=== PATIENT | female | born 1980 | race African-American/Black ===

== ENCOUNTER 2022-10-13 06:21 | Emergency (ER) | payer MEDICAID, OTHER ==
[~2022-10-13] VITALS: Ht 154.9 cm; Wt 66.3 kg
[~2022-10-13 06:21] MED LIST: PRED15SO26 GT
[2022-10-13 06:58] VITALS: BP 146/84; PULSE 94; RESP 16; TEMP 98.1; O2SAT 100
[2022-10-13] MEDS ORDERED: KETOROLAC TROMETH 60MG/2ML VIAL IM ONE (07:15)
[2022-10-13] MEDS ORDERED: PRED20TA2 PO (07:28)
[2022-10-13] MEDS ORDERED: ACET-1080 PO (07:28)
== END 2022-10-13 07:22 | disposition home or self-care (01) ==
LOC: ER 06:21
DX: M79.642 Pain in left hand (principal); E11.9 Type 2 diabetes mellitus without complications; Z79.899 Other long term (current) drug therapy
CPT/HCPCS: 96372; 99283; J1885

== ENCOUNTER 2023-02-13 03:40 | Inpatient (IN) | payer MEDICAID ==
[~2023-02-13] VITALS: Ht 154.9 cm; Wt 73.0 kg
[~2023-02-13 03:40] MED LIST changes: +ACET-1080 PO; +PRED20TA2 PO
[2023-02-13 05:28] LABS: Hemoglobin 8.9 g/dL (12.2-16.2); White Blood Cell 2.2 10^3/uL (4.4-10.8)
[2023-02-13 05:32] LABS: Hematocrit 27.4 % (36.0-46.0); Mean Corpuscular Hgb Conc. 32.5 g/dL (32.0-36.0); Mean Corpuscular Volume 107.8 fL (80.0-100.0); Red Blood Cells 2.54 10^6/uL (4.0-5.20); Red Cell Distribution Width 17.5 % (11.8-14.3)
[2023-02-13 05:34] LABS: Alanine Aminotransferase 44 U/L (7-40); Alkaline Phosphatase 72 U/L (46-116); Anion Gap 12 (5-15); Aspartate Aminotransferase 72 U/L (13-40); BUN/Creatinine Ratio 15.9 (10.0-20.0); Blood Urea Nitrogen 17 mg/dL (9-23); Carbon Dioxide 19 mmol/L (20-30); Chloride 99 mmol/L (98-107); Lipase 190 U/L (12-53); Magnesium 1.7 mg/dL (1.6-2.6); Potassium 3.3 mmol/L (3.5-5.1); Sodium 130 mmol/L (136-145)
[2023-02-13 05:35] LABS: Bilirubin, Total 0.9 mg/dL (0.2-1.0); Total Protein 7.7 g/dL (5.7-8.2)
[2023-02-13 05:42] LABS: INR 1.09 (0.9-1.15); Partial Thromboplastin Time 28.7 SEC (24.5-34.5); Prothrombin Time 11.4 sec (9.3-11.8)
[2023-02-13 05:52] LABS: Basophils % (manual) 0 (0.0-2.0); Blast Cells 0; Eosinophils % (manual) 0 (0-7); Metamyelocytes % 0; Myelocytes % 0; Promyelocytes % 0; Reactive Lymphocytes 0
[2023-02-13 06:03] LABS: Glucose 418 mg/dL (74-106)
[2023-02-13 06:52] LABS: Anisocytosis Slight; Band Neutrophils % (manual) 22; Lymphocytes % (manual) 11 (10.0-50.0); Macrocytosis Marked; Monocytes % (manual) 3 (0-12)
[2023-02-13 06:53] LABS: Platelet Estimate Decreased; Stomatocytes Few; Target Cell FEW
[2023-02-13] MEDS ORDERED: ENOXAPARIN SOD 60 MG/0.6 ML SYRINGE SC ONE (09:00)
[2023-02-13] MEDS ORDERED: InsuLIN REG 1unit/0.01ml Soln (100units/ml) IV ONE (09:00)
[2023-02-13 11:10] VITALS: PULSE 122; RESP 18; O2SAT 99
[2023-02-13] MEDS ORDERED: DEXTROSE (50%) 50ML SYRG IV PRN (11:30)
[2023-02-13] MEDS ORDERED: MORPHINE SULFATE INJ 2 MG/ml SYRG IV PRN (11:45)
[2023-02-13] MEDS ORDERED: NITROGLYCERIN 0.4 MG SL TAB SL PRN (11:45)
[2023-02-13] MEDS ORDERED: INSULIN LANTUS (GLARGINE) 1 /0.01ml (100units/ml) SC ONE (12:30)
[2023-02-13] MEDS ORDERED: cefTRIAXone 1GM/50ML D5W 50 ML IV ONE (12:30)
[2023-02-13] MEDS ORDERED: VANCOMYCIN PER PHARMACY 0 MG IV SCH (12:30)
[2023-02-13] MEDS ORDERED: VANCOMYCIN 1GM/200ML 250 ML IV ONE (13:15)
[2023-02-13] MEDS: ACCU-CHEK COMFORT CURVE STRIP VI SCH ×3 (13:30→22:00)
[2023-02-13] MEDS: InsuLIN REG 1unit/0.01ml Soln (100units/ml) SC SCH ×3 (13:48→22:40)
[2023-02-13 13:52] LABS: COVID19 ANTIGEN SOFIA FIA NEGATIVE (NEGATIVE); Rapid Influenza A Negative (Negative); Rapid Influenza B Negative (Negative)
[2023-02-13 14:24] LABS: Basophils # (auto) 0 10 ^3/uL (0-0.2); Basophils % (auto) 0.5 % (0.0-2.0); Eosinophils # (auto) 0 10 ^3/uL (0-0.8); Eosinophils % (auto) 0.2 % (0.0-7.0); Lymphocytes # (auto) 0.3 10 ^3/uL (0.4-5.4); Monocytes # (auto) 0.1 10 ^3/uL (0-1.3); White Blood Cell 2.4 10^3/uL (4.4-10.8)
[2023-02-13 14:26] LABS: Hematocrit 25.4 % (36.0-46.0); Hemoglobin 8.2 g/dL (12.2-16.2); Lymphocytes % (auto) 13.2 % (10.0-50.0); Mean Corpuscular Hemoglobin 34.9 pg (28.0-32.0); Mean Corpuscular Hgb Conc. 32.4 g/dL (32.0-36.0); Monocytes % (auto) 2.8 % (0.0-12.0); Neutrophils % (auto) 83.3 % (37.0-80.0); Nucleated Red Blood Cells % 0.3 %; Red Blood Cells 2.35 10^6/uL (4.0-5.20); Red Cell Distribution Width 17.6 % (11.8-14.3)
[2023-02-13 15:28] LABS: Platelet Estimate Markedly Decreased
[2023-02-13] MEDS ORDERED: FUROSEMIDE 40 MG/4 ML VIAL IV ONE (15:30)
[2023-02-13 16:38] LABS: Urine Bacteria NONE SEEN /hpf (None Seen); Urine Blood 2+ /uL (Negative); Urine Clarity Clear (Clear); Urine Color Yellow (Yellow); Urine Protein, UAD 2+ (Negative); Urine Specific Gravity 1.021 (1.001-1.035); Urine Urobilinogen Normal (Negative); Urine WBC 1 /hpf (0 - 5)
[2023-02-13] MEDS ORDERED: ACETAMINOPHEN 325 MG TAB PO PRN (17:15)
[2023-02-13] MEDS ORDERED: ONDANSETRON HCL 4 MG/2 ML VIAL IV PRN (17:15)
[2023-02-13] MEDS: POTASSIUM CHL 20MEQ/100ML 100 ML IV SCH ×2 (17:52→21:07)
[2023-02-13] MEDS: MAGNESIUM SULFATE 1GM/100ML 100 ML IV SCH ×2 (18:39→21:38)
[2023-02-14] MEDS: ACCU-CHEK COMFORT CURVE STRIP VI SCH ×4 (06:31→21:48)
[2023-02-14] MEDS: INSULIN LANTUS (GLARGINE) 1 /0.01ml (100units/ml) SC SCH (06:32)
[2023-02-14] MEDS: InsuLIN REG 1unit/0.01ml Soln (100units/ml) SC SCH ×4 (06:32→21:48)
[2023-02-14 07:34] LABS: Basophils # (auto) 0 10 ^3/uL (0-0.2); Eosinophils # (auto) 0 10 ^3/uL (0-0.8); Lymphocytes # (auto) 0.3 10 ^3/uL (0.4-5.4); Monocytes # (auto) 0.1 10 ^3/uL (0-1.3); White Blood Cell 2.4 10^3/uL (4.4-10.8)
[2023-02-14 07:38] LABS: Basophils % (auto) 0.1 % (0.0-2.0); Hematocrit 22.8 % (36.0-46.0); Hemoglobin 7.4 g/dL (12.2-16.2); Lymphocytes % (auto) 10.7 % (10.0-50.0); Mean Corpuscular Hemoglobin 35.4 pg (28.0-32.0); Mean Corpuscular Hgb Conc. 32.2 g/dL (32.0-36.0); Mean Corpuscular Volume 109.9 fL (80.0-100.0); Monocytes % (auto) 5.1 % (0.0-12.0); Neutrophils % (auto) 84.1 % (37.0-80.0); Nucleated Red Blood Cells % 0.3 %; Red Blood Cells 2.08 10^6/uL (4.0-5.20); Red Cell Distribution Width 18.5 % (11.8-14.3)
[2023-02-14 07:55] LABS: Alanine Aminotransferase 42 U/L (7-40); Albumin 3.1 g/dL (3.2-4.8); Alkaline Phosphatase 54 U/L (46-116); Anion Gap 10 (5-15); Aspartate Aminotransferase 109 U/L (13-40); BUN/Creatinine Ratio 8.9 (10.0-20.0); Blood Urea Nitrogen 8 mg/dL (9-23); Calcium 8.1 mg/dL (8.5-10.1); Carbon Dioxide 17 mmol/L (20-30); Chloride 106 mmol/L (98-107); Glucose 160 mg/dL (74-106); LDL Cholesterol 59 mg/dL (< 100); Potassium 3.3 mmol/L (3.5-5.1); Sodium 133 mmol/L (136-145); Triglycerides 179 mg/dL (< 150)
[2023-02-14 07:56] LABS: Bilirubin, Total 0.4 mg/dL (0.2-1.0); Cholesterol 142 mg/dL (< 200); HDL Cholesterol 51 mg/dL (40-59); Phosphorus 1.6 mg/dL (2.4-5.1); Total Protein 6.1 g/dL (5.7-8.2)
[2023-02-14 08:00] LABS: Lactic Acid w/Reflex 2.9 mmol/L (0.4-2.0)
[2023-02-14 08:15] LABS: Platelet Estimate Decreased
[2023-02-14 08:16] LABS: Macrocytosis Moderate
[2023-02-14 08:21] LABS: Creatinine, Urine 67.24 mg/dL (30.0-125.0)
[2023-02-14 08:35] LABS: % Iron Saturation 4.9 % (15-50)
[2023-02-14 08:39] LABS: Erythrocyte Sedimentation Rate 129 mm/hr (0-20)
[2023-02-14 08:46] LABS: Magnesium 1.7 mg/dL (1.6-2.6)
[2023-02-14 09:00] VITALS: BP 147/87; PULSE 128; RESP 16; TEMP 98.2; O2SAT 96
[2023-02-14] MEDS ORDERED: POTASSIUM EFFERVESENT TAB 25 MEQ PO ONE (09:15)
[2023-02-14] MEDS: cefTRIAXone 1GM/50ML D5W 50 ML IV SCH (10:44)
[2023-02-14] MEDS: PANTOPRAZOLE 40 MG TAB PO SCH (10:45)
[2023-02-14] MEDS: VANCOMYCIN 1GM/200ML 250 ML IV SCH (10:45)
[2023-02-14] MEDS: FUROSEMIDE 40 MG/4 ML VIAL IV SCH (10:46)
[2023-02-14 10:59] LABS: Folate (Folic Acid) 15.53 ng/mL (>5.38)
[2023-02-14 13:00] VITALS: BP 138/89; PULSE 129; RESP 16; TEMP 100.2; O2SAT 90
[2023-02-14] MEDS ORDERED: SODIUM PHOSPHATES 24 MEQ in SODIUM CHL 0.9% 100 ML IV ONE (13:45)
[2023-02-14] MEDS: MAGNESIUM SULFATE 1GM/100ML 100 ML IV SCH ×2 (15:18→18:32)
[2023-02-14 17:00] VITALS: BP 135/78; PULSE 120; RESP 18; TEMP 98.2; O2SAT 95
[2023-02-14] MEDS: HYDROcodone-ACET 5/325MG TAB PO PRN (18:31)
[2023-02-14 20:00] VITALS: BP 124/74; PULSE 121; PULSE 123; RESP 20; TEMP 98.5; O2SAT 97
[2023-02-14] MEDS ORDERED: ERGOCALCIFEROL 50,000 UNIT(1.25MG) CAP PO SCH (21:30)
[2023-02-14] MEDS: DOCUSATE SOD 100 MG CAP PO SCH (21:48)
[2023-02-14 22:00] VITALS: BP 124/74; PULSE 123; RESP 20; TEMP 98.5; O2SAT 97
[2023-02-15] VITALS (7 sets, daily range): BP systolic 140–150; BP diastolic 57–86; PULSE 123–140; RESP 16–20; TEMP 97.7–103.2; O2SAT 93–100
[2023-02-15] MEDS ORDERED: MUPI2OIN2 TOP (00:16)
[2023-02-15] MEDS ORDERED: OMEP-411 PO (00:16)
[2023-02-15] MEDS ORDERED: METF-1145 PO (00:16)
[2023-02-15] MEDS ORDERED: ACET300T49 PO (00:16)
[2023-02-15] MEDS ORDERED: AMLO1TAB22 PO (00:16)
[2023-02-15] MEDS ORDERED: CYCL-611 PO (00:16)
[2023-02-15] MEDS ORDERED: INSU1INJ3 SC (00:16)
[2023-02-15] MEDS ORDERED: CETI-120 PO (00:16)
[2023-02-15] MEDS: VANCOMYCIN 1GM/200ML 250 ML IV SCH ×2 (00:31→10:48)
[2023-02-15] MEDS ORDERED: MAGN400T40 PO (00:52)
[2023-02-15] MEDS: ACCU-CHEK COMFORT CURVE STRIP VI SCH ×4 (06:02→21:51)
[2023-02-15] MEDS: InsuLIN REG 1unit/0.01ml Soln (100units/ml) SC SCH ×4 (06:02→21:51)
[2023-02-15] MEDS: INSULIN LANTUS (GLARGINE) 1 /0.01ml (100units/ml) SC SCH (06:03)
[2023-02-15 07:10] LABS: Hemoglobin 7.3 g/dL (12.2-16.2); Red Blood Cells 2.08 10^6/uL (4.0-5.20)
[2023-02-15 07:12] LABS: Hematocrit 22.6 % (36.0-46.0); Mean Corpuscular Hemoglobin 35.2 pg (28.0-32.0); Mean Corpuscular Hgb Conc. 32.3 g/dL (32.0-36.0); Red Cell Distribution Width 17.9 % (11.8-14.3)
[2023-02-15 07:39] LABS: Alanine Aminotransferase 38 U/L (7-40); Albumin 3.1 g/dL (3.2-4.8); Alkaline Phosphatase 59 U/L (46-116); Anion Gap 8 (5-15); Aspartate Aminotransferase 79 U/L (13-40); Bilirubin, Total 0.5 mg/dL (0.2-1.0); Blood Urea Nitrogen 6 mg/dL (9-23); Calcium 7.8 mg/dL (8.7-10.4); Carbon Dioxide 21 mmol/L (20-30); Chloride 102 mmol/L (98-107); Glucose 179 mg/dL (74-106); Magnesium 1.8 mg/dL (1.6-2.6); Potassium 3.6 mmol/L (3.5-5.1); Sodium 131 mmol/L (136-145); Total Protein 6.2 g/dL (5.7-8.2)
[2023-02-15 08:18] LABS: White Blood Cell 1.7 10^3/uL (4.4-10.8)
[2023-02-15 08:19] LABS: Band Neutrophils % (manual) 0; Basophils % (manual) 0 (0.0-2.0); Blast Cells 0; Eosinophils % (manual) 0 (0-7); Metamyelocytes % 0; Myelocytes % 0; Promyelocytes % 0; Reactive Lymphocytes 0
[2023-02-15 08:25] LABS: Lymphocytes % (manual) 11 (10.0-50.0); Monocytes % (manual) 6 (0-12)
[2023-02-15 08:26] LABS: Platelet Estimate Decreased
[2023-02-15] MEDS: FUROSEMIDE 40 MG/4 ML VIAL IV SCH (10:49)
[2023-02-15] MEDS: DOCUSATE SOD 100 MG CAP PO SCH ×2 (10:49→21:08)
[2023-02-15] MEDS: PANTOPRAZOLE 40 MG TAB PO SCH (10:49)
[2023-02-15] MEDS: CYANOCOBALAMIN 500 MCG TAB PO SCH (11:04)
[2023-02-15] MEDS: cefTRIAXone 1GM/50ML D5W 50 ML IV SCH (12:52)
[2023-02-15] MEDS ORDERED: POTASSIUM EFFERVESENT TAB 25 MEQ PO ONE (13:30)
[2023-02-15] MEDS ORDERED: MAGNESIUM SULFATE 1GM/100ML 100 ML IV ONE (13:30)
[2023-02-15] MEDS ORDERED: ceFAZolin 2 GM/D5W100ml 100 ML IV ONE (14:30)
[2023-02-15] MEDS ORDERED: VANCOMYCIN PER PHARMACY 0 MG IV SCH (16:00)
[2023-02-15] MEDS ORDERED: FUROSEMIDE 40 MG/4 ML VIAL IV ONE (17:15)
[2023-02-15] MEDS ORDERED: ACETAMINOPHEN 325 MG TAB PO ONE (19:45)
[2023-02-15] MEDS ORDERED: ACETAMINOPHEN 325 MG TAB PO PRN (19:45)
[2023-02-15] MEDS: CEFEPIME 2GM/50ML NS 50 ML IV SCH (21:07)
[2023-02-15] MEDS ORDERED: ceFAZolin 2 GM/D5W100ml 100 ML IV SCH (22:00)
[2023-02-15 23:07] LABS: Urine Bacteria FEW /hpf (None Seen); Urine Blood 3+ /uL (Negative); Urine Clarity Clear (Clear); Urine Color Colorless (Yellow); Urine Hyaline Cast FEW /lpf (0 - 2); Urine Protein, UAD 1+ (Negative); Urine Urobilinogen Normal (Negative); Urine WBC 14 /hpf (0 - 5); Urine pH 7.5 (5.0-8.0)
[2023-02-16] VITALS (8 sets, daily range): BP systolic 114–130; BP diastolic 64–84; PULSE 62–122; RESP 14–19; TEMP 97.3–99.9; O2SAT 91–100
[2023-02-16] MEDS: CEFEPIME 2GM/50ML NS 50 ML IV SCH ×2 (05:50→14:00)
[2023-02-16] MEDS: InsuLIN REG 1unit/0.01ml Soln (100units/ml) SC SCH ×4 (06:13→21:42)
[2023-02-16] MEDS: ACCU-CHEK COMFORT CURVE STRIP VI SCH ×4 (06:14→21:22)
[2023-02-16] MEDS: INSULIN LANTUS (GLARGINE) 1 /0.01ml (100units/ml) SC SCH (06:14)
[2023-02-16 07:53] LABS: Basophils # (auto) 0 10 ^3/uL (0-0.2); Eosinophils # (auto) 0 10 ^3/uL (0-0.8); Eosinophils % (auto) 0.1 % (0.0-7.0); Lymphocytes # (auto) 0.3 10 ^3/uL (0.4-5.4); Mean Corpuscular Hemoglobin 34.2 pg (28.0-32.0); Red Cell Distribution Width 17.5 % (11.8-14.3)
[2023-02-16 07:55] LABS: Basophils % (auto) 0.3 % (0.0-2.0); Hematocrit 23.9 % (36.0-46.0); Hemoglobin 7.7 g/dL (12.2-16.2); Lymphocytes % (auto) 9.2 % (10.0-50.0); Mean Corpuscular Hgb Conc. 32.4 g/dL (32.0-36.0); Mean Corpuscular Volume 105.8 fL (80.0-100.0); Monocytes # (auto) 0.3 10 ^3/uL (0-1.3); Monocytes % (auto) 9.9 % (0.0-12.0); Neutrophils # (auto) 2.6 10 ^3/uL (1.6-8.6); Neutrophils % (auto) 80.5 % (37.0-80.0); Nucleated Red Blood Cells % 0.4 %; Red Blood Cells 2.26 10^6/uL (4.0-5.20); White Blood Cell 3.2 10^3/uL (4.4-10.8)
[2023-02-16 08:18] LABS: Chloride 98 mmol/L (98-107); Potassium 4.2 mmol/L (3.5-5.1); Sodium 130 mmol/L (136-145)
[2023-02-16 08:19] LABS: Anion Gap 8 (5-15); Calcium 8.3 mg/dL (8.5-10.1); Carbon Dioxide 24 mmol/L (20-30)
[2023-02-16 08:24] LABS: Blood Urea Nitrogen 8 mg/dL (9-23); Glucose 179 mg/dL (74-106)
[2023-02-16] MEDS: FUROSEMIDE 40 MG/4 ML VIAL IV SCH (10:17)
[2023-02-16] MEDS: CYANOCOBALAMIN 500 MCG TAB PO SCH (10:17)
[2023-02-16] MEDS: DOCUSATE SOD 100 MG CAP PO SCH ×2 (10:17→21:22)
[2023-02-16] MEDS: HYDROcodone-ACET 5/325MG TAB PO PRN ×2 (10:17→21:36)
[2023-02-16] MEDS: PANTOPRAZOLE 40 MG TAB PO SCH (10:17)
[2023-02-16 10:57] LABS: Macrocytosis Moderate
[2023-02-16 11:02] LABS: Platelet Estimate Decreased
[2023-02-16] MEDS ORDERED: MIDAZOLAM HCL 2MG/2ML 2ml VIAL (1mg/ml) IV ONE (14:15)
[2023-02-16] MEDS ORDERED: fentaNYL CITRATE 100 MCG/2 ML VL IV ONE (14:15)
[2023-02-16] MEDS ORDERED: LIDOCAINE VISCOUS 2% 15ML UD PO ONE (14:15)
[2023-02-16] MEDS ORDERED: predniSONE 20 MG TAB PO ONE (19:15)
[2023-02-16] MEDS: VANCOMYCIN 1GM/200ML 250 ML IV SCH (21:33)
[2023-02-17] VITALS (7 sets, daily range): BP systolic 91–114; BP diastolic 67–79; PULSE 102–113; RESP 15–18; TEMP 97.8–98.3; O2SAT 91–98
[2023-02-17] MEDS: CEFEPIME 2GM/50ML NS 50 ML IV SCH ×3 (00:20→18:21)
[2023-02-17] MEDS: ACCU-CHEK COMFORT CURVE STRIP VI SCH ×3 (06:13→18:22)
[2023-02-17] MEDS: InsuLIN REG 1unit/0.01ml Soln (100units/ml) SC SCH ×3 (06:19→18:26)
[2023-02-17] MEDS: INSULIN LANTUS (GLARGINE) 1 /0.01ml (100units/ml) SC SCH (06:20)
[2023-02-17 07:41] LABS: Alanine Aminotransferase 32 U/L (7-40); Albumin 3.3 g/dL (3.2-4.8); Alkaline Phosphatase 62 U/L (46-116); Anion Gap 11 (5-15); Aspartate Aminotransferase 60 U/L (13-40); BUN/Creatinine Ratio 13.6 (10.0-20.0); Bilirubin, Total 0.3 mg/dL (0.2-1.0); Blood Urea Nitrogen 12 mg/dL (9-23); Calcium 8.6 mg/dL (8.5-10.1); Carbon Dioxide 19 mmol/L (20-30); Chloride 98 mmol/L (98-107); Glucose 229 mg/dL (74-106); Potassium 4.4 mmol/L (3.5-5.1); Sodium 128 mmol/L (136-145); Total Protein 6.7 g/dL (5.7-8.2)
[2023-02-17 07:43] LABS: Basophils # (auto) 0 10 ^3/uL (0-0.2); Eosinophils # (auto) 0 10 ^3/uL (0-0.8); Lymphocytes # (auto) 0.2 10 ^3/uL (0.4-5.4); Lymphocytes % (auto) 4.1 % (10.0-50.0); Neutrophils # (auto) 4.3 10 ^3/uL (1.6-8.6); Red Cell Distribution Width 17.6 % (11.8-14.3)
[2023-02-17 07:45] LABS: Basophils % (auto) 0.2 % (0.0-2.0); Hematocrit 22.8 % (36.0-46.0); Hemoglobin 7.6 g/dL (12.2-16.2); Mean Corpuscular Hemoglobin 35.4 pg (28.0-32.0); Mean Corpuscular Hgb Conc. 33.3 g/dL (32.0-36.0); Mean Corpuscular Volume 106.5 fL (80.0-100.0); Monocytes # (auto) 0.3 10 ^3/uL (0-1.3); Monocytes % (auto) 5.8 % (0.0-12.0); Neutrophils % (auto) 89.9 % (37.0-80.0); Nucleated Red Blood Cells % 0.2 %; Red Blood Cells 2.14 10^6/uL (4.0-5.20); White Blood Cell 4.8 10^3/uL (4.4-10.8)
[2023-02-17 07:54] LABS: INR 1.01 (0.9-1.15); Partial Thromboplastin Time 36.5 SEC (24.5-34.5); Prothrombin Time 10.6 sec (9.3-11.8)
[2023-02-17] MEDS: PANTOPRAZOLE 40 MG TAB PO SCH (09:04)
[2023-02-17] MEDS: DOCUSATE SOD 100 MG CAP PO SCH (09:04)
[2023-02-17] MEDS: CYANOCOBALAMIN 500 MCG TAB PO SCH (09:06)
[2023-02-17 09:14] LABS: Macrocytosis Moderate; Platelet Estimate Decreased
[2023-02-17 09:15] LABS: Ovalocytes MODERATE; Tear Drop Cells MODERATE
[2023-02-17] MEDS: FUROSEMIDE 40 MG/4 ML VIAL IV SCH (10:00)
[2023-02-17] MEDS ORDERED: predniSONE 20 MG TAB PO SCH (10:00)
[2023-02-17] MEDS: VANCOMYCIN 1GM/200ML 250 ML IV SCH (12:59)
== END 2023-02-17 21:40 | disposition short-term general hospital (02) | DRG 720 ==
LOC: ER 03:40 → TELE 11:50 → TELE-WESTW 02-14 08:44
PROVIDERS: ADMIT Internal Medicine; ATTEND Internal Medicine
PROC: B24BZZ4 Ultrasonography of Heart with Aorta, Transesophageal (ICD-10-PCS; principal; 2023-02-16)
DX: A41.9 Sepsis, unspecified organism (principal); N17.0 Acute kidney failure with tubular necrosis; I21.A1 Myocardial infarction type 2; D61.818 Other pancytopenia; K85.90 Acute pancreatitis without necrosis or infection, unspecified; I50.33 Acute on chronic diastolic (congestive) heart failure; I31.39 Other pericardial effusion (noninflammatory); M32.9 Systemic lupus erythematosus, unspecified; E11.65 Type 2 diabetes mellitus with hyperglycemia; L03.115 Cellulitis of right lower limb; D53.9 Nutritional anemia, unspecified; L53.8 Other specified erythematous conditions; R16.0 Hepatomegaly, not elsewhere classified; E11.649 Type 2 diabetes mellitus with hypoglycemia without coma; E53.8 Deficiency of other specified B group vitamins; K59.00 Constipation, unspecified; E55.9 Vitamin D deficiency, unspecified; R74.01 Elevation of levels of liver transaminase levels; E87.6 Hypokalemia; Z83.3 Family history of diabetes mellitus; Q32.1 Other congenital malformations of trachea
CPT/HCPCS: 36415; 36600; 71045; 71250; 74176; 76775; 80048; 80053; 80061; 80202; 81001; 82010; 82140; 82306; 82533; 82570; 82607; 82746; 82805; 82962; 83036; 83540; 83550; 83605; 83615; 83690; 83735; 83880; 84100; 84300; 84443; 84484; 85007; 85025; 85027; 85379; 85610; 85652; 85730; 86141; 86880; 87040; 87081; 87086; 87426; 87804; 93005; 93306; 93312; 93925; 93970; 96372; 99152; 99291; G0378; J0692; J1815; J2250; J3480

== ENCOUNTER 2024-02-07 00:10 | Inpatient (IN) | payer MEDICAID ==
[~2024-02-07] VITALS: Ht 153.2 cm; Wt 77.1 kg
[~2024-02-07 00:10] MED LIST changes: +ACET300T49 PO; +AMLO1TAB22 PO; +CEPH250C PO; +CETI-120 PO; +CYCL-611 PO; +FERR325T20 PO; +HYDR-4491 PO; +INSU1INJ3 SC; +MAGN400T40 PO; +METF-1145 PO; +METO25TA5 PO; +MUPI2OIN2 TOP; +NAP500T PO; +OMEP-411 PO; +PRE5T PO; -PRED15SO26 GT
--- NOTE | 2024-02-07 00:54 | ED.PDOC ---
Musculoskeletal HPI Comments HPI: Poor Historian. 43-year-old female presents to emergency department for chronic symptoms of bilateral feet swelling. Patient had an ultrasound two weeks ago if bilateral lower extremities and she was seen by Podiatry yesterday who referred her to vascular surgeon who will see her in few days this week. Patient felt that her leg is not warm enough today and was concerned and decided to come here for further evaluation. Past Medcial History: Diabetes and lupus Past Surgical History: REVIEW OF SYSTEMS: CONSTITUTIONAL: Denies acute: fever, diaphoresis, chills, generalized weakness. HEAD: Denies acute: headache, photophobia Eyes: Denies acute: Double vision, vision loss, eye pain, eye discharge. EARS: Denies acute: tinnitus, hearing loss, ear discharge, ear pain, THROAT: Denies acute: sore throat, swelling, difficulty swallowing , pain with swallowing, change in voice. NECK: Denies acute: neck pain, neck swelling, stiff neck. HEART: Denies acute : chest pain, palpitations, LUNGS: Denies acute: SOB, wheezing, cough, hemoptysis ABDOMEN: Denies acute: abdominal pain, Nausea, Vomiting, diarrhea, melena , hematemesis, hematochezia SKIN: Denies acute: rash, redness, lesions, itchiness. EXTREMITIES: Denies acute: calf pain, numbness, tingling, weakness, denies pain in extremity. Denies acute: Low back pain. Neuro: Denies acute: focal neurological deficit, motor or sensory focal neurological deficit, tremors, seizure like activity, confusion, dizziness, change in mental status, loss of bowel or bladder function, cauda equina like symptoms. : Denies acute: dysuria, hematuria, flank pain, increase in urinary frequency. PSYCH: Denies acute: hallucination, suicidal ideation, homicidal ideation. FEMALE: Denies acute: abnormal vaginal bleeding, foul odor, unusual discharge. PHYSICAL EXAM: General: no acute distress, awake and alert. Head: normocephalic, atraumatic. Neck: supple, trachea is midline, no swelling. Throat: Normal phonation. Eyes:, no erythema, no purulent discharge, no proptosis, no icterus. Heart: regular rate, regular rhythm, no significant murmur appreciated. Lungs: no apparent respiratory distress, Able to speak in full sentences. No wheezing, no rhonchi, no crackles. No stridors Clear to auscultation bilaterally. Abdomen: non tender to palpation, non distended, soft, no guarding, no rebound, + bowel sounds. Neuro: Awake, Alert, oriented to name, self, situation, follows commands GCS=15. Speech is normal. Skin: no petechia, no purpura, no cyanosis, non-pale, not jaundice. Lower extremities: --2/4 bilateral - Pitting edema no deformity, no focal swelling, no calf TTP. Pedal pulses are palpable in bilateral feet. Makes eye contact. moves all four extremities. Face: no apparent facial droop. Ambulating in the ED independently. Time Seen by MD: 00:48 Primary Care Provider: Brice Reviewed Notes: Nurses Notes, Medications, Allergies Allergies: Coded Allergies: NO KNOWN ALLERGIES (Unverified , 12/01/12) Home Meds Active Scripts Acetaminophen (Tylenol 8 Hour Arthritis) 650 Mg Tab, 650 MG PO TID, #30 TAB Prov:MOLINA DUFFY 10/13/22 Prednisone (Prednisone) 20 Mg Tab, 40 MG PO DAILY, #20 MG Prov:MOLINA DUFFY 10/13/22 Reported Medications Magnesium Oxide (MAGNESIUM OXIDE) 400 Mg Tab, 1 TAB PO BID, #60 TAB 5 Refills 02/15/23 Cyclobenzaprine HCl (Cyclobenzaprine Hydrochlo) 10 Mg Tab, 1 TAB PO HS 02/15/23 Mupirocin (Pseudomonas Fluores (Mupirocin) 2 % Oin, 1 APPLIC TOP BID 02/15/23 Acetaminophen W/ Codeine (Acetaminophen/Codeine #2) 1 Tab Tab, 1 TAB PO Q6HPRN for pain 02/15/23 Metformin Hydrochloride (Metformin Hcl Er) 500 Mg Tab, 2 TAB PO BID 02/15/23 Cetirizine HCl (Cetirizine Hydrochloride) 10 Mg Tab, 1 TAB PO DAILY 02/15/23 Insulin NPH Isophane & Reg (Hu (Humulin 70/30 Kwikpen (70-30) 100 Unit/ml) 1 Inj Inj, 10 UNITS SC 02/15/23 Omeprazole (Cvs Omeprazole Odt) 20 Mg Tab, 40 MG PO DAILY Take 1 tablet by mouth daily 30 minutes before meal 02/15/23 Amlodipine Besylate (Amlodipine Besylate) 5 Mg Tab, 1 TAB PO DAILY 02/15/23 Information Source: Patient Past Medical History PAST MEDICAL HISTORY: DM Surgical History: Denies all surgeries RETAIL CUSTOMER SERVICE SPECIALIST History: No Pertinent RETAIL CUSTOMER SERVICE SPECIALIST History Family History Family History: Reviewed,noncontributory to illness Social History Smoker: Non-Smoker Alcohol: Denies ETOH Use Drugs: Denies Drug Use Lives In: Home X-Ray, Labs, Meds, VS Vital Signs Date Time Temp Pulse Resp B/P (MAP) Pulse Ox O2 Delivery O2 Flow Rate FiO2 02/07/24 02:37 129 02/07/24 00:52 97.9 127 18 188/114 (138) 97 Lab Test 02/07/24 03:52 02/07/24 02:30 02/07/24 01:01 Range/Units Troponin I High Sensitivity Pending 102 *H 95 *H </=34 ng/L Lactic Acid Level 2.5 *H 2.3 *H 0.4-2.0 mmol/L White Blood Count 8.9 4.4-10.8 10^3/uL Red Blood Count 3.69 L 4.0-5.20 10^6/uL Hemoglobin 12.0 L 12.2-16.2 g/dL Hematocrit 37.1 36.0-46.0 % Mean Corpuscular Volume 100.5 H 80.0-100.0 fL Mean Corpuscular Hemoglobin 32.4 H 28.0-32.0 pg Mean Corpuscular Hemoglobin Concent 32.3 32.0-36.0 g/dL Red Cell Distribution Width 15.2 H 11.8-14.3 % Platelet Count 80 L 140-450 10^3/uL Mean Platelet Volume 10.0 6.9-10.8 fL Neutrophils (%) (Auto) 81.8 H 37.0-80.0 % Lymphocytes (%) (Auto) 11.4 10.0-50.0 % Monocytes (%) (Auto) 5.7 0.0-12.0 % Eosinophils (%) (Auto) 0.5 0.0-7.0 % Basophils (%) (Auto) 0.6 0.0-2.0 % Neutrophils # (Auto) 7.3 1.6-8.6 10 ^3/uL Lymphocytes # (Auto) 1.0 0.4-5.4 10 ^3/uL Monocytes # (Auto) 0.5 0-1.3 10 ^3/uL Eosinophils # (Auto) 0 0-0.8 10 ^3/uL Basophils # (Auto) 0.1 0-0.2 10 ^3/uL Nucleated Red Blood Cells 0.7 % Platelet Estimate Decreased Macrocytosis Slight Sodium Level 140 136-145 mmol/L Potassium Level 3.4 L 3.5-5.1 mmol/L Chloride Level 103 98-107 mmol/L Carbon Dioxide Level 23 20-31 mmol/L Anion Gap 14 5-15 Blood Urea Nitrogen 8 L 9-23 mg/dL Creatinine 0.84 0.550-1.02 mg/dL Glomerular Filtration Rate Calc 88 >90 mL/min BUN/Creatinine Ratio 9.5 L 10.0-20.0 Serum Glucose 293 H 74-106 mg/dL Calcium Level 8.9 8.7-10.4 mg/dL Magnesium Level 1.1 L 1.6-2.6 mg/dL Total Bilirubin 1.3 H 0.2-1.0 mg/dL Aspartate Amino Transferase (AST) 43 H 13-40 U/L Alanine Aminotransferase (ALT) 23 7-40 U/L Alkaline Phosphatase 423 H 46-116 U/L B-Type Natriuretic Peptide 1939.74 0-100 pg/mL Total Protein 6.8 5.7-8.2 g/dL Albumin 3.9 3.2-4.8 g/dL [place] [address] Ph: [phone] DIAGNOSTIC IMAGING Diagnostic Imaging Report : [id number] Signed PATIENT: LIO MARTIN ACCT: [id number] UNIT: [id number] : 1980 LOC: ER ROOM / BED: / AGE / SEX: 43 / F ADM STATUS: REG ER SERVICE [id number] ORDERING PHYSICIAN: KRISS POLLOCK DO PROCEDURE(s): BLDVT - BiLat Lower DVT REASON: feet swelling ORDER NUMBER(s): [id number], ACCESSION NUMBER(s): [id number] Examination: BLDVT CLINICAL INDICATION: feet swelling COMPARISON: None. TECHNIQUE: Using real-time ultrasonic imaging and color Doppler, the deep venous system of both lower extremities was studied from the level of the common femoral veins to the posterior tibial veins. FINDINGS: Ultrasound examination of bilateral common femoral veins, bilateral deep femoral veins, the proximal, middle and distal segments of bilateral superficial femoral veins, bilateral popliteal veins, and bilateral posterior tibial veins reveal normal phasicity and compression and augmentation. No thrombus was visualized. IMPRESSION: There is no evidence of deep venous thrombosis in bilateral lower extremity venous systems. Electronically Signed 02/07/2024 02:38 Keya Rubalcava ATED BY: KHADAR FUNES MD DICTATED DATE/TIME: 02/07/24237 SIGNED BY: KHADAR FUNES MD SIGNED DATE/TIME: 02/07/24237 Time of 1ST Reevaluation: 03:33 (The case was discussed with the [place] admitting team (HPI, physical exam, labs and diagnostic tests that were available at the time of disposition, ED course, treatment plan) on the phone. They authorized us to admit the patient in our facility for further evaluation and treatment. Dr. Cabral authorization number is [id number]. ) Reevaluation 1ST: Unchanged Patient Education/Counseling: Diagnosis, Treatment Family Education/Counseling: No Family Present Departure 1 Departure Time of Disposition: 01:39 Impression: Primary Impression: Leg swelling Additional Impressions: Elevated brain natriuretic peptide (BNP) level Hypomagnesemia Hypertension Sinus tachycardia Elevated troponin Thrombocytopenia Disposition: 09 ADMITTED INPATIENT Admit to: [facility] Condition: Guarded Discharged With: Self I personally scribed for KRISS POLLOCK DO ([email or web address]) on 02/07/24 at 03:15. Electronically submitted by Maicol Harris ([email or web address]). KRISS POLLOCK DO Feb 07, 2024 00:54
[2024-02-07 01:21] LABS: Basophils # (auto) 0.1 10 ^3/uL (0-0.2); Basophils % (auto) 0.6 % (0.0-2.0); Eosinophils # (auto) 0 10 ^3/uL (0-0.8); Eosinophils % (auto) 0.5 % (0.0-7.0); Hematocrit 37.1 % (36.0-46.0); Lymphocytes % (auto) 11.4 % (10.0-50.0); Mean Corpuscular Hemoglobin 32.4 pg (28.0-32.0); Mean Corpuscular Hgb Conc. 32.3 g/dL (32.0-36.0); Mean Corpuscular Volume 100.5 fL (80.0-100.0); Monocytes # (auto) 0.5 10 ^3/uL (0-1.3); Monocytes % (auto) 5.7 % (0.0-12.0); Neutrophils # (auto) 7.3 10 ^3/uL (1.6-8.6); Neutrophils % (auto) 81.8 % (37.0-80.0); Nucleated Red Blood Cells % 0.7 %; Platelet Count (auto) 80 10^3/uL (140-450); Red Blood Cells 3.69 10^6/uL (4.0-5.20); Red Cell Distribution Width 15.2 % (11.8-14.3); White Blood Cell 8.9 10^3/uL (4.4-10.8)
[2024-02-07 01:32] LABS: Alanine Aminotransferase 23 U/L (7-40); Albumin 3.9 g/dL (3.2-4.8); Anion Gap 14 (5-15); BUN/Creatinine Ratio 9.5 (10.0-20.0); Calcium 8.9 mg/dL (8.7-10.4); Carbon Dioxide 23 mmol/L (20-31); Chloride 103 mmol/L (98-107); Sodium 140 mmol/L (136-145); Total Protein 6.8 g/dL (5.7-8.2)
[2024-02-07 01:35] LABS: Alkaline Phosphatase 423 U/L (46-116); Aspartate Aminotransferase 43 U/L (13-40); Bilirubin, Total 1.3 mg/dL (0.2-1.0); Blood Urea Nitrogen 8 mg/dL (9-23); Glucose 293 mg/dL (74-106); Magnesium 1.1 mg/dL (1.6-2.6); Potassium 3.4 mmol/L (3.5-5.1)
[2024-02-07 01:43] LABS: Lactic Acid w/Reflex 2.3 mmol/L (0.4-2.0)
[2024-02-07] MEDS ORDERED: FUROSEMIDE 100 MG/10ML VIAL IV ONE (01:45)
[2024-02-07 01:56] LABS: Macrocytosis Slight; Platelet Estimate Decreased
[2024-02-07] MEDS: ASPirin 325 MG TAB PO ONE ×2 (02:00→08:00)
--- NOTE | 2024-02-07 02:41 | DVH ---
Examination: BLDVT CLINICAL INDICATION: feet swelling COMPARISON: None. TECHNIQUE: Using real-time ultrasonic imaging and color Doppler, the deep venous system of both lowe r extremities was studied from the level of the common femoral veins to the posterior tibial veins. FINDINGS: Ultrasound examination of bilateral common femoral veins, bilateral deep femoral veins, the proximal, middle and distal segments of bilateral superficial femoral veins, bilateral popliteal veins, and bi lateral posterior tibial veins reveal normal phasicity and compression and augmentation. No thrombus was visualized. IMPRESSION: There is no evidence of deep venous thrombosis in bilateral lower extremity venous syste ms. Electronically Signed 02/07/2024 02:38 Keya Rubalcava
--- NOTE | 2024-02-07 04:00 | DVH ---
CHEST RADIOGRAPH Indication: leg swelling Technique: Single frontal view of the chest was obtained Comparison: XY CHEST PORTABLE on DOS: 02/17/23, XY CHEST PORTABLE on DOS: 02/15/23, XY CHEST PORTABLE on DOS: 02/13/23 IMPRESSION: The cardiac silhouette is enlarged. Possible patchy focal airspace opacity in the right lower lung wi th possible trace effusions. No pneumothorax.
--- NOTE | 2024-02-07 06:37 | DVHHP2 ---
History of Present Illness Reason for Visit: ble edema and foot pain feeling of coldness to right foot History of Present Illness 43-year-old female past medical history diabetes lupus CHF transaminitis surgical history gallbladder surgery chief complaint patient states that she has been having some issues with the foot he has been going on since Monday she went to [place] saw Podiatry and they referred her to vascular vascular did a virtual assessment in had an appointment set up for her this coming Monday to see her in person but patient states yesterday the pain was so severe in his swelling got worse to her lower extremities so she came to the ER for evaluation she states her toes feel cold in the not able to sleep because of the pain. Patient does state she had some lupus. She has been taking her medications as prescribed. She does see unarmed security officer at [place] also. She denies any chest pain no shortness with the breath. When evaluating patient's labs and imaging looks like ceftriaxone was given aspirin Lasix Mag hemoglobin was 12.0 platelet count was [address] lactate was 2.5 ultrasound was completed negative for DVT chest x-ray shows enlarged heart questionable pneumonia in the right lower lobe potassium was low at 3.4 glucose was elevated at 293 Mag was low at 1.1 total bili is 1.3 AST was 43 alkaline phosphatase 423 BNP was elevated at 1939, troponins were slightly elevated x3. When evaluating patient's chart patient was found to have an echocardiogram completed April 06, 2022 EF was 55% at that time With these findings we will admit patient we will ask for vascular consult Cardiology consult and Podiatry consult. Past Medical History diabetes, lups, chf, transaminitis Past Surgical History gallbladder Family History Reviewed, non-contributory to the management of this case. Past Social History The patient lives at home, denies smoking, alcohol or illicit drugs abuse. Review of Systems Constitutional: No: Fever, Chills, Sweats, Weakness, Malaise, Other Eyes: No: Pain, Vision change, Conjunctivae inflammation, Eyelid inflammation, Other, Redness ENT: No: Ear pain, Ear discharge, Nose pain, Nose discharge, Nose congestion, Mouth pain, Mouth swelling, Throat pain, Throat swelling, Other Respiratory: No: Cough, Dry, Shortness of breath, SOB with excertion, Wheezing, Hemoptysis, Pleuritic Pain, Sputum, Wheezing, Other Cardiovascular: No: Chest Pain, Palpitations, Orthopnea, Paroxysmal Noc. Dyspnea, Edema, Lt Headedness, Other Gastrointestinal: No: Nausea, Vomiting, Abdominal Pain, Diarrhea, Constipation, Melena, Hematochezia, Other Genitourinary: No Dysuria, No Frequency, No Incontinence, No Hematuria, No Retention, No Other Musculoskeletal: leg pain, foot pain; No: other, neck pain, shoulder pain, arm pain, back pain, hand pain Skin: No: Rash, Lesions, Jaundice, Bruising, Other Neurological: No: Weakness, Numbness, Incoordination, Change in speech, Confusion, Seizures, Other Allergies: Coded Allergies: NO KNOWN ALLERGIES (Unverified , 12/01/12) Exam Vital Signs Vital Signs Date Time Temp Pulse Resp B/P (MAP) Pulse Ox O2 Delivery O2 Flow Rate FiO2 02/07/24 02:37 129 02/07/24 00:52 97.9 18 188/114 (138) 97 General Appearance: Alert, Oriented X3, Cooperative, No acute distress, Other (appears to be in pain ) HEENT: Atraumatic, PERRLA, EOMI, Mucous membr. moist/pink Respiratory: Clear to auscultation, Normal air movement Cardiovascular: Regular rate, Normal S1, Normal S2, No murmurs, Other (tachycardia ) Abdominal: Normal bowel sounds, Soft, No tenderness, No hepatospenomegaly, No masses Extremities: Other (pt with redness and swelling to toes on left foot +heat and erythema, right toes dusky to right foot cool to touch did feel pulse, no open wound compartment soft painful) Skin: No rashes, No breakdown, No significant lesion Neuro: Other (neuro non focal ) Psych/Mental Status: Mental status NL, Mood NL Labs/Xrays I reviewed labs, imaging CT scan abdomen pelvis, EKG and all diagnostic studies on this patient from ED records and the medical chart Chest x-ray shows questionable pneumonia right lobe of the lung and cardiomegaly Ultrasound negative for DVT Labs Test 02/07/24 03:52 02/07/24 02:30 02/07/24 01:01 Range/Units Troponin I High Sensitivity 100 *H </=34 ng/L Lactic Acid Level 2.5 *H 0.4-2.0 mmol/L White Blood Count 8.9 4.4-10.8 10^3/uL Red Blood Count 3.69 L 4.0-5.20 10^6/uL Hemoglobin 12.0 L 12.2-16.2 g/dL Hematocrit 37.1 36.0-46.0 % Mean Corpuscular Volume 100.5 H 80.0-100.0 fL Mean Corpuscular Hemoglobin 32.4 H 28.0-32.0 pg Mean Corpuscular Hemoglobin Concent 32.3 32.0-36.0 g/dL Red Cell Distribution Width 15.2 H 11.8-14.3 % Platelet Count 80 L 140-450 10^3/uL Mean Platelet Volume 10.0 6.9-10.8 fL Neutrophils (%) (Auto) 81.8 H 37.0-80.0 % Lymphocytes (%) (Auto) 11.4 10.0-50.0 % Monocytes (%) (Auto) 5.7 0.0-12.0 % Eosinophils (%) (Auto) 0.5 0.0-7.0 % Basophils (%) (Auto) 0.6 0.0-2.0 % Neutrophils # (Auto) 7.3 1.6-8.6 10 ^3/uL Lymphocytes # (Auto) 1.0 0.4-5.4 10 ^3/uL Monocytes # (Auto) 0.5 0-1.3 10 ^3/uL Eosinophils # (Auto) 0 0-0.8 10 ^3/uL Basophils # (Auto) 0.1 0-0.2 10 ^3/uL Nucleated Red Blood Cells 0.7 % Platelet Estimate Decreased Macrocytosis Slight Sodium Level 140 136-145 mmol/L Potassium Level 3.4 L 3.5-5.1 mmol/L Chloride Level 103 98-107 mmol/L Carbon Dioxide Level 23 20-31 mmol/L Anion Gap 14 5-15 Blood Urea Nitrogen 8 L 9-23 mg/dL Creatinine 0.84 0.550-1.02 mg/dL Glomerular Filtration Rate Calc 88 >90 mL/min BUN/Creatinine Ratio 9.5 L 10.0-20.0 Serum Glucose 293 H 74-106 mg/dL Calcium Level 8.9 8.7-10.4 mg/dL Magnesium Level 1.1 L 1.6-2.6 mg/dL Total Bilirubin 1.3 H 0.2-1.0 mg/dL Aspartate Amino Transferase (AST) 43 H 13-40 U/L Alanine Aminotransferase (ALT) 23 7-40 U/L Alkaline Phosphatase 423 H 46-116 U/L B-Type Natriuretic Peptide 1939.74 0-100 pg/mL Total Protein 6.8 5.7-8.2 g/dL Albumin 3.9 3.2-4.8 g/dL Assessment/Plan Assessment/Plan acute intractable lower ext pain and swelling with some discoloration to right toes coolness r/o vascular issue vs lupus vasculitis negative for dvt ordered aterial study fu results ordered home does of steriods ordered asa for now not able to order lovenox or dvt ppx since pt is thrombocytopenic ordered norco prn pain check pulse qshift and sooner if changes ordered vascular consult fu results elevate leg to help with pain and swelling ordered lasix for now since bnp elevated acute sepsis likely foot infection vs lung lactic elevated normal wbc for now no fever tachycardia ordered vanco and ceftriaxone for now acute left foot cellulitis ordered vanco and ceftriaxone for now since with sepsis Acute on chronic diastolic CHF current bnp elevated ordered lasix for now strict i/o's last echo completed 01/2023 Ef 55% will repeat study ordered cards consult fu results fu bnp acute elevation in trop likely nstemi type 2 in setting of chf and sepsis ekg no stemi ordered asa for now ordered echo fu results ordered cards consult fu results treat for heart failure and infection ordered metoprolol (pt states take dose at home) acute bilateral community acquired pna in right lung found on cxr ordered vanco and ceftriaxone for now acute Cardiomegaly found on cxr ordered echo fu results cards consult fu recs acute SLE flare ordered home dose prednisone ordered morphine and norco prn pain acute Lactic acidosis likley from sepsis from foot vs lungs ordered vanco and ceftriaxone for now T2DM, uncontrolled, no DKA. ordered accucheck ac/hs with sliding scale can order hemoglobin a1c in am acute thrombocytopenia can be from sepsis infection us negative for dvt ordered asa for now monitor for downtrending and bleeding acute Transaminitis, possible congestive hepatopathy from chf monitor acute Liver steatosis outpt follow up with gi acute Hepatomegaly outpt follow up with gi acute hypomagnesium repleted mag fu mag results acute Mild hypokalemia repleted k fu k level fen/ppx diet hl scd protonix plan admit to tele cards consult fu recs Plan discussed with: Patient Date of Service: Feb 07, 2024 Billing Provider: ALANA BLEDSOE DNP Common Visit Codes: [id number] INP/OBS CARE (HIGH) ALANA BLEDSOE DNP Feb 07, 2024 06:37
--- NOTE | 2024-02-07 06:47 | ECG ---
[facility] Test Date: 2024-02-07 Test Time: 02:37:30 Pat Name: LIO MARTIN Department: ED Room: 0278T Gender: F Business Management Manager: ZOHAIB : 1980 Requested By: KRISS POLLOCK Order Number: [id number] Reading MD: Ervin Campuzano Measurements Intervals [place] Rate: 129 P: 48 [place]: 126 QRS: -28 QRSD: 70 T: 1 QT: 355 QTc: 521 Interpretive Statements Sinus tachycardia Borderline left axis deviation Probable anterior infarct, old Borderline T abnormalities, inferior leads Prolonged QT interval Electronically Signed On 02-09-2024 12:43:22 PST by Ervin Campuzano Please click the below link to view image of tracing.
[2024-02-07] MEDS: cefTRIAXone 1GM/50ML D5W 50 ML IV ONE (07:58)
[2024-02-07] MEDS: MAGNESIUM SULFATE 1GM/100ML 100 ML IV ONE (07:58)
[2024-02-07] MEDS ORDERED: DOCUSATE SOD 100 MG CAP PO PRN (08:00)
[2024-02-07] MEDS ORDERED: MORPHINE SULFATE INJ 2 MG/ml SYRG IV PRN (08:00)
[2024-02-07] MEDS ORDERED: NITROGLYCERIN 0.4 MG SL TAB SL PRN (08:00)
[2024-02-07] MEDS ORDERED: ONDANSETRON HCL 4 MG/2 ML VIAL IV PRN (08:00)
[2024-02-07] MEDS: cefTRIAXone 1GM/50ML D5W 50 ML IV SCH (08:37)
[2024-02-07] MEDS ORDERED: VANCOMYCIN PER PHARMACY 0 MG IV SCH (09:00)
[2024-02-07 09:07] LABS: Erythrocyte Sedimentation Rate 46 mm/hr (0-20)
--- NOTE | 2024-02-07 09:27 | DVH ---
Bilateral Lower Extremity Arterial Duplex Clinical History: eval for vascular occlusion Comparison: US BILAT LOW EXT ART DUPLEX on DOS: 02/15/23, US BILAT LOWER DVT on DOS: 02/13/23 Technique: Duplex Doppler evaluation including color Doppler and spectral/pulsed waveform analysis of the lower extremity arteries was performed. Findings: RIGHT: Peak systolic velocities are as follows: CHIEF OPERATOR LOCK TENDER 79 cm/s Deep femoral 67 cm/s SFA proximal 69 cm/s SFA mid-portion 51 cm/s SFA distal 52 cm/s Popliteal 37 cm/s Posterior tibial 61 cm/s Anterior tibial 89 cm/s Peroneal nv cm/s Dorsalis pedis 53 cm/s The waveforms are triphasic with diastolic flow. LEFT: Peak systolic velocities are as follows: CHIEF OPERATOR LOCK TENDER 97 cm/s Deep femoral 46 cm/s SFA proximal 95 cm/s SFA mid-portion 101 cm/s SFA distal 135 cm/s Popliteal 88 cm/s Posterior tibial 88 cm/s Anterior tibial 116 cm/s Peroneal nv cm/s Dorsalis pedis 90 cm/s The waveforms are monophasic with diastolic flow. IMPRESSION: No hemodynamically significant stenosis based on peak systolic velocity criteria. Abnormal monophasic waveforms in the left calf vessels is suggestive of underlying peripheral arteria l disease. REFERENCE VALUES, [facility] ([facility]) vascular Imaging Lab Criteria: Peak systolic velocity ranges (in cm/sec) are as follows: <150 cm/s - <20 % stenosis 150-200 cm/s - 20-49% stenosis 200-300 cm/s - 50-75% stenosis >300 cm/s -> 75% stenosis
[2024-02-07] MEDS ORDERED: predniSONE 20 MG TAB PO SCH (10:00)
[2024-02-07 10:10] VITALS: BP 163/101; PULSE 117; RESP 15; TEMP 97.8; O2SAT 88; O2SAT 92
[2024-02-07 10:41] LABS: Lactic Acid w/Reflex 2.5 mmol/L (0.4-2.0)
[2024-02-07] MEDS: ACCU-CHEK COMFORT CURVE STRIP VI SCH (10:43)
[2024-02-07] MEDS: PANTOPRAZOLE 40 MG TAB PO SCH (10:46)
[2024-02-07] MEDS: POTASSIUM EFFERVESENT TAB 25 MEQ PO ONE (10:46)
[2024-02-07] MEDS: InsuLIN REG 1unit/0.01ml Soln (100units/ml) SC SCH (10:47)
[2024-02-07] MEDS: METOPROLOL TARTRATE 25 MG TAB PO SCH (10:47)
--- NOTE | 2024-02-07 11:04 | DVHINCON2 ---
Date Seen: Feb 07, 2024 Referring Physician RACHID Dodson Reason for Consultation Acute CHF exacerbation History of Present Illness This is a 43-year-old female patient who presents to the emergency room with multiple complaints including pain to bilateral feet, cyanosis to right great toe, and cyanosis to fingers of bilateral hands. She comes to the emergency room for further evaluation. Cardiology has now been consulted for CHF exacerbation. Initial twelve lead electrocardiogram reveals sinus tachycardia with prolonged QTc interval. Initial troponin level of 95ng/L with flat trend thereafter. Initial BNP level of 1939.74pg/mL. Significant past medical history includes congestive heart failure, type 2 diabetes mellitus, systemic lupus erythematosus, and obesity. The patient denies seeing a educational advisor in the outpatient setting but is managed by her primary care doctor and statement clerk within the [facility]. Past Medical History Past medical history reviewed. No other significant than mentioned above. Past Surgical History Cholecystectomy Family History: FH: diabetes mellitus G8 MOTHER G8 FATHER Gout Family History Family history reviewed. Social History Denies the use of tobacco, alcohol or illicit drugs. Allergies: Coded Allergies: NO KNOWN ALLERGIES (Unverified , 12/01/12) Home Meds Active Scripts Acetaminophen (Tylenol 8 Hour Arthritis) 650 Mg Tab, 650 MG PO TID, #30 TAB Prov:MOLINA DUFFY 10/13/22 Prednisone (Prednisone) 20 Mg Tab, 40 MG PO DAILY, #20 MG Prov:MOLINA DUFFY 10/13/22 Reported Medications Hydroxychloroquine Sulfate (PLAQUENIL) 200 Mg Tab, 200 MG PO, TAB 02/07/24 Ferrous Sulfate (Ferosul) 325 Mg Tab, 325 MG PO, TAB 02/07/24 Metoprolol Tartrate (Metoprolol Tartrate) 25 Mg Tab, 25 MG PO, TAB 02/07/24 Prednisone (Prednisone) 5 Mg Tab, 5 MG PO, TAB 02/07/24 Naproxen (NAPROSYN TABLET) 500 Mg Tb, 500 MG PO, TAB 02/07/24 Cephalexin (KEFLEX CAPSULE) 250 Mg Cp, 500 MG PO, CAP 02/07/24 Magnesium Oxide (MAGNESIUM OXIDE) 400 Mg Tab, 1 TAB PO BID, #60 TAB 5 Refills 02/15/23 Cyclobenzaprine HCl (Cyclobenzaprine Hydrochlo) 10 Mg Tab, 1 TAB PO HS 02/15/23 Mupirocin (Pseudomonas Fluores (Mupirocin) 2 % Oin, 1 APPLIC TOP BID 02/15/23 Acetaminophen W/ Codeine (Acetaminophen/Codeine #2) 1 Tab Tab, 1 TAB PO Q6HPRN for pain 02/15/23 Metformin Hydrochloride (Metformin Hcl Er) 500 Mg Tab, 2 TAB PO BID 02/15/23 Cetirizine HCl (Cetirizine Hydrochloride) 10 Mg Tab, 1 TAB PO DAILY 02/15/23 Insulin NPH Isophane & Reg (Hu (Humulin 70/30 Kwikpen (70-30) 100 Unit/ml) 1 Inj Inj, 10 UNITS SC 02/15/23 Omeprazole ([facility]vs Omeprazole Odt) 20 Mg Tab, 40 MG PO DAILY Take 1 tablet by mouth daily 30 minutes before meal 02/15/23 Amlodipine Besylate (Amlodipine Besylate) 5 Mg Tab, 1 TAB PO DAILY 02/15/23 Home Meds Home medications reviewed. Current Medications Current Medications Medications (Trade) Dose Ordered Sig/Alisha Route PRN Reason Start Time Stop Time Status Last Admin Ceftriaxone Sodium 50 ml @ 100 mls/hr DAILY@09 IV 02/07/24 09:00 Diagnostic Test (Pha) (Accu-Chek Comfort Curve T) 1 strip IQ4HR 02/07/24 08:00 Insulin Human Regular (InsuLIN R) IQ4HR SC 02/07/24 08:00 02/07/24 10:47 Dextrose 50 ml UD PRN IV Blood Sugar LESS THAN 60 02/07/24 08:00 Pantoprazole Sodium (Protonix Tablet) 40 mg DAILY PO 02/07/24 10:00 02/07/24 10:46 Prednisone 40 mg DAILY PO 02/07/24 10:00 Hold Acetaminophen/ Hydrocodone Bitart (Herod 5/325MG Tab) 1 tab Q4HP PRN PO MODERATE PAIN (4-6 PAIN SCALE) 02/07/24 08:00 Ondansetron HCl (Zofran) 4 mg Q4HP PRN IV NAUSEA / VOMITING 02/07/24 08:00 Docusate Sodium (Colace Capsule) 100 mg BIDPRN PRN PO FOR CONSTIPATION 02/07/24 08:00 Morphine Sulfate 2 mg Q4HPRN PRN IV SEVERE PAIN (7-10 PAIN SCALE) 02/07/24 08:00 Nitroglycerin (Ntrostat Sublingual) 0.4 mg Q5MINP PRN SL FOR CHEST PAIN 02/07/24 08:00 Aspirin 325 mg DAILY PO 02/08/24 10:00 Furosemide (Lasix Injection) 40 mg BIDD IV 02/07/24 18:00 Vancomycin HCl 0 ml @ 0 mls/hr UD IV 02/07/24 09:00 Metoprolol Tartrate (Lopressor Tablet) 25 mg BID PO 02/07/24 10:00 02/07/24 10:47 Review of Systems Constitutional: No symptom reported Ears, Nose, & Throat: No symptom reported Eyes: No symptom reported Neurological: No symptoms reported Pulmonary/Respiratory: No symptoms reported Cardiovascular: Bilateral hands/finger cyanosis, right great toe cyanosis Gastrointestinal: No symptom reported Genitourinary: No symptom reported Musculoskeletal: No symptom reported Skin: Left great toe wound Psychiatric: No symptom reported Endocrine: No symptom reported Hematologic/Lymphatic: No symptom reported Vital Signs Vital Signs Date Time Temp Pulse Resp B/P (MAP) Pulse Ox O2 Delivery O2 Flow Rate FiO2 02/07/24 10:47 117 163/101 02/07/24 10:10 Room Air* 0 21 02/07/24 07:23 98.7 20 98 98.7 Physical Exam General Appearance: Cooperative. Obese Pulmonary/Respiratory: Diminished bilateral lower lobe sounds. Cardiovascular/Chest: Regular rate and rhythm. Peripheral Pulses: 2+ Radial (R). 2+ Radial (L). 2+ Pedal (L) Abdominal Exam: Normal bowel sounds. Ankle Exam: Negative ankle edema Lower extremities: Left foot edema, erythema. Right foot cyanosis Neuro/Mental Status: A/OX4, coherent. Thoughts/Psych: Normal thought pattern. Appropriate mood and affect. Good judgment and insight. Appearance: No acute distress. Skin Exam: Left great toe open wound. Right great toe cyanosis, cool to touch Labs/Diagnostic Data Labs Test 02/07/24 10:37 02/07/24 09:44 02/07/24 03:52 02/07/24 01:01 Range/Units POC Glucose 201 H 70-106 mg/dl Lactic Acid Level 2.5 *H 0.4-2.0 mmol/L Troponin I High Sensitivity 100 *H </=34 ng/L C-Reactive Protein High Sensitivity 4.82 H <1.0 mg/dL White Blood Count 8.9 4.4-10.8 10^3/uL Red Blood Count 3.69 L 4.0-5.20 10^6/uL Hemoglobin 12.0 L 12.2-16.2 g/dL Hematocrit 37.1 36.0-46.0 % Mean Corpuscular Volume 100.5 H 80.0-100.0 fL Mean Corpuscular Hemoglobin 32.4 H 28.0-32.0 pg Mean Corpuscular Hemoglobin Concent 32.3 32.0-36.0 g/dL Red Cell Distribution Width 15.2 H 11.8-14.3 % Platelet Count 80 L 140-450 10^3/uL Mean Platelet Volume 10.0 6.9-10.8 fL Neutrophils (%) (Auto) 81.8 H 37.0-80.0 % Lymphocytes (%) (Auto) 11.4 10.0-50.0 % Monocytes (%) (Auto) 5.7 0.0-12.0 % Eosinophils (%) (Auto) 0.5 0.0-7.0 % Basophils (%) (Auto) 0.6 0.0-2.0 % Neutrophils # (Auto) 7.3 1.6-8.6 10 ^3/uL Lymphocytes # (Auto) 1.0 0.4-5.4 10 ^3/uL Monocytes # (Auto) 0.5 0-1.3 10 ^3/uL Eosinophils # (Auto) 0 0-0.8 10 ^3/uL Basophils # (Auto) 0.1 0-0.2 10 ^3/uL Nucleated Red Blood Cells 0.7 % Platelet Estimate Decreased Macrocytosis Slight Erythrocyte Sedimentation Rate 46 H 0-20 mm/hr Sodium Level 140 136-145 mmol/L Potassium Level 3.4 L 3.5-5.1 mmol/L Chloride Level 103 98-107 mmol/L Carbon Dioxide Level 23 20-31 mmol/L Anion Gap 14 5-15 Blood Urea Nitrogen 8 L 9-23 mg/dL Creatinine 0.84 0.550-1.02 mg/dL Glomerular Filtration Rate Calc 88 >90 mL/min BUN/Creatinine Ratio 9.5 L 10.0-20.0 Serum Glucose 293 H 74-106 mg/dL Calcium Level 8.9 8.7-10.4 mg/dL Magnesium Level 1.1 L 1.6-2.6 mg/dL Total Bilirubin 1.3 H 0.2-1.0 mg/dL Aspartate Amino Transferase (AST) 43 H 13-40 U/L Alanine Aminotransferase (ALT) 23 7-40 U/L Alkaline Phosphatase 423 H 46-116 U/L B-Type Natriuretic Peptide 1939.74 0-100 pg/mL Total Protein 6.8 5.7-8.2 g/dL Albumin 3.9 3.2-4.8 g/dL Assessment Systemic lupus erythematosus flare-up, likely vasculitis Hypertensive urgency Sepsis NSTEMI type II secondary to above Rule out structural heart disease Type II diabetes mellitus Thrombocytopenia Hypomagnesemia Obesity Plan/Recommendation We will continue with the following plan/recommendations (Dr. Brady): * Echocardiogram to evaluate cardiac function * Aggressive BP control * Strict intake and output, daily weights, maintain fluid restriction * Monitor and replete electrolytes as needed * Antibiotics per primary care team Patient seen and examined at bedside with . We will recommend for the patient to be seen by statement clerk for further management of SLE including reinitiating her medications. Thank you for allowing us to care for this patient. Please call with any questions or concerns. Critical care time spent: 44 minutes This medical document was created using an electronic medical record system with voice recognition software and computerized dictation system. Although this document has been carefully reviewed, there might still be some phonetic and typographical errors. Occasional wrong-word or ``sound-alike substitutions may have occurred due to the inherent limitations of voice recognition software. These areas are purely typographical due to imperfections of the software programs and do not reflect any compromise in the patient's medical care. Please read the chart carefully and recognize, using context, where these substitutions have occurred. Plan discussed with: Patient Date of Service: Feb 07, 2024 Billing Provider: SHANNAN BRADY MD Cardiology Common Codes: [id number] INP/OBS CARE (High) Cardiology Consultation Codes: [id number] CONSULT <45MIN ELIANA CALVERT Feb 07, 2024 11:04
[2024-02-07] MEDS: VANCOMYCIN 1.5GM/300ML 300 ML IV ONE (11:33)
[2024-02-07 13:00] VITALS: BP 168/109; PULSE 117; RESP 20; TEMP 98.2; O2SAT 100
--- NOTE | 2024-02-07 13:11 | DVHINCON2 ---
Date Seen: Feb 07, 2024 Reason for Consultation Left foot wound History of Present Illness 43-year-old female past medical history diabetes lupus CHF transaminitis surgical history gallbladder surgery chief complaint patient states that she has been having some issues with the foot he has been going on since Monday she went to [facility] saw Podiatry and they referred her to vascular vascular did a virtual assessment in had an appointment set up for her this coming Monday to see her in person but patient states yesterday the pain was so severe in his swelling got worse to her lower extremities so she came to the ER for evaluation she states her toes feel cold in the not able to sleep because of the pain. Patient does state she had some lupus. She has been taking her medications as prescribed. She does see getter operator at [facility] also. She denies any chest pain no shortness with the breath. When evaluating patient's labs and imaging looks like ceftriaxone was given aspirin Lasix Mag hemoglobin was 12.0 platelet count was [address]77 lactate was 2.5 ultrasound was completed negative for DVT chest x-ray shows enlarged heart questionable pneumonia in the right lower lobe potassium was low at 3.4 glucose was elevated at 293 Mag was low at 1.1 total bili is 1.3 AST was 43 alkaline phosphatase 423 BNP was elevated at 1939, troponins were slightly elevated x3. When evaluating patient's chart patient was found to have an echocardiogram completed April 06, 2022 EF was 55% at that time With these findings we will admit patient we will ask for vascular consult Cardiology consult and Podiatry consult. Past Medical History See H&P Past Surgical History See H&P Family History: FH: diabetes mellitus G8 FATHER Gout Allergies: Coded Allergies: NO KNOWN ALLERGIES (Unverified , 12/01/12) Home Meds Active Scripts Acetaminophen (Tylenol 8 Hour Arthritis) 650 Mg Tab, 650 MG PO TID, #30 TAB Prov:MOLINA DUFFY 10/13/22 Prednisone (Prednisone) 20 Mg Tab, 40 MG PO DAILY, #20 MG Prov:MOLINA DUFFY 10/13/22 Reported Medications Hydroxychloroquine Sulfate (PLAQUENIL) 200 Mg Tab, 200 MG PO, TAB 02/07/24 Ferrous Sulfate (Ferosul) 325 Mg Tab, 325 MG PO, TAB 02/07/24 Metoprolol Tartrate (Metoprolol Tartrate) 25 Mg Tab, 25 MG PO, TAB 02/07/24 Prednisone (Prednisone) 5 Mg Tab, 5 MG PO, TAB 02/07/24 Naproxen (NAPROSYN TABLET) 500 Mg Tb, 500 MG PO, TAB 02/07/24 Cephalexin (KEFLEX CAPSULE) 250 Mg Cp, 500 MG PO, CAP 02/07/24 Magnesium Oxide (MAGNESIUM OXIDE) 400 Mg Tab, 1 TAB PO BID, #60 TAB 5 Refills 02/15/23 Cyclobenzaprine HCl (Cyclobenzaprine Hydrochlo) 10 Mg Tab, 1 TAB PO HS 02/15/23 Mupirocin (Pseudomonas Fluores (Mupirocin) 2 % Oin, 1 APPLIC TOP BID 02/15/23 Acetaminophen W/ Codeine (Acetaminophen/Codeine #2) 1 Tab Tab, 1 TAB PO Q6HPRN for pain 02/15/23 Metformin Hydrochloride (Metformin Hcl Er) 500 Mg Tab, 2 TAB PO BID 02/15/23 Cetirizine HCl (Cetirizine Hydrochloride) 10 Mg Tab, 1 TAB PO DAILY 02/15/23 Insulin NPH Isophane & Reg (Hu (Humulin 70/30 Kwikpen (70-30) 100 Unit/ml) 1 Inj Inj, 10 UNITS SC 02/15/23 Omeprazole (Cvs Omeprazole Odt) 20 Mg Tab, 40 MG PO DAILY Take 1 tablet by mouth daily 30 minutes before meal 02/15/23 Amlodipine Besylate (Amlodipine Besylate) 5 Mg Tab, 1 TAB PO DAILY 02/15/23 Current Medications Current Medications Medications (Trade) Dose Ordered Sig/Alisha Route PRN Reason Start Time Stop Time Status Last Admin Ceftriaxone Sodium 50 ml @ 100 mls/hr DAILY@09 IV 02/07/24 09:00 Diagnostic Test (Pha) (Accu-Chek Comfort Curve T) 1 strip IQ4HR 02/07/24 08:00 Insulin Human Regular (InsuLIN R) IQ4HR SC 02/07/24 08:00 02/07/24 10:47 Dextrose 50 ml UD PRN IV Blood Sugar LESS THAN 60 02/07/24 08:00 Pantoprazole Sodium (Protonix Tablet) 40 mg DAILY PO 02/07/24 10:00 02/07/24 10:46 Prednisone 40 mg DAILY PO 02/07/24 10:00 Hold Acetaminophen/ Hydrocodone Bitart (Mars 5/325MG Tab) 1 tab Q4HP PRN PO MODERATE PAIN (4-6 PAIN SCALE) 02/07/24 08:00 Ondansetron HCl (Zofran) 4 mg Q4HP PRN IV NAUSEA / VOMITING 02/07/24 08:00 Docusate Sodium (Colace Capsule) 100 mg BIDPRN PRN PO FOR CONSTIPATION 02/07/24 08:00 Morphine Sulfate 2 mg Q4HPRN PRN IV SEVERE PAIN (7-10 PAIN SCALE) 02/07/24 08:00 Nitroglycerin (Ntrostat Sublingual) 0.4 mg Q5MINP PRN SL FOR CHEST PAIN 02/07/24 08:00 Aspirin 325 mg DAILY PO 02/08/24 10:00 Furosemide (Lasix Injection) 40 mg BIDD IV 02/07/24 18:00 Vancomycin HCl 0 ml @ 0 mls/hr UD IV 02/07/24 09:00 Metoprolol Tartrate (Lopressor Tablet) 25 mg BID PO 02/07/24 10:00 02/07/24 10:47 Vital Signs Vital Signs Date Time Temp Pulse Resp B/P (MAP) Pulse Ox O2 Delivery O2 Flow Rate FiO2 02/07/24 11:47 117 168/109 02/07/24 10:10 97.8 15 92 97.8 02/07/24 10:10 Room Air* 0 21 Physical Exam DERMATOLOGIC EXAM: - Skin is dry and cool to the touch dry bilaterally. - Nails 1-5 of the bilateral foot are thickened, discolored, dystrophic, and tender to palpate with subungual debris - Hair loss noted to bilateral feet Wound #1: Location: Left medial hallux Measurements: Length on cm x width 1 cm x depth 0.5 cm. Wound margins: Hyperkeratotic. Wound base: Full thickness. General Appearance: Necrotic Probes to Bone: No Purulent drainage: No Serous drainage: No Erythema: Digit VASCULAR EXAM: - DP and PT pulses are palpable bilaterally. 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 - Feet are cool to touch compared to lower legs bilaterally. NEUROLOGIC EXAM: - Normal light touch sensation to the superficial peroneal, deep peroneal, s ural, saphenous, and tibial nerve branches. - Protective sensation is diminished as tested with a 5.07 10g Post-Layne bilaterally. MUSCULOSKELETAL EXAM: - No gross deformities - Muscle strength is 5/5 and active motion is pain-free and symmetrical b ilaterally - No pain or crepitation with passive range of motion bilaterally to all major pedal joints Labs/Diagnostic Data Labs Test 02/07/24 10:37 02/07/24 09:44 02/07/24 03:52 02/07/24 01:01 Range/Units POC Glucose 201 H 70-106 mg/dl Lactic Acid Level 2.5 *H 0.4-2.0 mmol/L Troponin I High Sensitivity 100 *H </=34 ng/L C-Reactive Protein High Sensitivity 4.82 H <1.0 mg/dL White Blood Count 8.9 4.4-10.8 10^3/uL Red Blood Count 3.69 L 4.0-5.20 10^6/uL Hemoglobin 12.0 L 12.2-16.2 g/dL Hematocrit 37.1 36.0-46.0 % Mean Corpuscular Volume 100.5 H 80.0-100.0 fL Mean Corpuscular Hemoglobin 32.4 H 28.0-32.0 pg Mean Corpuscular Hemoglobin Concent 32.3 32.0-36.0 g/dL Red Cell Distribution Width 15.2 H 11.8-14.3 % Platelet Count 80 L 140-450 10^3/uL Mean Platelet Volume 10.0 6.9-10.8 fL Neutrophils (%) (Auto) 81.8 H 37.0-80.0 % Lymphocytes (%) (Auto) 11.4 10.0-50.0 % Monocytes (%) (Auto) 5.7 0.0-12.0 % Eosinophils (%) (Auto) 0.5 0.0-7.0 % Basophils (%) (Auto) 0.6 0.0-2.0 % Neutrophils # (Auto) 7.3 1.6-8.6 10 ^3/uL Lymphocytes # (Auto) 1.0 0.4-5.4 10 ^3/uL Monocytes # (Auto) 0.5 0-1.3 10 ^3/uL Eosinophils # (Auto) 0 0-0.8 10 ^3/uL Basophils # (Auto) 0.1 0-0.2 10 ^3/uL Nucleated Red Blood Cells 0.7 % Platelet Estimate Decreased Macrocytosis Slight Erythrocyte Sedimentation Rate 46 H 0-20 mm/hr Sodium Level 140 136-145 mmol/L Potassium Level 3.4 L 3.5-5.1 mmol/L Chloride Level 103 98-107 mmol/L Carbon Dioxide Level 23 20-31 mmol/L Anion Gap 14 5-15 Blood Urea Nitrogen 8 L 9-23 mg/dL Creatinine 0.84 0.550-1.02 mg/dL Glomerular Filtration Rate Calc 88 >90 mL/min BUN/Creatinine Ratio 9.5 L 10.0-20.0 Serum Glucose 293 H 74-106 mg/dL Calcium Level 8.9 8.7-10.4 mg/dL Magnesium Level 1.1 L 1.6-2.6 mg/dL Total Bilirubin 1.3 H 0.2-1.0 mg/dL Aspartate Amino Transferase (AST) 43 H 13-40 U/L Alanine Aminotransferase (ALT) 23 7-40 U/L Alkaline Phosphatase 423 H 46-116 U/L B-Type Natriuretic Peptide 1939.74 0-100 pg/mL Total Protein 6.8 5.7-8.2 g/dL Albumin 3.9 3.2-4.8 g/dL Problems(with codes): (1) Left hand pain (2) History of lupus (3) DKA (diabetic ketoacidosis) (4) Hyperglycemia (5) Pancreatitis (6) Demand ischemia (7) Migraine (8) Thrombocytopenia (9) Sinus tachycardia (10) Hypomagnesemia (11) Hypertension (12) Leg swelling (13) Elevated troponin (14) Elevated brain natriuretic peptide (BNP) level Plan/Recommendation ASSESSMENT: Patient is a 43 year old who was seen on the floor for a left hallux eschar PLAN: - The patients chart was reviewed, clinical findings were discussed with the patient, the etiologies of the conditions were discussed in detail, and a treatment plan was agreed to at this time, with both oral and written instructions provided. - discussed with the patient that the wound itself appears superficial - discussed that there is some erythema around it which will resolve with antibiotics - no surgical indication at this point - dress with Betadine gauze - keep the wound dry and dressings clean and intact All questions were answered and concerns addressed to the patient's satisfaction. The patient was given the phone number to the clinic and was told how to make contact with the clinic should any concerns or questions arise. Patient understands that if any questions or concerns arise prior to the next appointment, we should be contacted immediately. FOLLOW-UP: Patient will follow up with me in 1 week for continued wound care Plan discussed with: Patient Date of Service: Feb 07, 2024 Billing Provider: ZENY QUINTANILLA DPM Common Visit Codes: [id number] INP/OBS CARE (MOD) ZENY QUINTANILLA DPM Feb 07, 2024 13:11
[2024-02-07] MEDS: cloNIDine HCL 0.1 MG TAB PO ONE (13:22)
[2024-02-07 17:00] VITALS: BP 96/73; PULSE 102; RESP 17; TEMP 98; O2SAT 96
--- NOTE | 2024-02-07 17:03 | DVHSR ---
APPROVED REPORT EXAM: Two-dimensional and M-mode echocardiogram with Doppler and color Doppler. Blood Pressure: 143/86 mmHg INDICATION Evaluate cardiac function RISK FACTORS Height: 5'1", Weight: 172 DIMENSIONS LVDd4.2 (3.8-5.7cm)LA (2D)4.4 (1.9-4.0cm)Aortic Root2.9 (2.0-3.7cm) LVDs4.0 (2.5-4.0cm)LA (MM) (1.9-4.0cm)Aortic Cusp Exc1.7 (1.5-2.0cm) EF (%) 12.0 (55-70%)Rt. Atrium4.0 (1.9-4.0cm)Asc. Aorta2.4 cm IVSd0.7 (0.7-1.1cm)RV (D)3.9 (1.8-2.4cm) PWd1.3 (0.7-1.1cm) Mitral Valve MitralMitral Stenosis E wave1.22m/sMV Mean GR.mmHg A wave0.48m/sMV Peak GR.mmHg E/A ratio2.52D MVAcm2 DECEL [id number] 1/2 Timems Aortic Valve Aortic ValveAortic Stenosis V10.76m/Julia Mean GR.4mmHg V21.24m/Julia Peak GR.6mmHg LVOT Diameter1.7 (1.8-2.4cm)Doppler AVA1.39cm2 AI P 1/2 Emtd373.10ms Pulmonic Valve V20.72m/s Tricuspid Valve TR Velocity2.42m/s [id number] Conclusion Severely dilated left ventricle. Severely reduced left ventricular systolic function with estimated ejection fraction of 15%. There is a grade diastolic dysfunction. Severely dilated right ventricle. Severely reduced right ventricular systolic function. Estimated r ight ventricular systolic mm of mercury. Borderline dilated right and left atria. Normal aortic valve structure and function. There is mild mitral valve regurgitation. There is mild tricuspid valve regurgitation. The pulmonary valve is grossly normal. No pericardial effusion.
[2024-02-07] MEDS ORDERED: hydrALAZINE HCL 20 MG/ML VL IV PRN (18:00)
[2024-02-07] MEDS: FUROSEMIDE 40 MG/4 ML VIAL IV SCH (18:49)
[2024-02-07 20:00] VITALS: PULSE 102; PULSE 109; RESP 20; O2SAT 97
[2024-02-07 21:00] VITALS: BP 105/77; PULSE 109; RESP 20; TEMP 98.4; O2SAT 97
[2024-02-07] MEDS: VANCOMYCIN 1GM/250ML KIT 250 ML IV SCH (23:12)
[2024-02-08] VITALS (10 sets, daily range): BP systolic 113–158; BP diastolic 73–98; PULSE 70–123; RESP 16–20; TEMP 97.7–101.4; O2SAT 85–99
[2024-02-08] MEDS: DEXTROSE (50%) 50ML SYRG IV PRN (00:13)
[2024-02-08] MEDS: HYDROcodone-ACET 5/325MG TAB PO PRN (02:34)
[2024-02-08] MEDS: DEXTROSE 10% 1,000 ML IV ONE ×2 (04:01→05:06)
[2024-02-08 07:04] LABS: Urine Bacteria None Seen /hpf (None Seen)
[2024-02-08 07:44] LABS: Urine Blood TRACE /uL (Negative); Urine Clarity Clear (Clear); Urine Color Yellow (Yellow); Urine Hyaline Cast FEW /lpf (0 - 2); Urine Protein, UAD 1+ (Negative); Urine Specific Gravity 1.022 (1.001-1.035); Urine Urobilinogen 3 mg/dL (Negative); Urine WBC 11 /hpf (0 - 5)
[2024-02-08] MEDS: VALSARTAN 80 MG TAB PO SCH (08:06)
[2024-02-08 09:07] LABS: Eosinophils # (auto) 0.1 10 ^3/uL (0-0.8); Monocytes # (auto) 0.5 10 ^3/uL (0-1.3); White Blood Cell 7.7 10^3/uL (4.4-10.8)
[2024-02-08 09:09] LABS: Basophils # (auto) 0 10 ^3/uL (0-0.2); Basophils % (auto) 0.6 % (0.0-2.0); Eosinophils % (auto) 1.3 % (0.0-7.0); Hematocrit 36.9 % (36.0-46.0); Hemoglobin 11.8 g/dL (12.2-16.2); Lymphocytes # (auto) 0.7 10 ^3/uL (0.4-5.4); Lymphocytes % (auto) 9.2 % (10.0-50.0); Mean Corpuscular Hemoglobin 32.9 pg (28.0-32.0); Mean Corpuscular Hgb Conc. 31.9 g/dL (32.0-36.0); Mean Corpuscular Volume 103.2 fL (80.0-100.0); Monocytes % (auto) 6.3 % (0.0-12.0); Neutrophils # (auto) 6.4 10 ^3/uL (1.6-8.6); Neutrophils % (auto) 82.6 % (37.0-80.0); Nucleated Red Blood Cells % 0.5 %; Platelet Count (auto) 71 10^3/uL (140-450); Red Blood Cells 3.58 10^6/uL (4.0-5.20); Red Cell Distribution Width 15.3 % (11.8-14.3)
[2024-02-08] MEDS ORDERED: ASPirin 325 MG TAB PO SCH (10:00)
--- NOTE | 2024-02-08 10:16 | DVHPN2 ---
Consult Progress Note Subjective Other Systems: Patient denies any cardiac symptoms at time of assessment. Objective vital signs Vital Sign Date Time Temp Pulse Resp B/P (MAP) Pulse Ox O2 Delivery O2 Flow Rate FiO2 02/08/24 08:06 158/98 02/08/24 08:06 114 02/08/24 07:30 16 Room Air* 0 21 02/08/24 05:00 98.3 98 98.3 Total Intake and Output 02/07/24 02/07/24 02/08/24 15:00 23:00 07:00 Intake Total 575 ml 615 ml Output Total 0 ml Balance 575 ml 615 ml medications Current Medications Medications Dose Ordered Sig/Alisha Route Start Time Stop Time Status Last Admin Dose Admin Ceftriaxone Sodium 50 ml @ 100 mls/hr DAILY@09 IV 02/07/24 09:00 02/08/24 08:05 100 MLS/HR Diagnostic Test (Pha) 1 strip IQ4HR 02/07/24 08:00 02/08/24 08:05 1 STRIP Insulin Human Regular IQ4HR SC 02/07/24 08:00 02/07/24 20:21 6 UNITS Dextrose 50 ml UD PRN IV 02/07/24 08:00 02/08/24 00:13 50 ML Pantoprazole Sodium 40 mg DAILY PO 02/07/24 10:00 02/08/24 08:06 40 MG Prednisone 40 mg DAILY PO 02/07/24 10:00 Hold Acetaminophen/ Hydrocodone Bitart 1 tab Q4HP PRN PO 02/07/24 08:00 02/08/24 02:34 1 TAB Ondansetron HCl 4 mg Q4HP PRN IV 02/07/24 08:00 Docusate Sodium 100 mg BIDPRN PRN PO 02/07/24 08:00 Morphine Sulfate 2 mg Q4HPRN PRN IV 02/07/24 08:00 Nitroglycerin 0.4 mg Q5MINP PRN SL 02/07/24 08:00 Furosemide 40 mg BIDD IV 02/07/24 18:00 02/07/24 18:49 40 MG Vancomycin HCl 0 ml @ 0 mls/hr UD IV 02/07/24 09:00 Metoprolol Tartrate 25 mg BID PO 02/07/24 10:00 02/08/24 08:06 25 MG Valsartan 80 mg DAILY PO 02/08/24 10:00 02/08/24 08:06 80 MG Hydralazine HCl 10 mg Q6HP PRN IV 02/07/24 18:00 Vancomycin HCl 250 ml @ 250 mls/hr Q12H IV 02/07/24 23:00 02/07/24 23:12 250 MLS/HR Examination: GENERAL:Normal, LUNGS:Normal, CVS:Normal, NEURO:Normal laboratory and microbiology Laboratory Tests 02/08/24 08:52 Test 02/08/24 08:52 Range/Units Serum Glucose Pending Problem List/Assessment/Plan Problem List/Assessment/Plan NSTEMI, rule out coronary artery disease Acute on chronic decompensated HFrEF, NYHA class III, newly diagnosed Systemic lupus erythematosus flare-up, likely vasculitis Hypertensive urgency ?Sepsis Type II diabetes mellitus Thrombocytopenia Hypomagnesemia Obesity Plan/Recommendation (Dr. Brady): * Echocardiogram reveals EF 115% * Initiate guideline directed medical therapy for CHF as tolerated * Aggressive BP control * Strict intake and output, daily weights, maintain fluid restriction * Monitor and replete electrolytes as needed * Antibiotics per primary care team Patient seen and examined at bedside with . Given new onset HFrEF, the patient will need ischemic workup in the future. At this time, patient has thrombocytopenia and possible lupus flare. For the time being, we will continue with medical management. Patient pending transfer to [facility] for further management. Thank you for allowing us to care for this patient. Please call with any questions or concerns. This medical document was created using an electronic medical record system with voice recognition software and computerized dictation system. Although this document has been carefully reviewed, there might still be some phonetic and typographical errors. Occasional wrong-word or ``sound-alike substitutions may have occurred due to the inherent limitations of voice recognition software. These areas are purely typographical due to imperfections of the software programs and do not reflect any compromise in the patient's medical care. Please read the chart carefully and recognize, using context, where these substitutions have occurred. Plan discussed with: Patient Date of Service: Feb 08, 2024 Billing Provider: SHANNAN BRADY MD Common Visit Codes: [id number] INP/OBS CARE(HIGH) ELIANA CALVERT RECEIVER Feb 08, 2024 10:16
[2024-02-08 11:38] LABS: Chloride 104 mmol/L (98-107)
[2024-02-08 11:41] LABS: Anion Gap 9 (5-15)
[2024-02-08 11:48] LABS: Albumin 3.3 g/dL (3.2-4.8); Aspartate Aminotransferase 33 U/L (13-40); Total Protein 6.2 g/dL (5.7-8.2)
[2024-02-08 11:54] LABS: Alanine Aminotransferase 18 U/L (7-40); Alkaline Phosphatase 365 U/L (46-116); BUN/Creatinine Ratio 9.9 (10.0-20.0); Bilirubin, Total 1.1 mg/dL (0.2-1.0); Blood Urea Nitrogen 9 mg/dL (9-23); Calcium 8.2 mg/dL (8.7-10.4); Carbon Dioxide 19 mmol/L (20-31); Glucose 236 mg/dL (74-106); Magnesium 1.4 mg/dL (1.6-2.6); Potassium 4.5 mmol/L (3.5-5.1); Sodium 132 mmol/L (136-145)
--- NOTE | 2024-02-08 13:53 | DVHDS2 ---
Discharge Summary Date of Admission Feb 07, 2024 at 07:52 Date of Discharge: Feb 08, 2024 Labs/Diagnostic Data: Laboratory Results Test 02/08/24 10:36 02/08/24 08:52 02/08/24 07:50 02/07/24 09:44 Sodium Level 132 mmol/L (136-145) Potassium Level 4.5 mmol/L (3.5-5.1) Chloride Level 104 mmol/L (98-107) Carbon Dioxide Level 19 mmol/L (20-31) Anion Gap 9 (5-15) Blood Urea Nitrogen 9 mg/dL (9-23) Creatinine 0.91 mg/dL (0.550-1.02) Glomerular Filtration Rate Calc 80 mL/min (>90) BUN/Creatinine Ratio 9.9 (10.0-20.0) Serum Glucose 236 mg/dL (74-106) Calcium Level 8.2 mg/dL (8.7-10.4) Magnesium Level 1.4 mg/dL (1.6-2.6) Total Bilirubin 1.1 mg/dL (0.2-1.0) Aspartate Amino Transferase (AST) 33 U/L (13-40) Alanine Aminotransferase (ALT) 18 U/L (7-40) Alkaline Phosphatase 365 U/L (46-116) Total Protein 6.2 g/dL (5.7-8.2) Albumin 3.3 g/dL (3.2-4.8) White Blood Count 7.7 10^3/uL (4.4-10.8) Red Blood Count 3.58 10^6/uL (4.0-5.20) Hemoglobin 11.8 g/dL (12.2-16.2) Hematocrit 36.9 % (36.0-46.0) Mean Corpuscular Volume 103.2 fL (80.0-100.0) Mean Corpuscular Hemoglobin 32.9 pg (28.0-32.0) Mean Corpuscular Hemoglobin Concent 31.9 g/dL (32.0-36.0) Red Cell Distribution Width 15.3 % (11.8-14.3) Platelet Count 71 10^3/uL (140-450) Mean Platelet Volume 10.3 fL (6.9-10.8) Neutrophils (%) (Auto) 82.6 % (37.0-80.0) Lymphocytes (%) (Auto) 9.2 % (10.0-50.0) Monocytes (%) (Auto) 6.3 % (0.0-12.0) Eosinophils (%) (Auto) 1.3 % (0.0-7.0) Basophils (%) (Auto) 0.6 % (0.0-2.0) Neutrophils # (Auto) 6.4 10 ^3/uL (1.6-8.6) Lymphocytes # (Auto) 0.7 10 ^3/uL (0.4-5.4) Monocytes # (Auto) 0.5 10 ^3/uL (0-1.3) Eosinophils # (Auto) 0.1 10 ^3/uL (0-0.8) Basophils # (Auto) 0 10 ^3/uL (0-0.2) Nucleated Red Blood Cells 0.5 % POC Glucose 129 mg/dl (70-106) Lactic Acid Level 2.5 mmol/L (0.4-2.0) Test 02/07/24 06:00 02/07/24 03:52 02/07/24 01:01 Urine Color Yellow (Yellow) Urine Clarity Clear (Clear) Urine pH 6.0 (5.0-9.0) Urine Specific [place] 1.022 (1.001-1.035) Urine Protein 1+ (Negative) Urine Ketones Negative (Negative) Urine Blood Trace /uL (Negative) Urine Nitrite Negative (Negative) Urine Bilirubin Negative (Negative) Urine Urobilinogen 3 mg/dL (Negative) Urine Leukocyte Esterase 1+ /uL (Negative) Urine RBC 4 /hpf (0 - 4) Urine WBC 11 /hpf (0 - 5) Urine Squamous Epithelial Cells Few /hpf (<5) Urine Bacteria None seen /hpf (None Seen) Urine Hyaline Casts Few /lpf (0 - 2) Urine Glucose 1+ mg/dL (Normal) Troponin I High Sensitivity 100 ng/L (</=34) C-Reactive Protein High Sensitivity 4.82 mg/dL (<1.0) Platelet Estimate Decreased Macrocytosis Slight Erythrocyte Sedimentation Rate 46 mm/hr (0-20) B-Type Natriuretic Peptide 1939.74 pg/mL (0-100) Other Laboratory Tests 02/08/24 10:36 02/08/24 08:52 Brief Hx & Hospital Course: 43 F admitted for left foot wound, found to be tachycardic and hypertensive, echo done with new onset HFrEF, seen by podiatry. Patient will need ischemic workup, however with thrombocytopenia and possible lupus flare, woud need to be seen by rheumatology. Patient follows in [place], transfer for continuity of care. covered with vanc and ceft, IVF deferred, started on GDMT. Condition at Discharge: Stable Final Diagnosis/Problems List acute on chronic systolic heart failure exacerbation of heart failure with decreased EF SLE with flare? Discharge Disposition: Acute Care Facility 55 Discharge Statement: "Patient was advised to return to the ER or call 911 if any headaches, dizziness, shortness of breath, chest pain, abdominal pain, bleeding, fevers, or worsening of medical condition. Patient was counseled about treatment plan, medications, possible side effects, patientverbalized understanding. All questions were answered to the best of my ability. This discharge took greater then 30 minutes in planning, reviewing documentation, counseling the patient, and discussing with other team members." ASSESSMENT ASSESSMENT Assessment acute on chronic systolic heart failure exacerbation of heart failure with decreased EF SLE with flare? sepsis? L hallux eschar doubt cellulitis uncontrolled T2DM thrombocytopenia transaminitis hypokalemia Date of Service: Feb 08, 2024 Billing Provider: ZEESHAN LUJAN MD Common Visit Codes: 34360-CPK/OBS DISCH DAY >30min ZEESHAN LUJAN MD Feb 08, 2024 13:53
[2024-02-09] MEDS ORDERED: SPIRONOLACTONE 25 MG TAB PO SCH (10:00)
[2024-02-09] MEDS ORDERED: EMPAGLIFLOZIN 10 MG TAB PO SCH (10:00)
[2024-02-09] MEDS ORDERED: METOPROLOL SUCCINATE XL 50 MG TAB PO SCH (10:00)
== END 2024-02-08 22:00 | disposition short-term general hospital (02) | DRG 139 ==
LOC: ER 00:10 → OVERFLOW 07:52 → TELE 08:46 → TELE-WESTW 10:02
PROVIDERS: ADMIT Nurse Practitioner Family; ATTEND Student in an Organized Health Care Education/Training Program
DX: J15.9 Unspecified bacterial pneumonia (principal); I21.A1 Myocardial infarction type 2; I50.23 Acute on chronic systolic (congestive) heart failure; E87.21 Acute metabolic acidosis; D69.6 Thrombocytopenia, unspecified; L03.116 Cellulitis of left lower limb; I11.0 Hypertensive heart disease with heart failure; J15.69 Pneumonia due to other Gram-negative bacteria; J18.9 Pneumonia, unspecified organism; E11.9 Type 2 diabetes mellitus without complications; K76.0 Fatty (change of) liver, not elsewhere classified; R16.0 Hepatomegaly, not elsewhere classified; M32.9 Systemic lupus erythematosus, unspecified; R74.01 Elevation of levels of liver transaminase levels; E66.9 Obesity, unspecified; E87.6 Hypokalemia; I16.0 Hypertensive urgency; E83.42 Hypomagnesemia; Z83.3 Family history of diabetes mellitus; Z79.1 Long term (current) use of non-steroidal anti-inflammatories (NSAID); Z79.899 Other long term (current) drug therapy; Z79.4 Long term (current) use of insulin; Z68.32 Body mass index [BMI] 32.0-32.9, adult
CPT/HCPCS: 36415; 71045; 80053; 81001; 82962; 83605; 83735; 83880; 84484; 85025; 85652; 86141; 93005; 93306; 93925; 93970; 96365; 96368; G0378; J1815

== ENCOUNTER 2024-05-18 20:38 | Emergency (ER) | payer MEDICAID ==
[~2024-05-18] VITALS: Ht 154.9 cm; Wt 76.3 kg
[~2024-05-18 20:38] MED LIST changes: -PRED20TA2 PO
--- NOTE | 2024-05-18 21:50 | ED.PDOC ---
History of present illness HPI Comments 44-year-old female came to ER due to hyperglycemia. Patient does have history of diabetes, lupus and CHF. Was recently discharged from [place] due to uncontrolled blood sugar levels. Patient states her blood sugar levels at home still remains high despite new medications. ([phone]) Patient denies having any signs and symptoms. Blood sugar upon arrival was 342 Chief Complaint: Hyperglycemia Time Seen by MD: 21:49 Primary Care Provider: [place] History of present illness: Nurses Notes Allergies: Coded Allergies: NO KNOWN ALLERGIES (Unverified , 12/01/12) Home Meds Active Scripts Acetaminophen (Tylenol 8 Hour Arthritis) 650 Mg Tab, 650 MG PO TID, #30 TAB Prov:MOLINA DUFFY PA 10/13/22 Reported Medications Hydroxychloroquine Sulfate (PLAQUENIL) 200 Mg Tab, 1 TAB PO DAILY for 100 Days 02/07/24 Ferrous Sulfate (Ferosul) 325 Mg Tab, 325 MG PO for 50 Days, #100 02/07/24 Metoprolol Tartrate (Metoprolol Tartrate) 25 Mg Tab, 1 TAB PO BID for 100 Days 02/07/24 Prednisone (Prednisone) 5 Mg Tab, TAB PO UD for 33 Days, #100 02/07/24 Naproxen (NAPROSYN TABLET) 500 Mg Tb, 1 TAB PO BID for 15 Days, #30 02/07/24 Cephalexin (KEFLEX CAPSULE) 250 Mg Cp, 1 CAP PO TID for 10 Days, #30 02/07/24 Magnesium Oxide (MAGNESIUM OXIDE) 400 Mg Tab, 2 TAB PO BID for 25 Days, #100 02/15/23 Cyclobenzaprine HCl (Cyclobenzaprine Hydrochlo) 10 Mg Tab, 1 TAB PO BID for 50 Days, #100 02/15/23 Mupirocin (Pseudomonas Fluores (Mupirocin) 2 % Oin, 1 APPLIC TOP BID 02/15/23 Acetaminophen W/ Codeine (Acetaminophen/Codeine #2) 1 Tab Tab, 1 TAB PO Q6HPRN for pain 02/15/23 Metformin Hydrochloride (Metformin Hcl Er) 500 Mg Tab, 2 TAB PO BID 02/15/23 Cetirizine HCl (Cetirizine Hydrochloride) 10 Mg Tab, 1 TAB PO DAILY 02/15/23 Insulin NPH Isophane & Reg (Hu (Humulin 70/30 Kwikpen (70-30) 100 Unit/ml) 1 Inj Inj, 10 UNITS SC 02/15/23 Omeprazole ([facility] Omeprazole Odt) 20 Mg Tab, 40 MG PO DAILY Take 1 tablet by mouth daily 30 minutes before meal 02/15/23 Amlodipine Besylate (Amlodipine Besylate) 5 Mg Tab, 1 TAB PO DAILY 02/15/23 Information Source: Patient Mode of Arrival: Ambulatory Timing: Days Duration: Intermittent Prehospital treatment: None [place]: Shaky, Sweaty, Confusion Symptoms: Anxious, Shaky, Sweaty, Confusion History of: Diabetes Associated signs and symptoms: None Past Medical History PAST MEDICAL HISTORY: CHF, DM Past Medical History (Other): Systemic lupus erythematosus Surgical History: Denies all surgeries PARTS ASSEMBLER History: No Pertinent PARTS ASSEMBLER History Family History Family History: Reviewed,noncontributory to illness Social History Smoker: Non-Smoker Alcohol: Denies ETOH Use Drugs: Denies Drug Use Lives In: Home Constitutional: denies: chills, diaphoresis, fatigue, fever, malaise, sweats, weakness, others EENTM: denies: blurred vision, double vision, ear bleeding, ear discharge, ear drainage, ear pain, ear ringing, eye pain, eye redness, hearing loss, mouth pain, mouth swelling, nasal discharge, nose bleeding, nose congestion, nose pain, photophobia, tearing, throat pain, throat swelling, voice changes, others Respiratory: denies: cough, hemoptysis, orthopnea, SOB at rest, shortness of breath, SOB with excertion, stridor, wheezing, others Cardiovascular: denies: chest pain, dizzy spells, diaphoresis, Dyspnea on exertion, edema, irregular heart beat, left arm pain, lightheadedness, palpitations, PND, syncope, others Gastrointestinal: denies: abdomen distended, abdominal pain, blood streaked bowels, constipated, diarrhea, dysphagia, difficulty swallowing, hematemesis, melena, nausea, poor appetite, poor fluid intake, rectal bleeding, rectal pain, vomiting, others Genitourinary: denies: abnormal vagina bleeding, burning, dyspareunia, dysuria, flank pain, frequency, hematuria, incontinence, pain, , vagina discharge, urgency, others Neurological: denies: dizziness, fainting, headache, left sided numbness, left sided weakness, numbness, paresthesia, pre-existing deficit, right sided numbness, right sided weakness, seizure, speech problems, tingling, tremors, weakness, others Musculoskeletal: denies: back pain, gout, joint pain, joint swelling, muscle pain, muscle stiffness, neck pain, others Integumetry: denies: bruises, change in color, change in hair/nails, dryness, laceration, lesions, lumps, rash, wounds, others Allergic/Immunocompromised: denies: Difficulty Healing, Frequent Infections, Hives, Itching, others Hematologic/Lymphatic: denies: anemia, blood clots, easy bleeding, easy bruising, swollen glands, others Endocrine: denies: excessive hunger, excessive sweating, excessive thirst, excessive urination, flushing, intolerance to cold, intolerance to heat, unexplained weight gain, unexplained weight loss, others Psychiatric: denies: anxiety, bipolar disorder, depression, hopeless, panic disorder, schizophrenia, sleepless, suicidal, others Physical Exam General Appearance: No Apparent Distress, Normal HEENT: Normal ENT Inspection, Pharynx Normal, TMs Normal Neck: Full Range of Motion, Non-Tender, Normal, Normal Inspection Respiratory: Chest Non-Tender, Lungs Clear, No Accessory Muscle Use, No Respiratory Distress, Normal Breath Sounds Cardiovascular: No Edema, No JVD, No Murmur, No Gallop, Normal Peripheral Pulses, Regular Rate/Rhythm Breast Exam: Deferred Gastrointestinal: No Organomegaly, Non Tender, No Pulsatile Mass, Normal Bowel Sounds, Soft Genitalia: Deferred Pelvic: Deferred Rectal: Deferred Extremities: No calf tenderness, Normal capillary refill, Normal inspection, Normal range of motion, Non-tender, No pedal edema Musculoskeletal : Apperance: Normal Neurologic: Alert, alteration tailor II-XII nml as Tested, No Motor Deficits, Normal Affect, Normal Mood, No Sensory Deficits Cerebellar Function: Normal Reflexes: Normal Skin: Dry, Normal Color, Warm Lymphatic: No Adenopathy Was a procedure done? Was a procedure done?: No Differential Diagnosis (DM) Differential Diagnosis: Diabetic Coma, DKA, Encephalopathy, Hyperglycemia, Pyelonephritis, UTI X-Ray, Labs, Meds, VS Vital Signs Date Time Temp Pulse Resp B/P (MAP) Pulse Ox O2 Delivery O2 Flow Rate FiO2 05/18/24 21:35 100.1 115 16 120/75 (90) 100 100.1 Lab Test 05/18/24 21:41 05/18/24 21:30 Range/Units White Blood Count 8.4 4.4-10.8 10^3/uL Red Blood Count 2.88 L 4.0-5.20 10^6/uL Hemoglobin 9.9 L 12.2-16.2 g/dL Hematocrit 30.2 L 36.0-46.0 % Mean Corpuscular Volume 104.7 H 80.0-100.0 fL Mean Corpuscular Hemoglobin 34.4 H 28.0-32.0 pg Mean Corpuscular Hemoglobin Concent 32.8 32.0-36.0 g/dL Red Cell Distribution Width 22.4 H 11.8-14.3 % Platelet Count 139 L 140-450 10^3/uL Mean Platelet Volume 10.6 6.9-10.8 fL Neutrophils (%) (Auto) 78.4 37.0-80.0 % Lymphocytes (%) (Auto) 17.0 10.0-50.0 % Monocytes (%) (Auto) 4.2 0.0-12.0 % Eosinophils (%) (Auto) 0.0 0.0-7.0 % Basophils (%) (Auto) 0.4 0.0-2.0 % Neutrophils # (Auto) 6.6 1.6-8.6 10 ^3/uL Lymphocytes # (Auto) 1.4 0.4-5.4 10 ^3/uL Monocytes # (Auto) 0.3 0-1.3 10 ^3/uL Eosinophils # (Auto) 0 0-0.8 10 ^3/uL Basophils # (Auto) 0 0-0.2 10 ^3/uL Nucleated Red Blood Cells 0.4 % Sodium Level 127 L 136-145 mmol/L Potassium Level 4.4 3.5-5.1 mmol/L Chloride Level 94 L 98-107 mmol/L Carbon Dioxide Level 25 20-31 mmol/L Anion Gap 8 5-15 Blood Urea Nitrogen 25 H 9-23 mg/dL Creatinine 1.09 H 0.550-1.02 mg/dL Glomerular Filtration Rate Calc 64 >90 mL/min BUN/Creatinine Ratio 22.9 H 10.0-20.0 Serum Glucose 311 H 74-106 mg/dL Calcium Level 9.4 8.7-10.4 mg/dL Total Bilirubin 4.5 H 0.2-1.0 mg/dL Aspartate Amino Transferase (AST) 53 H 13-40 U/L Alanine Aminotransferase (ALT) 115 H 7-40 U/L Alkaline Phosphatase 461 H 46-116 U/L Total Protein 7.7 5.7-8.2 g/dL Albumin 4.1 3.2-4.8 g/dL POC Glucose 342 H 70-106 mg/dl Time of 1ST Reevaluation: 21:44 Reevaluation 1ST: Unchanged Patient Education/Counseling: Diagnosis, Treatment Family Education/Counseling: No Family Present Departure 1 Departure Time of Disposition: 01:37 (Patient was offered admission however using shared decision-making patient decided she would like to go home. She reports all her symptoms have resolved he is feeling better she has no acute complaints and would like to go home.) Impression: Primary Impression: Uncontrolled diabetes mellitus Qualified Codes: E11.65 - Type 2 diabetes mellitus with hyperglycemia Disposition: 01 HOME / SELF CARE / HOMELESS Condition: Stable Additional Instructions: It is important to follow up with the regular doctors and continue to take your regular medications. Discharged With: Relative (Mother) Critical Care Note Critical Care Time?: Yes (35 min-critical care time only) Critical care comment: hyperglycemia Stability Stability form required: No Heart Score Heart Score: Heart Score Response (Comments) Value History N/A 0 EKG N/A 0 Age N/A 0 Risk Factors N/A 0 Troponin N/A 0 Total 0 I personally scribed for JERONIMO SABA MD ([email or web address]) on 05/18/24 at 21:50. Electronically submitted by Chevy Zavala ([email or web address]). JERONIMO SABA MD May 18, 2024 21:50
[2024-05-18 22:04] LABS: Basophils # (auto) 0 10 ^3/uL (0-0.2); Eosinophils # (auto) 0 10 ^3/uL (0-0.8); Hematocrit 30.2 % (36.0-46.0); Hemoglobin 9.9 g/dL (12.2-16.2); Mean Corpuscular Hgb Conc. 32.8 g/dL (32.0-36.0); Monocytes # (auto) 0.3 10 ^3/uL (0-1.3)
[2024-05-18 22:06] LABS: Basophils % (auto) 0.4 % (0.0-2.0); Lymphocytes # (auto) 1.4 10 ^3/uL (0.4-5.4); Mean Corpuscular Hemoglobin 34.4 pg (28.0-32.0); Mean Corpuscular Volume 104.7 fL (80.0-100.0); Monocytes % (auto) 4.2 % (0.0-12.0); Neutrophils # (auto) 6.6 10 ^3/uL (1.6-8.6); Neutrophils % (auto) 78.4 % (37.0-80.0); Nucleated Red Blood Cells % 0.4 %; Platelet Count (auto) 139 10^3/uL (140-450); Red Blood Cells 2.88 10^6/uL (4.0-5.20); Red Cell Distribution Width 22.4 % (11.8-14.3); White Blood Cell 8.4 10^3/uL (4.4-10.8)
[2024-05-18 22:13] LABS: Alanine Aminotransferase 115 U/L (7-40); Albumin 4.1 g/dL (3.2-4.8); Alkaline Phosphatase 461 U/L (46-116); Anion Gap 8 (5-15); Aspartate Aminotransferase 53 U/L (13-40); BUN/Creatinine Ratio 22.9 (10.0-20.0); Blood Urea Nitrogen 25 mg/dL (9-23); Calcium 9.4 mg/dL (8.7-10.4); Carbon Dioxide 25 mmol/L (20-31); Chloride 94 mmol/L (98-107); Glucose 311 mg/dL (74-106); Potassium 4.4 mmol/L (3.5-5.1); Sodium 127 mmol/L (136-145); Total Protein 7.7 g/dL (5.7-8.2)
[2024-05-18 22:14] LABS: Bilirubin, Total 4.5 mg/dL (0.2-1.0)
--- NOTE | 2024-05-19 01:05 | DVH ---
Exam: CT CT AB PEL WO CON-NO ORAL OR IV History: abdominal pain Comparison Study: CT abdomen and pelvis without contrast 01/1923 Technique: Multidetector spiral CT of the abdomen was performed from lung bases to iliac crest. Imagi ng was performed without IV contrast. Axial, coronal and sagittal multiplanar reformats were obtained from the axial data set by the technologist. Radiation Dose : CT Dose: CTDI volume is 5.22 mGy. Dose-length product is 285.61 mGy*cm Findings: Evaluation of solid organs is limited due to lack of intravenous contrast use. Lung Bases: No acute or significant lung base finding. Normal heart size. No pleural or pericardial effusion. Liver: The liver is stably enlarged without focal lesions. Gallbladder and Biliary Tree: The gallbladder is surgically absent. No evidence of intrahepatic bilia ry ductal dilatation. Spleen: Unremarkable Pancreas: The pancreas is grossly normal in appearance. Adrenal Glands: Unremarkable Kidneys: Kidneys are grossly normal without calculi or hydronephrosis. Visualized Bowel: The stomach is grossly normal in appearance. Moderate colonic stool without evidenc e of obstruction. Ascites: Absent Lymphadenopathy: No mesenteric, retroperitoneal or periportal lymphadenopathy. Abdominal Wall and Mesentery: Small fat containing umbilical hernia. Otherwise unremarkable. Vasculature: The visualized abdominal aorta is normal in size and caliber. Evaluation of abdominal a nd pelvic vessels is limited due to lack of intravenous contrast. Musculoskeletal: Advanced degenerative changes of the bilateral hips redemonstrated as is extensive b ilateral substernal soft tissue calcification within the proximal bilateral anterior thighs and glute al regions. IMPRESSION: 1. Moderate colonic stool. 2. Interval resolution of pericardial effusion. 3. Stable hepatomegaly. 4. 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 Radiation optimization: All CT scans at this facility use at least one of these dose optimization nam hniques: automated exposure control mA and/or kV adjustment per patient size (includes targeted exam s where dose is matched to clinical indication) or iterative reconstruction.
[2024-05-19] MEDS: SODIUM CHLORIDE 0.9% 1,000 ML IV ONE (01:36)
[2024-05-19] MEDS: ONDANSETRON HCL 4 MG/2 ML VIAL IV ONE (01:36)
[2024-05-19 01:55] VITALS: PULSE 116; RESP 14; O2SAT 95
[2024-05-19 01:57] VITALS: BP 137/94; PULSE 116; RESP 16; TEMP 98.2; O2SAT 95
== END 2024-05-19 02:01 | disposition home or self-care (01) ==
LOC: ER 20:38
DX: E11.65 Type 2 diabetes mellitus with hyperglycemia (principal); I50.9 Heart failure, unspecified; M32.9 Systemic lupus erythematosus, unspecified; Z79.899 Other long term (current) drug therapy
CPT/HCPCS: 36415; 74176; 80053; 82947; 82962; 85025

== ENCOUNTER 2024-05-21 02:24 | Emergency (ER) | payer MEDICAID ==
[~2024-05-21] VITALS: Ht 154.9 cm; Wt 63.6 kg
[2024-05-21 04:38] LABS: Basophils # (auto) 0 10 ^3/uL (0-0.2); Eosinophils # (auto) 0 10 ^3/uL (0-0.8); Eosinophils % (auto) 0.1 % (0.0-7.0); Hematocrit 30.7 % (36.0-46.0); Neutrophils # (auto) 6.5 10 ^3/uL (1.6-8.6); Nucleated Red Blood Cells % 0.1 %
[2024-05-21 04:40] LABS: Basophils % (auto) 0.6 % (0.0-2.0); Lymphocytes # (auto) 0.9 10 ^3/uL (0.4-5.4); Mean Corpuscular Hemoglobin 33.7 pg (28.0-32.0); Mean Corpuscular Hgb Conc. 32.5 g/dL (32.0-36.0); Mean Corpuscular Volume 103.6 fL (80.0-100.0); Monocytes # (auto) 0.7 10 ^3/uL (0-1.3); Monocytes % (auto) 8.7 % (0.0-12.0); Neutrophils % (auto) 79.6 % (37.0-80.0); Platelet Count (auto) 143 10^3/uL (140-450); Red Blood Cells 2.97 10^6/uL (4.0-5.20); Red Cell Distribution Width 21.9 % (11.8-14.3); White Blood Cell 8.2 10^3/uL (4.4-10.8)
[2024-05-21 04:46] LABS: Anion Gap 8 (5-15); Carbon Dioxide 29 mmol/L (20-31); Potassium 4.2 mmol/L (3.5-5.1)
[2024-05-21 04:47] LABS: Calcium 10.2 mg/dL (8.7-10.4)
[2024-05-21 04:52] LABS: Blood Urea Nitrogen 33 mg/dL (9-23); Chloride 97 mmol/L (98-107); Glucose 161 mg/dL (74-106); Sodium 134 mmol/L (136-145)
[2024-05-21 05:00] VITALS: BP 107/74; PULSE 108; RESP 13; TEMP 97.9; O2SAT 100
--- NOTE | 2024-05-21 05:04 | ED.PDOC ---
History of Present Illness HPI Comments 44 y/o F, with a history of CHF, DM, and systemic lupus erythematosus, presents with mother for c/o bilateral large toe wound with associated pain, today. Per mother, patient endorses on having 10/10, stabbing pain that has been progressively worsening along with wounds unhealing following onset amidst multi ple antibiotic medication regimen placement. She also reports on recent ED visit on May 18, 2024 for elevated blood glucose levels. Patient has no reported fever, chills, weakness, numbness, tingling, or other associated symptoms or modifiers at this time. Chief Complaint: Lower Extremity Time Seen by MD: 03:55 Primary Care Provider: Brice Reviewed Notes: Nurses Notes, Medications, Allergies Allergies: Coded Allergies: NO KNOWN ALLERGIES (Unverified , 12/01/12) Home Meds Active Scripts Acetaminophen (Tylenol 8 Hour Arthritis) 650 Mg Tab, 650 MG PO TID, #30 TAB Prov:MOLINA DUFFY 10/13/22 Reported Medications Hydroxychloroquine Sulfate (PLAQUENIL) 200 Mg Tab, 1 TAB PO DAILY for 100 Days 02/07/24 Ferrous Sulfate (Ferosul) 325 Mg Tab, 325 MG PO for 50 Days, #100 02/07/24 Metoprolol Tartrate (Metoprolol Tartrate) 25 Mg Tab, 1 TAB PO BID for 100 Days 02/07/24 Prednisone (Prednisone) 5 Mg Tab, TAB PO UD for 33 Days, #100 02/07/24 Naproxen (NAPROSYN TABLET) 500 Mg Tb, 1 TAB PO BID for 15 Days, #30 02/07/24 Cephalexin (KEFLEX CAPSULE) 250 Mg Cp, 1 CAP PO TID for 10 Days, #30 02/07/24 Magnesium Oxide (MAGNESIUM OXIDE) 400 Mg Tab, 2 TAB PO BID for 25 Days, #100 02/15/23 Cyclobenzaprine HCl (Cyclobenzaprine Hydrochlo) 10 Mg Tab, 1 TAB PO BID for 50 Days, #100 02/15/23 Mupirocin (Pseudomonas Fluores (Mupirocin) 2 % Oin, 1 APPLIC TOP BID 02/15/23 Acetaminophen W/ Codeine (Acetaminophen/Codeine #2) 1 Tab Tab, 1 TAB PO Q6HPRN for pain 02/15/23 Metformin Hydrochloride (Metformin Hcl Er) 500 Mg Tab, 2 TAB PO BID 02/15/23 Cetirizine HCl (Cetirizine Hydrochloride) 10 Mg Tab, 1 TAB PO DAILY 02/15/23 Insulin NPH Isophane & Reg (Hu (Humulin 70/30 Kwikpen (70-30) 100 Unit/ml) 1 Inj Inj, 10 UNITS SC 02/15/23 Omeprazole ([facility]vs Omeprazole Odt) 20 Mg Tab, 40 MG PO DAILY Take 1 tablet by mouth daily 30 minutes before meal 02/15/23 Amlodipine Besylate (Amlodipine Besylate) 5 Mg Tab, 1 TAB PO DAILY 02/15/23 Information Source: Patient, Relative (Mother) Mode of Arrival: Wheelchair Severity: Moderate Timing: Days Duration: Since onset Prehospital treatment: Other (see HPI) Past Medical History PAST MEDICAL HISTORY: CHF, DM Past Medical History (Other): Systemic lupus erythematosus Surgical History: Denies all surgeries EARTH BURNER History: No Pertinent EARTH BURNER History Family History Family History: Reviewed,noncontributory to illness Social History Smoker: Non-Smoker Alcohol: Denies ETOH Use Drugs: Denies Drug Use Lives In: Home All Other Systems: Reviewed and Negative (Comprehensive systems review obtained and negative except for what is stated in the HPI.) Physical Exam General Appearance: No Apparent Distress, Normal HEENT: Normal ENT Inspection, Pharynx Normal, TMs Normal Neck: Full Range of Motion, Non-Tender, Normal, Normal Inspection Respiratory: Chest Non-Tender, Lungs Clear, No Accessory Muscle Use, No Respiratory Distress, Normal Breath Sounds Cardiovascular: No Edema, No JVD, No Murmur, No Gallop, Normal Peripheral Pulses, Regular Rate/Rhythm Breast Exam: Deferred Gastrointestinal: No Organomegaly, Non Tender, No Pulsatile Mass, Normal Bowel Sounds, Soft Genitalia: Deferred Pelvic: Deferred Rectal: Deferred Extremities: No calf tenderness, Normal capillary refill, Normal range of motion, No pedal edema, Other (erythema and warmth to bilateral lower extremities) Musculoskeletal : Apperance: Normal Neurologic: Alert, mercury cracking tester II-XII nml as Tested, No Motor Deficits, Normal Affect, Normal Mood, No Sensory Deficits Cerebellar Function: Normal Reflexes: Normal Skin: Dry, Normal Color, Warm, Other (erythema and warmth to bilateral lower extremities) Lymphatic: No Adenopathy Was a procedure done? Was a procedure done?: No Differential Dx Considerations may include: cellulitis, dermatitis, osteomyelitis, nonhealing diabetic wound, among others X-Ray, Labs, Meds, VS Vital Signs Date Time Temp Pulse Resp B/P (MAP) Pulse Ox O2 Delivery O2 Flow Rate FiO2 05/21/24 02:40 97.9 118 16 138/74 (95) 96 97.9 Lab Test 05/21/24 04:30 Range/Units White Blood Count 8.2 4.4-10.8 10^3/uL Red Blood Count 2.97 L 4.0-5.20 10^6/uL Hemoglobin 10.0 L 12.2-16.2 g/dL Hematocrit 30.7 L 36.0-46.0 % Mean Corpuscular Volume 103.6 H 80.0-100.0 fL Mean Corpuscular Hemoglobin 33.7 H 28.0-32.0 pg Mean Corpuscular Hemoglobin Concent 32.5 32.0-36.0 g/dL Red Cell Distribution Width 21.9 H 11.8-14.3 % Platelet Count 143 140-450 10^3/uL Mean Platelet Volume 10.4 6.9-10.8 fL Neutrophils (%) (Auto) 79.6 37.0-80.0 % Lymphocytes (%) (Auto) 11.0 10.0-50.0 % Monocytes (%) (Auto) 8.7 0.0-12.0 % Eosinophils (%) (Auto) 0.1 0.0-7.0 % Basophils (%) (Auto) 0.6 0.0-2.0 % Neutrophils # (Auto) 6.5 1.6-8.6 10 ^3/uL Lymphocytes # (Auto) 0.9 0.4-5.4 10 ^3/uL Monocytes # (Auto) 0.7 0-1.3 10 ^3/uL Eosinophils # (Auto) 0 0-0.8 10 ^3/uL Basophils # (Auto) 0 0-0.2 10 ^3/uL Nucleated Red Blood Cells 0.1 % Sodium Level 134 #L 136-145 mmol/L Potassium Level 4.2 3.5-5.1 mmol/L Chloride Level 97 L 98-107 mmol/L Carbon Dioxide Level 29 20-31 mmol/L Anion Gap 8 5-15 Blood Urea Nitrogen 33 H 9-23 mg/dL Creatinine 0.97 0.550-1.02 mg/dL Glomerular Filtration Rate Calc 73 >90 mL/min BUN/Creatinine Ratio 34.0 H 10.0-20.0 Serum Glucose 161 H 74-106 mg/dL Calcium Level 10.2 8.7-10.4 mg/dL Time of 1ST Reevaluation: 04:25 Reevaluation 1ST: Unchanged Patient Education/Counseling: Diagnosis, Treatment Family Education/Counseling: Diagnosis, Treatment Additional Information Previous visit documents reviewed: May 18, 2024 encounter for uncontrolled diabetes mellitus The following tests were ordered, and results were reviewed by me: CBC, BMP Additional Information was gathered from interviewing the following independent historians: mother I reviewed and agreed with the following test results read by other providers: n/a I discussed treatment and results with medical personnel and: Patient, mother Departure 1 Departure Time of Disposition: 05:05 (Patient has cellulitis of her bilateral lower extremities. She has follow up with her regular doctor later today. We will discharge patient home with outpatient follow up) Impression: Primary Impression: Cellulitis of both lower extremities Disposition: HOME / SELF CARE / HOMELESS Condition: Stable Additional Instructions: Your blood sugar today was 161. You have cellulitis. This is a skin infection. You were prescribed antibiotics. Please take as directed. You can take tylenol and motrin as needed for pain. It is important that you follow up with your regular doctor today. If your symptoms worsen or you have any other concerns then please return to the ER. e-Prescriptions Sulfamethoxazole W/Trimethopri (Bactrim Ds Tablet) 1 Tab Tb 1 TAB PO BID for 7 Days, #14 TAB Prov: JERONIMO SABA MD 05/21/24 Discharged With: Relative (Mother) Critical Care Note Critical Care Time?: No Stability Stability form required: No Heart Score Heart Score: Heart Score Response (Comments) Value History N/A 0 EKG N/A 0 Age N/A 0 Risk Factors N/A 0 Troponin N/A 0 Total 0 I personally scribed for JERONIMO SABA MD ([email or web address]) on 05/21/24 at 05:04. Electronically submitted by Harris Sy [email or web address]). JERONIMO SABA MD May 21, 2024 05:04
[2024-05-21] MEDS ORDERED: BACDST PO (05:07)
[2024-05-21] MEDS: HYDROcodone-ACET 5/325MG TAB PO ONE (05:18)
[2024-05-21] MEDS: CLINDAMYCIN HCL 150 MG CAP PO ONE (05:19)
== END 2024-05-21 05:28 | disposition home or self-care (01) ==
LOC: ER 02:24
DX: L03.116 Cellulitis of left lower limb (principal); L03.115 Cellulitis of right lower limb; E11.9 Type 2 diabetes mellitus without complications; I50.9 Heart failure, unspecified; M32.9 Systemic lupus erythematosus, unspecified; Z79.899 Other long term (current) drug therapy
CPT/HCPCS: 36415; 80048; 82947; 82962; 85025

== ENCOUNTER 2025-01-03 18:33 | Inpatient (IN) | payer MEDICAID ==
[~2025-01-03] VITALS: Ht 154.9 cm; Wt 77.1 kg
[~2025-01-03 18:33] MED LIST changes: +BACDST PO
--- NOTE | 2025-01-03 19:16 | ECG ---
[facility] Test Date: 2025-01-03 Test Time: 18:38:15 Pat Name: LIO MARTIN Department: [facility] ED Room: [address] [place] [address] Gender: F Allergist: ANNA : 1980 Requested By: ALTAGRACIA FOX Order Number: [id number] [place] MD: Ervin Campuzano Measurements Intervals [place] Rate: 102 P: 45 [place]: 154 QRS: 15 QRSD: 86 T: 25 QT: 315 QTc: 411 Interpretive Statements Sinus tachycardia Consider left atrial enlargement Electronically Signed On 01-06-2025 10:56:36 PST by Ervin Campuzano Please click the below link to view image of tracing.
[2025-01-03 19:33] LABS: Hematocrit 28.9 % (36.0-46.0); Hemoglobin 9.3 g/dL (12.2-16.2); Mean Corpuscular Hemoglobin 30.6 pg (28.0-32.0); Mean Corpuscular Volume 94.7 fL (80.0-100.0); Nucleated Red Blood Cells % 0.0 %
[2025-01-03 19:42] LABS: Potassium 5.0 mmol/L (3.5-5.1)
[2025-01-03 19:43] LABS: Anion Gap 14 (5-15); Calcium 10.1 mg/dL (8.7-10.4); Carbon Dioxide 21 mmol/L (20-31)
[2025-01-03 19:47] LABS: Chloride 98 mmol/L (98-107); Sodium 133 mmol/L (136-145)
[2025-01-03 19:48] LABS: BUN/Creatinine Ratio 7.2 (10.0-20.0); Blood Urea Nitrogen 36 mg/dL (9-23); Glucose 118 mg/dL (74-106)
[2025-01-03 23:43] LABS: Lactic Acid w/Reflex 3.0 mmol/L (0.4-2.0)
[2025-01-04] MEDS: SODIUM CHLORIDE 0.9% 1,000 ML IV ONE ×2 (00:14→03:04)
[2025-01-04] MEDS: PIPERACILLIN-TAZOB 3.375GM 100 ML IV ONE (00:30)
--- NOTE | 2025-01-04 01:42 | DVH ---
Exam: CT CT AB PEL WO CON-NO ORAL OR IV History: abd pain Comparison Study: CT CT AB PEL WO CON-NO ORAL OR IV on DOS: 05/19/24, CT CT AB PEL WO CON-NO ORAL OR IV on DOS: 02/14/23, CT CHEST WITHOUT CONTRAST on DOS: 02/13/23 Technique: Multidetector spiral CT of the abdomen was performed from lung bases to pubic symphysis. Imaging was performed without IV contrast. Axial, coronal and sagittal multiplanar reformats were obtained from the axial data set by the technologist. Radiation Dose : 1. Abdomen/Pelvis: CTDIvol 8.76 mGy, DLP 454.32 mGy*cm. Findings: Evaluation of solid organs is limited due to lack of intravenous contrast use. Lung Bases: No acute or significant lung base finding. Normal heart size. No pleural or pericardial effusion. Liver: The liver is normal in size. No focal lesions. Gallbladder and Biliary Tree: Gallbladder is surgically absent. Spleen: Unremarkable Pancreas: The pancreas is grossly normal in appearance. Adrenal Glands: Unremarkable Kidneys: Kidneys are grossly normal without calculi or hydronephrosis. Bladder: Grossly unremarkable for degree of distention. Bowel: The stomach is grossly normal in appearance. Small bowel and colon are normal in caliber and distribution. The appendix is not visualized; however, no secondary findings of acute appendicitis identified. Ascites: Absent Lymphadenopathy: No mesenteric, retroperitoneal or periportal lymphadenopathy. Abdominal Wall and Mesentery: Unremarkable. Vasculature: The visualized abdominal aorta is normal in size and caliber. Evaluation of abdominal and pelvic vessels is limited due to lack of intravenous contrast. Pelvic Organs: Unremarkable Musculoskeletal: No aggressive focal bony lesions, acute fractures or dislocation. IMPRESSION: No acute abdominal or pelvic findings. Radiation optimization: All CT scans at this facility use at least one of these dose optimization techniques: automated exposure control mA and/or kV adjustment per patient size (includes targeted exams where dose is matched to clinical indication) or iterative reconstruction.
--- NOTE | 2025-01-04 03:38 | ED.PDOC ---
HPI Comments 44-year-old female complaining of generalized weakness and fatigue x3 days. States yesterday she feeling much more fatigued, unable to get out of bed. She had a home health nurse come out in the morning today to assess her chronic foot wound on the right. Her blood pressure was in the lower end of 100/60. They were advised to come into the urgent Care, she went to [facility] and 911 was called as patient's blood pressure was 80/40. Patient denies any chest pain no shortness for breath no fever. States she did notice some mild intermittent chills. Upon arrival patient answering questions appropriately, still acting sluggish. Chief Complaint: Low Blood Pressure Time Seen by MD: 18:42 Primary Care Provider: [facility] Reviewed Notes: Nurses Notes Allergies: Coded Allergies: NO KNOWN ALLERGIES (Unverified , 12/01/12) Home Meds Active Scripts Sulfamethoxazole W/Trimethopri (Bactrim Ds Tablet) 1 Tab Tb, 1 TAB PO BID for 7 Days, #14 TAB Prov:JERONIMO SABA MD 05/21/24 Acetaminophen (Tylenol 8 Hour Arthritis) 650 Mg Tab, 650 MG PO TID, #30 TAB Prov:MOLINA DUFFY 10/13/22 Reported Medications Hydroxychloroquine Sulfate (PLAQUENIL) 200 Mg Tab, 1 TAB PO DAILY for 100 Days 02/07/24 Ferrous Sulfate (Ferosul) 325 Mg Tab, 325 MG PO for 50 Days, #100 02/07/24 Metoprolol Tartrate (Metoprolol Tartrate) 25 Mg Tab, 1 TAB PO BID for 100 Days 02/07/24 Prednisone (Prednisone) 5 Mg Tab, TAB PO UD for 33 Days, #100 02/07/24 Naproxen (NAPROSYN TABLET) 500 Mg Tb, 1 TAB PO BID for 15 Days, #30 02/07/24 Cephalexin (KEFLEX CAPSULE) 250 Mg Cp, 1 CAP PO TID for 10 Days, #30 02/07/24 Magnesium Oxide (MAGNESIUM OXIDE) 400 Mg Tab, 2 TAB PO BID for 25 Days, #100 02/15/23 Cyclobenzaprine HCl (Cyclobenzaprine Hydrochlo) 10 Mg Tab, 1 TAB PO BID for 50 Days, #100 02/15/23 Mupirocin (Pseudomonas Fluores (Mupirocin) 2 % Oin, 1 APPLIC TOP BID 02/15/23 Acetaminophen W/ Codeine (Acetaminophen/Codeine #2) 1 Tab Tab, 1 TAB PO Q6HPRN for pain 02/15/23 Metformin Hydrochloride (Metformin Hcl Er) 500 Mg Tab, 2 TAB PO BID 02/15/23 Cetirizine HCl (Cetirizine Hydrochloride) 10 Mg Tab, 1 TAB PO DAILY 02/15/23 Insulin NPH Isophane & Reg (Hu (Humulin 70/30 Kwikpen (70-30) 100 Unit/ml) 1 Inj Inj, 10 UNITS SC 02/15/23 Omeprazole ([facility] Omeprazole Odt) 20 Mg Tab, 40 MG PO DAILY Take 1 tablet by mouth daily 30 minutes before meal 02/15/23 Amlodipine Besylate (Amlodipine Besylate) 5 Mg Tab, 1 TAB PO DAILY 02/15/23 Information Source: Patient, Emergency Med Personnel Mode of Arrival: EMS Past Medical History PAST MEDICAL HISTORY: CHF, DM Surgical History: Denies all surgeries MATERIAL MAN History: No Pertinent MATERIAL MAN History Family History Family History: Reviewed,noncontributory to illness Social History Smoker: Non-Smoker Alcohol: Denies ETOH Use Drugs: Denies Drug Use Lives In: Home Constitutional: reports: fatigue; denies: chills, diaphoresis, fever, malaise, sweats, weakness, others EENTM: denies: blurred vision, double vision, ear bleeding, ear discharge, ear drainage, ear pain, ear ringing, eye pain, eye redness, hearing loss, mouth pain, mouth swelling, nasal discharge, nose bleeding, nose congestion, nose pain, photophobia, tearing, throat pain, throat swelling, voice changes, others Respiratory: denies: cough, hemoptysis, orthopnea, SOB at rest, shortness of breath, SOB with excertion, stridor, wheezing, others Cardiovascular: denies: chest pain, dizzy spells, diaphoresis, Dyspnea on exertion, edema, irregular heart beat, left arm pain, lightheadedness, palpitations, PND, syncope, others Gastrointestinal: denies: abdomen distended, abdominal pain, blood streaked bowels, constipated, diarrhea, dysphagia, difficulty swallowing, hematemesis, melena, nausea, poor appetite, poor fluid intake, rectal bleeding, rectal pain, vomiting, others Genitourinary: denies: abnormal vagina bleeding, burning, dyspareunia, dysuria, flank pain, frequency, hematuria, incontinence, pain, , vagina discharge, urgency, others Neurological: denies: dizziness, fainting, headache, left sided numbness, left sided weakness, numbness, paresthesia, pre-existing deficit, right sided numbness, right sided weakness, seizure, speech problems, tingling, tremors, weakness, others Musculoskeletal: denies: back pain, gout, joint pain, joint swelling, muscle pain, muscle stiffness, neck pain, others Integumetry: denies: bruises, change in color, change in hair/nails, dryness, laceration, lesions, lumps, rash, wounds, others Physical Exam General Appearance: Mild Distress, Normal HEENT: Normal ENT Inspection, Pharynx Normal, TMs Normal Neck: Full Range of Motion, Non-Tender, Normal, Normal Inspection Respiratory: Chest Non-Tender, Lungs Clear, No Accessory Muscle Use, No Respiratory Distress, Normal Breath Sounds Cardiovascular: No Edema, No JVD, No Murmur, No Gallop, Normal Peripheral Pulses, Regular Rate/Rhythm Breast Exam: Deferred Gastrointestinal: No Organomegaly, Non Tender, No Pulsatile Mass, Normal Bowel Sounds, Soft Genitalia: Deferred Pelvic: Deferred Rectal: Deferred Extremities: No calf tenderness, Normal capillary refill, Normal inspection, Normal range of motion, Non-tender, No pedal edema Musculoskeletal : Apperance: Normal Neurologic: Alert, pediatric clinical dietician II-XII nml as Tested, No Motor Deficits, Normal Affect, Normal Mood, No Sensory Deficits Cerebellar Function: Normal Reflexes: Normal Skin: Dry, Normal Color, Warm, Wounds (Wound to the right foot great toe tip, no obvious discharge, no obvious smell/odor) Lymphatic: No Adenopathy Was a procedure done? Was a procedure done?: No CP Differential Dx Differential Diagnosis: Other Comment Sepsis, osteomyelitis, urinary tract infection, acute kidney failure, X-Ray, Labs, Meds, VS Vital Signs Date Time Temp Pulse Resp B/P (MAP) Pulse Ox O2 Delivery O2 Flow Rate FiO2 01/04/25 02:22 102 16 99 Room Air 01/04/25 02:22 99.7 102 16 88/46 (60) 99 99.7 01/04/25 00:28 98.0 70 16 110/64 (79) 94 98.0 01/03/25 18:42 102 01/03/25 18:36 98.8 103 20 130/82 99 98.8 Lab Test 01/04/25 01:20 01/03/25 22:22 01/03/25 19:18 Range/Units Lactic Acid Level 4.1 *H 3.0 *H 0.4-2.0 mmol/L White Blood Count 19.9 H 4.4-10.8 10^3/uL Red Blood Count 3.05 L 4.0-5.20 10^6/uL Hemoglobin 9.3 L 12.2-16.2 g/dL Hematocrit 28.9 L 36.0-46.0 % Mean Corpuscular Volume 94.7 80.0-100.0 fL Mean Corpuscular Hemoglobin 30.6 28.0-32.0 pg Mean Corpuscular Hemoglobin Concent 32.3 32.0-36.0 g/dL Red Cell Distribution Width 13.8 11.8-14.3 % Platelet Count 141 140-450 10^3/uL Mean Platelet Volume 8.3 6.9-10.8 fL Neutrophils (%) (Auto) 91.5 H 37.0-80.0 % Lymphocytes (%) (Auto) 1.8 L 10.0-50.0 % Monocytes (%) (Auto) 6.5 0.0-12.0 % Eosinophils (%) (Auto) 0.0 0.0-7.0 % Basophils (%) (Auto) 0.2 0.0-2.0 % Neutrophils # (Auto) 18.2 H 1.6-8.6 10 ^3/uL Lymphocytes # (Auto) 0.4 0.4-5.4 10 ^3/uL Monocytes # (Auto) 1.3 0-1.3 10 ^3/uL Eosinophils # (Auto) 0 0-0.8 10 ^3/uL Basophils # (Auto) 0 0-0.2 10 ^3/uL Nucleated Red Blood Cells 0.0 % Sodium Level 133 L 136-145 mmol/L Potassium Level 5.0 3.5-5.1 mmol/L Chloride Level 98 98-107 mmol/L Carbon Dioxide Level 21 20-31 mmol/L Anion Gap 14 5-15 Blood Urea Nitrogen 36 H 9-23 mg/dL Creatinine 5.00 H 0.550-1.02 mg/dL Glomerular Filtration Rate Calc 10 >90 mL/min BUN/Creatinine Ratio 7.2 L 10.0-20.0 Serum Glucose 118 H 74-106 mg/dL Calcium Level 10.1 8.7-10.4 mg/dL Current Medications Medications (Trade) Dose Ordered Sig/Alisha Route Start Time Stop Time Status Last Admin Sodium Chloride 1,000 ml @ 1,000 mls/hr Q1H ONCE IV 01/03/25 19:15 01/03/25 20:20 DC 01/04/25 00:14 Piperacillin Sod/ Tazobactam Sod 100 ml @ 100 mls/hr ONCE ONCE IV 01/04/25 00:00 01/04/25 00:59 DC 01/04/25 00:30 Sodium Chloride 1,000 ml @ 1,000 mls/hr Q1H ONCE IV 01/04/25 03:00 01/04/25 03:59 01/04/25 03:04 X-Ray, Labs, Meds, VS Comment Spoke with at [facility], initial contact patient's was to be transferred to [facility] , authorization number [id number] CT abdomen pelvis was performed and negative Patient's lactic acid increased, patient's blood pressure decreased make her unstable for transport [facility] for patient will be admitted to this hospital. Time of 1ST Reevaluation: 03:37 Reevaluation 1ST: Unchanged Patient Education/Counseling: Diagnosis, Treatment Family Education/Counseling: Diagnosis, Treatment SEPSIS Sepsis Screen Date sepsis recognized/suspect: Jan 04, 2025 Time Sepsis recognized/suspect: 221 Recent Procedure: No On Antibiotic Therapy: Yes Respiratory Rate >20: No Heart Rate >90: Yes Temp<36 C (96.8 F) or >38.3 C: No SBP <90 or MAP <65 mmHG: Yes New Acute Mental Status Change: No Is the patient on CPAP, BIPAP,: No Physician Orders Urinalysis (01/03/25 19:07) Blood Culture (01/03/25 21:46) Ct Ab Pel Wo Con-No Oral Or Iv (01/04/25 00:25) Sodium Chloride 0.9% (01/04/25 03:00) Imaging Transfer Request (01/04/25 03:12) Vital Signs Date Time Temp Pulse Resp B/P (MAP) Pulse Ox O2 Delivery O2 Flow Rate FiO2 01/04/25 02:22 102 16 99 Room Air 01/04/25 02:22 99.7 102 16 88/46 (60) 99 99.7 01/04/25 00:28 98.0 70 16 110/64 (79) 94 98.0 01/03/25 18:42 102 01/03/25 18:36 98.8 103 20 130/82 99 98.8 Laboratory Tests Test 01/03/25 19:18 01/03/25 22:22 01/04/25 01:20 White Blood Count 19.9 10^3/uL (4.4-10.8) H Lactic Acid Level 3.0 mmol/L (0.4-2.0) *H 4.1 mmol/L (0.4-2.0) *H Medications Medications Dose Ordered Sig/Alisha Route Start Time Stop Time Status Last Admin Dose Admin Piperacillin Sod/ Tazobactam Sod 100 ml @ 100 mls/hr ONCE ONCE IV 01/04/25 00:00 01/04/25 00:59 DC 01/04/25 00:30 Sodium Chloride 1,000 ml @ 1,000 mls/hr Q1H ONCE IV 01/03/25 19:15 01/03/25 20:20 DC 01/04/25 00:14 Sodium Chloride 1,000 ml @ 1,000 mls/hr Q1H ONCE IV 01/04/25 03:00 01/04/25 03:59 01/04/25 03:04 Departure 1 Departure Time of Disposition: 03:34 Impression: Primary Impression: Uncontrolled diabetes mellitus Qualified Codes: E11.65 - Type 2 diabetes mellitus with hyperglycemia Additional Impressions: Elevated lactic acid level Leukocytosis Qualified Codes: D72.825 - Bandemia Sepsis Qualified Codes: A41.9 - Sepsis, unspecified organism; R65.21 - Severe sepsis with septic shock; N17.9 - Acute kidney failure, unspecified Acute kidney failure Qualified Codes: N17.9 - Acute kidney failure, unspecified Disposition: 09 ADMITTED INPATIENT Condition: Guarded Critical Care Note Critical Care Time?: No Stability Stability form required: No Heart Score Heart Score: Heart Score Response (Comments) Value History N/A 0 EKG N/A 0 Age N/A 0 Risk Factors N/A 0 Troponin N/A 0 Total 0 [facility]RAC[facility] Jan 04, 2025 03:38
[2025-01-04] MEDS: MIDODRINE HCL 10 MG TAB PO ONE (04:15)
[2025-01-04] MEDS ORDERED: HYDROcodone-ACET 5/325MG TAB PO PRN (04:15)
[2025-01-04] MEDS ORDERED: DOCUSATE SOD 100 MG CAP PO PRN (04:15)
[2025-01-04] MEDS ORDERED: VANCOMYCIN PER PHARMACY 0 MG IV SCH ×2 (04:15→09:30)
[2025-01-04] MEDS: SODIUM CHLORIDE 0.9% 500 ML IV ONE (05:00)
[2025-01-04] MEDS ORDERED: MORPHINE SULFATE INJ 2 MG/ml SYRG IV PRN (05:15)
[2025-01-04] MEDS ORDERED: NITROGLYCERIN 0.4 MG SL TAB SL PRN (05:15)
[2025-01-04 05:17] LABS: Hematocrit 27.7 % (36.0-46.0); Hemoglobin 8.8 g/dL (12.2-16.2); Mean Corpuscular Hemoglobin 30.3 pg (28.0-32.0); Mean Corpuscular Volume 94.9 fL (80.0-100.0); Nucleated Red Blood Cells % 0.0 %
--- NOTE | 2025-01-04 05:20 | DVHHP2 ---
History of Present Illness Reason for Visit: Sepsis, unspecified organism History of Present Illness The patient is a 44-year-old female with past medical history of CHF and diabetes mellitus who presented to [facility] ED with complaint of generalized weakness for the past 3 days. Patient reports she has been exper iencing generalized weakness, associated with fatigue, unable to get out of bed, getting worse that prompted this visit. She had home health nurse come out in the morning today to assess her chronic foot wound on the right. Patient was seen and evaluated in the ED, laboratory data shows WBC 19.9, hemoglobin 9.3, hematocrit 28.9, platelets 141, sodium 133, potassium 5.0, BUN 36, creatinine 5.0, glucose 118, calcium 10.1, lactic acid 3.0, blood pressure 88/46 trending up to 135/74, heart rate 102, temperature 99.7 F, O2 saturation 99% on room air. Patient was given IV fluid normal saline, started on IV antibiotic regimen Zosyn, please see medication orders section in the computer. On my assessment, mother at bedside, patient denied chest pain, no headache, dizziness, diaphoresis, shortness of breaths, no diarrhea, nausea, vomiting, fever, no chills. Patient was admitted for further evaluation and medical management. Past Medical History CHF, DM Past Surgical History Denies all surgeries Family History Reviewed, noncontributory to the management of this case. Past Social History The patient lives at home, denies smoking, alcohol or illicit drugs abuse. Review of Systems Constitutional: Yes: Weakness, Other (Fatigue); No: Fever, Chills, Sweats, Malaise Eyes: No: Pain, Vision change, Conjunctivae inflammation, Eyelid inflammation, Other, Redness ENT: No: Ear pain, Ear discharge, Nose pain, Nose discharge, Nose congestion, Mouth pain, Mouth swelling, Throat pain, Throat swelling, Other Respiratory: No: Cough, Dry, Shortness of breath, SOB with excertion, Wheezing, Hemoptysis, Pleuritic Pain, Sputum, Wheezing, Other Cardiovascular: No: Chest Pain, Palpitations, Orthopnea, Paroxysmal Noc. Dyspnea, Edema, Lt Headedness, Other Gastrointestinal: No: Nausea, Vomiting, Abdominal Pain, Diarrhea, Constipation, Melena, Hematochezia, Other Genitourinary: No Dysuria, No Frequency, No Incontinence, No Hematuria, No Retention, No Other Musculoskeletal: No: other, neck pain, shoulder pain, arm pain, back pain, hand pain, leg pain, foot pain Skin: No: Rash, Lesions, Jaundice, Bruising, Other Neurological: No: Weakness, Numbness, Incoordination, Change in speech, Confusion, Seizures, Other Allergies: Coded Allergies: NO KNOWN ALLERGIES (Unverified , 12/01/12) Medications Current Medications Medications Dose Ordered Sig/Alisha Route Start Time Stop Time Status Last Admin Dose Admin Piperacillin Sod/ Tazobactam Sod 100 ml @ 25 mls/hr Q12HR IV 01/04/25 10:00 UNV Vancomycin HCl 0 ml @ 0 mls/hr PER PHARMACY IV 01/04/25 04:15 UNV Famotidine 20 mg DAILY IV 01/04/25 10:00 Diagnostic Test (Pha) 1 strip IQ4HR 01/04/25 08:00 Insulin Human Regular IQ4HR SC 01/04/25 08:00 Dextrose 50 ml UD PRN IV 01/04/25 04:15 Sodium Chloride 10 ml Q8HR IV 01/04/25 06:00 Acetaminophen/ Hydrocodone Bitart 1 tab Q4HP PRN PO 01/04/25 04:15 Ondansetron HCl 4 mg Q4HP PRN IV 01/04/25 04:15 Docusate Sodium 100 mg BIDPRN PRN PO 01/04/25 04:15 Acetaminophen 650 mg Q6HP PRN PO 01/04/25 04:15 Midodrine 10 mg TID@0600,1200,1800 PO 01/04/25 06:00 Exam Vital Signs Vital Signs Date Time Temp Pulse Resp B/P (MAP) Pulse Ox O2 Delivery O2 Flow Rate FiO2 01/04/25 02:22 102 16 99 Room Air 01/04/25 02:22 99.7 88/46 (60) 99.7 General Appearance: Alert, Oriented X3, Cooperative, No acute distress HEENT: Atraumatic, PERRLA, EOMI, Mucous membr. moist/pink Respiratory: Normal air movement Cardiovascular: Regular rate, Normal S1, Normal S2, No murmurs Abdominal: Normal bowel sounds, Soft, No tenderness, No hepatospenomegaly, No masses Extremities: No clubbing, No cyanosis, No edema, Normal pulses, No tenderness/swelling Skin: No rashes, No significant lesion Neuro: Normal speech, Normal tone, Sensation intact, Cranial nerves 3-12 NL, Reflexes 2+, Other (Generalized weakness) Psych/Mental Status: Mental status NL, Mood NL Labs/Xrays Labs Test 01/04/25 04:55 01/03/25 19:18 Range/Units Eosinophils (%) (Auto) 0.0 0.0-7.0 % Eosinophils # (Auto) 0 0-0.8 10 ^3/uL Basophils # (Auto) 0 0-0.2 10 ^3/uL Nucleated Red Blood Cells 0.0 % PATIENT: LIO MARTIN ACCT: [id number] UNIT: [id number] : 1980 LOC: ER ROOM / BED: / AGE / SEX: 44 / F ADM STATUS: REG ER SERVICE [id number] ORDERING PHYSICIAN: ALTAGRACIA FOX PROCEDURE(s): ABPL - CT AB PEL WO CON-NO ORAL OR IV REASON: abd pain ORDER NUMBER(s): [id number], ACCESSION NUMBER(s): [id number] Exam: CT CT AB PEL WO CON-NO ORAL OR IV History: abd pain Comparison Study: CT CT AB PEL WO CON-NO ORAL OR IV on DOS: 05/19/24, CT CT AB PEL WO CON-NO ORAL OR IV on DOS: 02/14/23, CT CHEST WITHOUT CONTRAST on DOS: 02/13/23 Technique: Multidetector spiral CT of the abdomen was performed from lung bases to pubic symphysis. Imaging was performed without IV contrast. Axial, coronal and sagittal multiplanar reformats were obtained from the axial data set by the technologist. Radiation Dose: 1. Abdomen/Pelvis: CTDIvol 8.76 mGy, DLP 454.32 mGy*cm. Findings: Evaluation of solid organs is limited due to lack of intravenous contrast use. Lung Bases: No acute or significant lung base finding. Normal heart size. No pleural or pericardial effusion. Liver: The liver is normal in size. No focal lesions. Gallbladder and Biliary Tree: Gallbladder is surgically absent. Spleen: Unremarkable Pancreas: The pancreas is grossly normal in appearance. Adrenal Glands: Unremarkable Kidneys: Kidneys are grossly normal without calculi or hydronephrosis. Bladder: Grossly unremarkable for degree of distention. Bowel: The stomach is grossly normal in appearance. Small bowel and colon are normal in caliber and distribution. The appendix is not visualized; however, no secondary findings of acute appendicitis identified. Ascites: Absent Lymphadenopathy: No mesenteric, retroperitoneal or periportal lymphadenopathy. Abdominal Wall and Mesentery: Unremarkable. Vasculature: The visualized abdominal aorta is normal in size and caliber. Evaluation of abdominal and pelvic vessels is limited due to lack of intravenous contrast. Pelvic Organs: Unremarkable Musculoskeletal: No aggressive focal bony lesions, acute fractures or dislocation. IMPRESSION: No acute abdominal or pelvic findings. SEPSIS Sepsis Screen Date sepsis recognized/suspect: Jan 04, 2025 Time Sepsis recognized/suspect: 221 Recent Procedure: No On Antibiotic Therapy: Yes Respiratory Rate >20: No Heart Rate >90: Yes Temp<36 C (96.8 F) or >38.3 C: No SBP <90 or MAP <65 mmHG: Yes New Acute Mental Status Change: No Is the patient on CPAP, BIPAP,: No Physician Orders Blood Culture (01/03/25 21:46) Ct Ab Pel Wo Con-No Oral Or Iv (01/04/25 00:25) Imaging Transfer Request (01/04/25 03:12) Complete Blood Count (01/04/25 04:14) Comprehensive Metabolic Panel (01/04/25 04:14) B-Type Natriuretic Peptide (01/04/25 04:14) Piperacillin-Tazob 3.375gm (Zosyn 3.375g (01/04/25 10:00) Vancomycin Per Pharmacy (01/04/25 04:15) Famotidine Injection (Pepcid Injection) (01/04/25 10:00) *[facility] (01/04/25 04:14) Consistent Carb(Ccho)Diabetes (01/04/25 Breakfast) Glucose Blood (Accu-Chek Comfort Curve T (01/04/25 08:00) Insulin R (Human) (Insulin R) (01/04/25 08:00) Dextrose 50% Syringe (01/04/25 04:15) Allergies (01/04/25 04:14) Code Status (01/04/25 04:14) Sodium Chloride Lock (Saline Lock Ns) (01/04/25 06:00) Oxygen Per Hour (01/04/25 04:14) Hydrocodone-Acet 5/325mg Tab (Reading 5/32 (01/04/25 04:15) Ondansetron Hcl (Zofran) (01/04/25 04:15) Docusate Sodium Capsule (Colace Capsule) (01/04/25 04:15) Fall Risk Precautions In Place QSHIFT (01/04/25 04:14) Complete Blood Count (01/05/25 04:00) Comprehensive Metabolic Panel (01/05/25 04:00) Condition: Serious (01/04/25 04:14) Acetaminophen Tablet (Tylenol Tablet) (01/04/25 04:15) Maintain Bed Rest (01/04/25 04:14) Sequential Compression Device (01/04/25 ) Midodrine Tablet (Proamatine Tablet) (01/04/25 06:00) Sodium Chloride 0.9% (01/04/25 04:30) Lactic Acid W/ Reflex Order (01/04/25 04:18) Admit (01/04/25 05:13) Nitroglycerin Sublingual (Ntrostat Subli (01/04/25 05:15) Morphine Sulfate Injection (01/04/25 05:15) Stat Ekg For Chest Pain (01/04/25 05:13) Notify Md Of Changes From Base (01/04/25 05:13) Precision Thread Grinder Operator For 24 Hours (01/04/25 05:13) Emergency Dysrhythmia Protocol (01/04/25 05:13) Rhythm Strips Once Every Shift (01/04/25 05:13) Oxygen By Nasal Cannula (01/04/25 05:13) Vital Signs Date Time Temp Pulse Resp B/P (MAP) Pulse Ox O2 Delivery O2 Flow Rate FiO2 01/04/25 02:22 102 16 99 Room Air 01/04/25 02:22 99.7 102 16 88/46 (60) 99 99.7 01/04/25 00:28 98.0 70 16 110/64 (79) 94 98.0 Laboratory Tests Test 01/03/25 19:18 01/03/25 22:22 01/04/25 01:20 01/04/25 04:55 White Blood Count 19.9 10^3/uL (4.4-10.8) H Pending Lactic Acid Level 3.0 mmol/L (0.4-2.0) *H 4.1 mmol/L (0.4-2.0) *H Pending Medications Medications Dose Ordered Sig/Alisha Route Start Time Stop Time Status Last Admin Dose Admin Piperacillin Sod/ Tazobactam Sod 100 ml @ 100 mls/hr ONCE ONCE IV 01/04/25 00:00 01/04/25 00:59 DC 01/04/25 00:30 100 MLS/HR Sodium Chloride 1,000 ml @ 1,000 mls/hr Q1H ONCE IV 01/03/25 19:15 01/03/25 20:20 DC 01/04/25 00:14 1,000 MLS/HR Sodium Chloride 1,000 ml @ 1,000 mls/hr Q1H ONCE IV 01/04/25 03:00 01/04/25 03:59 DC 01/04/25 03:04 1,000 MLS/HR Assessment/Plan Assessment/Plan Sepsis, unspecified organism Severe sepsis with septic shock Acute kidney failure, unspecified Type 2 diabetes mellitus with hyperglycemia Generalized weakness Plan 1. Admit to telemetry unit 2. Breathing treatment 3. Pain control management 4. IV antibiotic management 5. Management of fluids and electrolytes 6. Consultation for hospitalist 7. Diagnostic test chest x-ray 8. DVT prophylaxis on SCDs 9. Repeat labs CBC, CMP in a.m. 10. Home medication reviewed and reconciled 11. Continue with current medical management 12. Treatment plan discussed with patient and RN. Patient verbalized understanding. Plan discussed with: Patient, Other (RN) My Orders Orders - CONCEPCIÓN ALEJANDRO DNP Procedure Category Date Status Time Complete Blood Count LAB 01/04/25 In Process 04:14 Comprehensive LAB 01/04/25 In Process Metabolic Panel 04:14 B-Type Natriuretic LAB 01/04/25 In Process Peptide 04:14 Piperacillin-Tazob PHA 01/04/25 Pending 3.375gm (Zosyn 3.375g 10:00 Vancomycin Per PHA 01/04/25 Pending Pharmacy 04:15 Famotidine Injection PHA 01/04/25 In Process (Pepcid Injection) 10:00 *[facility] CONS 01/04/25 Transmitted -[place] 04:14 Consistent DIET 01/04/25 Transmitted Carb(Ccho)Diabetes Breakfast Glucose Blood PHA 01/04/25 In Process (Accu-Chek Comfort 08:00 Insulin R (Human) PHA 01/04/25 In Process (Insulin R) 08:00 Dextrose 50% Syringe PHA 01/04/25 In Process 04:15 Allergies [facility] 01/04/25 In Process 04:14 Code Status CODE 01/04/25 Transmitted 04:14 Sodium Chloride Lock PHA 01/04/25 In Process (Saline Lock Ns) 06:00 Oxygen Per Hour RT 01/04/25 Transmitted 04:14 Hydrocodone-Acet PHA 01/04/25 In Process 5/325mg Tab (Reading 04:15 Ondansetron Hcl PHA 01/04/25 In Process (Zofran) 04:15 Docusate Sodium PHA 01/04/25 In Process Capsule (Colace 04:15 Fall Risk Precautions [facility] 01/04/[address] 04:14 Complete Blood Count LAB 01/05/25 Verified 04:00 Comprehensive LAB 01/05/25 Verified Metabolic Panel 04:00 Condition: Serious [facility] 01/04/25 In Process 04:14 Acetaminophen Tablet PHA 01/04/25 In Process (Tylenol Tablet) 04:15 Maintain Bed Rest [facility] 01/04/25 In Process 04:14 Sequential JOSELYN 01/04/25 In Process Compression Device Midodrine Tablet [facility] 01/04/25 In Process (Proamatine Tablet) 06:00 Sodium Chloride 0.9% [facility] 01/04/25 In Process 04:30 Lactic Acid W/ Reflex LAB 01/04/25 In Process Order 04:18 Admit ADMIT 01/04/25 Verified 05:13 Nitroglycerin [facility] 01/04/25 Verified Sublingual (Ntrostat 05:15 Morphine Sulfate [facility] 01/04/25 Verified Injection 05:15 Stat Ekg For Chest [facility] 01/04/25 Verified Pain 05:13 Notify Of Changes [facility] 01/04/25 Verified From Base 05:13 Precision Thread Grinder Operator For [facility] 01/04/25 Verified 24 Hours 05:13 Emergency Dysrhythmia [facility] 01/04/25 Verified Protocol 05:13 Rhythm Strips Once [facility] 01/04/25 Verified Every Shift 05:13 Oxygen By Nasal RT 01/04/25 Verified Cannula 05:13 Problem List: (1) Sepsis, unspecified organism (2) Severe sepsis with septic shock (3) Acute kidney failure, unspecified (4) Type 2 diabetes mellitus with hyperglycemia (5) Generalized weakness Date of Service: Jan 04, 2025 Billing Provider: CONCEPCIÓN ALEJANDRO DNP Common Visit Codes: [id number] INP/OBS CARE (HIGH) CONCEPCIÓN ALEJANDRO DNP Jan 04, 2025 05:20
[2025-01-04 05:37] LABS: Alanine Aminotransferase 15 U/L (7-40); Albumin 3.9 g/dL (3.2-4.8); Alkaline Phosphatase 100 U/L (46-116); BUN/Creatinine Ratio 9.2 (10.0-20.0); Total Protein 7.2 g/dL (5.7-8.2)
[2025-01-04 05:38] LABS: Bilirubin, Total 0.3 mg/dL (0.2-1.0)
[2025-01-04] MEDS: VANCOMYCIN 1GM/250ML KIT 250 ML IV ONE (05:43)
[2025-01-04 05:50] LABS: Lactic Acid w/Reflex 3.0 mmol/L (0.4-2.0)
[2025-01-04 06:00] VITALS: PULSE 120; RESP 18; O2SAT 95
[2025-01-04] MEDS: MIDODRINE HCL 10 MG TAB PO SCH (06:00)
[2025-01-04] MEDS: SODIUM CHLOR 0.9% PF (SALINE LOCK) 10ML VIAL/SYR IV SCH (06:00)
[2025-01-04 06:02] LABS: Blood Urea Nitrogen 34 mg/dL (9-23); Calcium 8.1 mg/dL (8.7-10.4); Carbon Dioxide 17 mmol/L (20-31); Glucose 147 mg/dL (74-106)
[2025-01-04 06:05] LABS: Anion Gap 14 (5-15); Chloride 104 mmol/L (98-107); Potassium 5.0 mmol/L (3.5-5.1)
[2025-01-04 06:10] LABS: Sodium 135 mmol/L (136-145)
[2025-01-04] MEDS: ACETAMINOPHEN 325 MG TAB PO PRN (06:20)
[2025-01-04 07:53] LABS: Urine Protein, UAD 1+ (Negative); Urine WBC Clumps PRESENT /hpf (None Seen)
[2025-01-04] MEDS: ACCU-CHEK COMFORT CURVE STRIP VI SCH (08:00)
[2025-01-04] MEDS: NOREPINEPHRINE 8 MG/250ML KIT 250 ML IV SCH (08:15)
[2025-01-04 09:00] VITALS: PULSE 105; RESP 20; O2SAT 100
[2025-01-04] MEDS: InsuLIN REG 1unit/0.01ml Soln (100units/ml) SC SCH (09:15)
[2025-01-04] MEDS ORDERED: VANCOMYCIN 1GM/250ML KIT 250 ML IV ONE (09:30)
[2025-01-04] MEDS: SODIUM CHLORIDE 0.9% 1,450 ML IV ONE (09:39)
--- NOTE | 2025-01-04 09:40 | DVHINCON2 ---
Date of service: Jan 04, 2025 Referring Physician Shyam Escamilla, nurse practitioner Reason for Consultation Acute kidney injury History of Present Illness Patient is 44-year-old female with past medical history significant for diabetes mellitus and Congestive heart failure is admitted for three day history of generalized weakness and fatigue. On admission patient found to have elevated BUN creatinine nephrology is consulted for acute kidney injury Past Medical History Diabetes mellitus Congestive heart failure Allergies: Coded Allergies: NO KNOWN ALLERGIES (Unverified , 12/01/12) Home Meds Active Scripts Sulfamethoxazole W/Trimethopri (Bactrim Ds Tablet) 1 Tab Tb, 1 TAB PO BID for 7 Days, #14 TAB Prov:JERONIMO SABA MD 05/21/24 Acetaminophen (Tylenol 8 Hour Arthritis) 650 Mg Tab, 650 MG PO TID, #30 TAB Prov:MOLINA DUFFY 10/13/22 Reported Medications Hydroxychloroquine Sulfate (PLAQUENIL) 200 Mg Tab, 1 TAB PO DAILY for 100 Days 02/07/24 Ferrous Sulfate (Ferosul) 325 Mg Tab, 325 MG PO for 50 Days, #100 02/07/24 Metoprolol Tartrate (Metoprolol Tartrate) 25 Mg Tab, 1 TAB PO BID for 100 Days 02/07/24 Prednisone (Prednisone) 5 Mg Tab, TAB PO UD for 33 Days, #100 02/07/24 Naproxen (NAPROSYN TABLET) 500 Mg Tb, 1 TAB PO BID for 15 Days, #30 02/07/24 Cephalexin (KEFLEX CAPSULE) 250 Mg Cp, 1 CAP PO TID for 10 Days, #30 02/07/24 Magnesium Oxide (MAGNESIUM OXIDE) 400 Mg Tab, 2 TAB PO BID for 25 Days, #100 02/15/23 Cyclobenzaprine HCl (Cyclobenzaprine Hydrochlo) 10 Mg Tab, 1 TAB PO BID for 50 Days, #100 02/15/23 Mupirocin (Pseudomonas Fluores (Mupirocin) 2 % Oin, 1 APPLIC TOP BID 02/15/23 Acetaminophen W/ Codeine (Acetaminophen/Codeine #2) 1 Tab Tab, 1 TAB PO Q6HPRN for pain 02/15/23 Metformin Hydrochloride (Metformin Hcl Er) 500 Mg Tab, 2 TAB PO BID 02/15/23 Cetirizine HCl (Cetirizine Hydrochloride) 10 Mg Tab, 1 TAB PO DAILY 02/15/23 Insulin NPH Isophane & Reg (Hu (Humulin 70/30 Kwikpen (70-30) 100 Unit/ml) 1 Inj Inj, 10 UNITS SC 02/15/23 Omeprazole (Cvs Omeprazole Odt) 20 Mg Tab, 40 MG PO DAILY Take 1 tablet by mouth daily 30 minutes before meal 02/15/23 Amlodipine Besylate (Amlodipine Besylate) 5 Mg Tab, 1 TAB PO DAILY 02/15/23 Current Medications Current Medications Medications (Trade) Dose Ordered Sig/Alisha Route PRN Reason Start Time Stop Time Status Last Admin Piperacillin Sod/ Tazobactam Sod 100 ml @ 25 mls/hr Q12HR IV 01/04/25 10:00 01/04/25 09:34 DC Vancomycin HCl 0 ml @ 0 mls/hr PER PHARMACY IV 01/04/25 04:15 01/04/25 09:51 DC Famotidine (Pepcid Injection) 20 mg DAILY IV 01/04/25 10:00 Diagnostic Test (Pha) (Accu-Chek Comfort Curve T) 1 strip IQ4HR 01/04/25 08:00 01/04/25 08:00 Insulin Human Regular (InsuLIN R) IQ4HR SC 01/04/25 08:00 01/04/25 09:15 Dextrose 50 ml UD PRN IV Blood Sugar LESS THAN 60 01/04/25 04:15 Sodium Chloride (Saline Lock Ns) 10 ml Q8HR IV 01/04/25 06:00 01/04/25 06:00 Acetaminophen/ Hydrocodone Bitart ([place] 5/325MG Tab) 1 tab Q4HP PRN PO MODERATE PAIN (4-6 PAIN SCALE) 01/04/25 04:15 Ondansetron HCl (Zofran) 4 mg Q4HP PRN IV NAUSEA / VOMITING 01/04/25 04:15 Docusate Sodium (Colace Capsule) 100 mg BIDPRN PRN PO FOR CONSTIPATION 01/04/25 04:15 Acetaminophen (Tylenol Tablet) 650 mg Q6HP PRN PO PAIN SCALE 1-3 OR TEMP>100.4 01/04/25 04:15 01/04/25 06:20 Midodrine (Proamatine Tablet) 10 mg TID@0600,1200,1800 PO 01/04/25 06:00 01/04/25 06:56 Nitroglycerin (Ntrostat Sublingual) 0.4 mg Q5MINP PRN SL FOR CHEST PAIN 01/04/25 05:15 Morphine Sulfate 2 mg Q30M PRN IV FOR CHEST PAIN 01/04/25 05:15 Norepinephrine Bitartrate 250 ml @ 3.75 mls/hr Q24H IV 01/04/25 08:15 01/04/25 08:15 Ceftriaxone Sodium 50 ml @ 100 mls/hr DAILY@09 IV 01/05/25 09:00 Vancomycin HCl 0 ml @ 0 mls/hr PER PHARMACY IV 01/04/25 09:30 Sodium Bicarbonate 50 ml/ Sodium Chloride 1,050 ml @ 100 mls/hr [id number] IV 01/04/25 09:45 Family History: FH: diabetes mellitus G8 FATHER Gout Review of Systems All 12 item review of systems reviewed with the patient nonsignificant except what is mentioned in the history of present illness H&P Exam Vital Signs/I&O Vital Sign Date Time Temp Pulse Resp B/P (MAP) Pulse Ox O2 Delivery O2 Flow Rate FiO2 01/04/25 09:00 100.5 105 20 74/42 (53) 99 100.5 01/04/25 06:00 Room Air* 0 21 Intake and Output 01/03/25 01/04/25 19:00 07:00 Intake Total 1000 ml Balance 1000 ml Intake IV Total 1000 ml Physical Exam Patient lying comfortably in bed appears in no acute distress Lungs clear to auscultation bilaterally Cardiac exam regular rate and rhythm GI soft nontender normal Extremities no clubbing cyanosis or edema Neuro nonfocal Labs/Diagnostic Data Labs/Diagnostic Data Laboratory Tests Test 01/04/25 08:21 01/04/25 07:10 01/04/25 04:55 01/04/25 01:20 Range/Units POC Glucose 140 H 70-106 mg/dl Urine Color Colorless Yellow Urine Clarity Turbid H Clear Urine pH 7.0 5.0-9.0 Urine Specific [place] 1.013 1.001-1.035 Urine Protein 1+ H Negative Urine Ketones Negative Negative Urine Blood 1+ H Negative /uL Urine Nitrite 1+ H Negative Urine Bilirubin Negative Negative Urine Urobilinogen Normal Negative mg/dL Urine Leukocyte Esterase 3+ Negative /uL Urine RBC 5 0 - 4 /hpf Urine WBC Clumps Present None Seen /hpf Urine Microscopic WBC 329 H 0-5 /HPF Urine Squamous Epithelial Cells Few <5 /hpf Urine Bacteria Few H None Seen /hpf Urine Glucose Normal Normal mg/dL White Blood Count 15.9 H 4.4-10.8 10^3/uL Red Blood Count 2.91 L 4.0-5.20 10^6/uL Hemoglobin 8.8 L 12.2-16.2 g/dL Hematocrit 27.7 L 36.0-46.0 % Mean Corpuscular Volume 94.9 80.0-100.0 fL Mean Corpuscular Hemoglobin 30.3 28.0-32.0 pg Mean Corpuscular Hemoglobin Concent 31.9 L 32.0-36.0 g/dL Red Cell Distribution Width 14.2 11.8-14.3 % Platelet Count 127 L 140-450 10^3/uL Mean Platelet Volume 8.3 6.9-10.8 fL Neutrophils (%) (Auto) 91.8 H 37.0-80.0 % Lymphocytes (%) (Auto) 2.7 L 10.0-50.0 % Monocytes (%) (Auto) 5.1 0.0-12.0 % Eosinophils (%) (Auto) 0.1 0.0-7.0 % Basophils (%) (Auto) 0.3 0.0-2.0 % Neutrophils # (Auto) 14.6 H 1.6-8.6 10 ^3/uL Lymphocytes # (Auto) 0.4 0.4-5.4 10 ^3/uL Monocytes # (Auto) 0.8 0-1.3 10 ^3/uL Eosinophils # (Auto) 0 0-0.8 10 ^3/uL Basophils # (Auto) 0 0-0.2 10 ^3/uL Nucleated Red Blood Cells 0.0 % Sodium Level 135 L 136-145 mmol/L Potassium Level 5.0 3.5-5.1 mmol/L Chloride Level 104 98-107 mmol/L Carbon Dioxide Level 17 L 20-31 mmol/L Anion Gap 14 5-15 Blood Urea Nitrogen 34 H 9-23 mg/dL Creatinine 3.68 H 0.550-1.02 mg/dL Glomerular Filtration Rate Calc 15 >90 mL/min BUN/Creatinine Ratio 9.2 L 10.0-20.0 Serum Glucose 147 H 74-106 mg/dL Hemoglobin A1c 6.4 H <5.7 % A1C Lactic Acid Level 3.0 *H 4.1 *H 0.4-2.0 mmol/L Uric Acid 7.1 3.1-7.8 mg/dL Calcium Level 8.1 L 8.7-10.4 mg/dL Phosphorus Level 3.0 2.4-5.1 mg/dL Magnesium Level 2.1 1.6-2.6 mg/dL Total Bilirubin 0.3 0.2-1.0 mg/dL Aspartate Amino Transferase (AST) 25 13-40 U/L Alanine Aminotransferase (ALT) 15 7-40 U/L Alkaline Phosphatase 100 46-116 U/L B-Type Natriuretic Peptide 29.27 0-100 pg/mL Total Protein 7.2 5.7-8.2 g/dL Albumin 3.9 3.2-4.8 g/dL Amylase Level 94 30-118 U/L Test 01/03/25 22:22 01/03/25 19:18 Range/Units Lactic Acid Level 3.0 *H 0.4-2.0 mmol/L White Blood Count 19.9 H 4.4-10.8 10^3/uL Red Blood Count 3.05 L 4.0-5.20 10^6/uL Hemoglobin 9.3 L 12.2-16.2 g/dL Hematocrit 28.9 L 36.0-46.0 % Mean Corpuscular Volume 94.7 80.0-100.0 fL Mean Corpuscular Hemoglobin 30.6 28.0-32.0 pg Mean Corpuscular Hemoglobin Concent 32.3 32.0-36.0 g/dL Red Cell Distribution Width 13.8 11.8-14.3 % Platelet Count 141 140-450 10^3/uL Mean Platelet Volume 8.3 6.9-10.8 fL Neutrophils (%) (Auto) 91.5 H 37.0-80.0 % Lymphocytes (%) (Auto) 1.8 L 10.0-50.0 % Monocytes (%) (Auto) 6.5 0.0-12.0 % Eosinophils (%) (Auto) 0.0 0.0-7.0 % Basophils (%) (Auto) 0.2 0.0-2.0 % Neutrophils # (Auto) 18.2 H 1.6-8.6 10 ^3/uL Lymphocytes # (Auto) 0.4 0.4-5.4 10 ^3/uL Monocytes # (Auto) 1.3 0-1.3 10 ^3/uL Eosinophils # (Auto) 0 0-0.8 10 ^3/uL Basophils # (Auto) 0 0-0.2 10 ^3/uL Nucleated Red Blood Cells 0.0 % Sodium Level 133 L 136-145 mmol/L Potassium Level 5.0 3.5-5.1 mmol/L Chloride Level 98 98-107 mmol/L Carbon Dioxide Level 21 20-31 mmol/L Anion Gap 14 5-15 Blood Urea Nitrogen 36 H 9-23 mg/dL Creatinine 5.00 H 0.550-1.02 mg/dL Glomerular Filtration Rate Calc 10 >90 mL/min BUN/Creatinine Ratio 7.2 L 10.0-20.0 Serum Glucose 118 H 74-106 mg/dL Calcium Level 10.1 8.7-10.4 mg/dL Assessment Acute kidney injury superimposed Chronic Kidney Disease secondary hemodynamic mediated Septic shock Urinary tract infection Diabetes mellitus type 2 Chronic systolic and diastolic Congestive heart failure Metabolic acidosis Dehydration Recommendations Closely monitor fluid and electrolytes Avoid nephrotoxic medications Vuong catheter Strict I&Os Check urine electrolytes and protein excretion Check kidney ultrasound IV fluids with bicarb IV antibiotics Insulin sliding scale IV pressors for blood pressure support We will continue to follow Patient seen and examined by myself. I discussed my plan of care with the patiocleman malik and the primary nurse at the bedside I would like to thank Shyam for the consult, will follow up Plan discussed with: Patient LAWRENCE TOM MD Jan 04, 2025 09:40
[2025-01-04] MEDS ORDERED: PIPERACILLIN-TAZOB 3.375GM 100 ML IV SCH (10:00)
[2025-01-04 10:20] LABS: Magnesium 2.1 mg/dL (1.6-2.6)
[2025-01-04 10:48] LABS: Protein, Urine 99.4 mg/dL (1-14)
--- NOTE | 2025-01-04 12:30 | DVHPN2 ---
Reviewed: H&P Changes from previous H/P or p: No Changes General: Per HPI Eyes: No Pain, No Vision change, No Conjunctivae inflammation, No Eyelid inflammation, No Other, No Redness ENT: No Ear pain, No Ear discharge, No Nose pain, No Nose discharge, No Nose congestion, No Mouth pain, No Mouth swelling, No Throat pain, No Throat swelling, No Other Cardiovascular: No Chest Pain, No Palpitations, No Orthopnea, No Paroxysmal Noc. Dyspnea, No Edema, No Lt Headedness, No Other Respiratory: No Cough, No Dry, No Shortness of breath, No SOB with excertion, No Wheezing, No Hemoptysis, No Pleuritic Pain, No Sputum, No Other Gastrointestinal: No Nausea, No Vomiting, No Abdominal Pain, No Diarrhea, No Constipation, No Melena, No Hematochezia, No Other Genitourinary: No Dysuria, No Frequency, No Incontinence, No Hematuria, No Retention, No Other Musculoskeletal: No other, No neck pain, No shoulder pain, No arm pain, No back pain, No hand pain, No leg pain, No foot pain Skin: No Rash, No Lesions, No Jaundice, No Bruising, No Other Objective Vitals Vital Signs Date Time Temp Pulse Resp B/P (MAP) Pulse Ox O2 Delivery O2 Flow Rate FiO2 01/04/25 09:00 100.5 105 20 74/42 (53) 99 100.5 01/04/25 06:00 Room Air* 0 21 Intake/Output Intake and Output 01/04/25 07:00 Intake Total 1000 ml Balance 1000 ml Intake IV Total 1000 ml Exam GEN: Healthy appearing, well-developed, NAD. HEENT: NC/AT; MMM. Bilateral cheek rash CV: RRR, no m/r/g. LUNGS: Rales bilaterally ABD: Soft, NT/ND, hypoactive bowel sounds, no masses or organomegaly. EXT: skin Warm, well perfused. no rashes. No clubbing, cyanosis, or edema. NEURO: Ambulating with no limitations. No focal deficits. Medications Current Medications Medications Dose Ordered Sig/Alisha Route Start Time Stop Time Status Last Admin Dose Admin Famotidine 20 mg DAILY IV 01/04/25 10:00 Diagnostic Test (Pha) 1 strip IQ4HR 01/04/25 08:00 01/04/25 08:00 1 STRIP Insulin Human Regular IQ4HR SC 01/04/25 08:00 01/04/25 09:15 2 UNITS Dextrose 50 ml UD PRN IV 01/04/25 04:15 Sodium Chloride 10 ml Q8HR IV 01/04/25 06:00 01/04/25 06:00 10 ML Acetaminophen/ Hydrocodone Bitart 1 tab Q4HP PRN PO 01/04/25 04:15 Ondansetron HCl 4 mg Q4HP PRN IV 01/04/25 04:15 Docusate Sodium 100 mg BIDPRN PRN PO 01/04/25 04:15 Acetaminophen 650 mg Q6HP PRN PO 01/04/25 04:15 01/04/25 06:20 650 MG Midodrine 10 mg TID@0600,1200,1800 PO 01/04/25 06:00 01/04/25 06:56 10 MG Nitroglycerin 0.4 mg Q5MINP PRN SL 01/04/25 05:15 Morphine Sulfate 2 mg Q30M PRN IV 01/04/25 05:15 Norepinephrine Bitartrate 250 ml @ 3.75 mls/hr Q24H IV 01/04/25 08:15 01/04/25 08:15 3.75 MLS/HR Ceftriaxone Sodium 50 ml @ 100 mls/hr DAILY@09 IV 01/05/25 09:00 Vancomycin HCl 0 ml @ 0 mls/hr PER PHARMACY IV 01/04/25 09:30 Sodium Bicarbonate 50 ml/ Sodium Chloride 1,050 ml @ 100 mls/hr [id number] IV 01/04/25 09:45 Cefepime HCl 50 ml @ 12.5 mls/hr DAILY IV 01/05/25 10:00 UNV Metronidazole 100 ml @ 100 mls/hr Q8HR IV 01/04/25 14:00 UNV Doxycycline Hyclate 100 ml @ 50 mls/hr Q12H IV 01/04/25 12:00 UNV Hydrocortisone Sodium Succinate 100 mg Q12HR IV 01/04/25 22:00 UNV Laboratory Results Laboratory Tests 01/04/25 04:55 Chemistry Test 01/03/25 19:18 01/04/25 04:55 Calcium Level 10.1 mg/dL (8.7-10.4) 8.1 mg/dL (8.7-10.4) L Albumin 3.9 g/dL (3.2-4.8) Magnesium Level 2.1 mg/dL (1.6-2.6) Phosphorus Level 3.0 mg/dL (2.4-5.1) Total Protein 7.2 g/dL (5.7-8.2) Cardiac Markers Test 01/04/25 04:55 B-Type Natriuretic Peptide 29.27 pg/mL (0-100) LFT Test 01/04/25 04:55 Alanine Aminotransferase (ALT) 15 U/L (7-40) Alkaline Phosphatase 100 U/L (46-116) Aspartate Amino Transferase (AST) 25 U/L (13-40) Total Bilirubin 0.3 mg/dL (0.2-1.0) HgA1c, TSH Test 01/04/25 04:55 Hemoglobin A1c 6.4 % A1C (<5.7) H Urinalysis Test 01/04/25 07:10 Urine Color Colorless (Yellow) Urine Clarity Turbid (Clear) H Urine pH 7.0 (5.0-9.0) Urine Specific [place] 1.013 (1.001-1.035) Urine Protein 1+ (Negative) H Urine Ketones Negative (Negative) Urine Blood 1+ /uL (Negative) H Urine Nitrite 1+ (Negative) H Urine Bilirubin Negative (Negative) Urine Urobilinogen Normal mg/dL (Negative) Urine Leukocyte Esterase 3+ /uL (Negative) Urine RBC 5 /hpf (0 - 4) Urine WBC Clumps Present /hpf (None Seen) Urine Microscopic WBC 329 /HPF (0-5) H Urine Squamous Epithelial Cells Few /hpf (<5) Urine Bacteria Few /hpf (None Seen) H Urine Creatinine 97.84 mg/dL (30.0-125.0) Urine Protein/Creatinine Ratio 1.02 Urine Sodium 92 mmol/L (40-220) Urine Glucose Normal mg/dL (Normal) Urine Total Protein 99.4 mg/dL (1-14) H Microbiology Microbiology Date/Time Source Procedure Growth Status 01/03/25 22:22 Blood Blood Culture - Preliminary Resulted Labs and/or images reviewed: Labs reviewed by me, Image(s) reviewed by me Assessment/Plan Assessment/Plan 44-year-old female with past medical history of CHF and diabetes mellitus who presented to [facility] ED with complaint of generalized weakness for the past 3 days. Patient reports she has been experiencing generalized weakness, associated with fatigue, unable to get out of bed, getting worse that prompted this visit. She had home health nurse come out in the morning today to assess her chronic foot wound on the right. 01/04: here for sepsis. source pneumonia vs uti versus gastroenteritis. Patient could also be having flare-up of SLE, has LALA could be lupus nephritis, getting labs C3-C4 ESR CRP. Patient is seen Levophed, putting a central line left EJ, puitting in right IJ. Starting broad-spectrum cefepime, doxycycline, Flagyl,. Continue home Plaquenil. If concern for lupus flare continues we will start Solu-Medrol. Otherwise continue home meds. Patient has positive blood culture Gram-negative rods, repeat blood culture. diagnosis: Sepsis, unspecified organism Severe sepsis with septic shock, requiring vasopressor support Pneumonia, Gram-negative Gram-positive possible UTI acute cystitis Gastroenteritis possible, infectious etiology likely Acute kidney failure, unspecified, rule out lupus nephritis Type 2 diabetes mellitus with hyperglycemia Generalized weakness History SLE, rule out SLE flare Ruled out lupus nephritis Plan: Vasopressor support maintain map more than 60 Continue to follow up labs daily Continue broad-spectrum antibiotics cefepime doxycycline Flagyl Continue home meds Plaquenil Appreciate nephrology follow up Plan discussed with: Patient, Other My Orders Orders - CELINA JIMENEZ MD Procedure Category Date Status Time Cefepime 1gm/50ml PHA 01/05/25 Logged (Maxipime 1gm/50ml) 10:00 Metronidazole PHA 01/04/25 Logged 500mg/100ml (Flagyl 14:00 Doxycycline PHA 01/04/25 Logged 100mg/100ml 12:00 Blood Culture KALIA 01/04/25 Logged 11:54 Complement C3 LAB 01/04/25 Logged 11:54 Complement C4 LAB 01/04/25 Logged 11:54 Erythrocyte LAB 01/04/25 Logged Sedimentation Rate 11:54 Lactic Acid W/ Reflex LAB 01/04/25 Logged Order 11:54 Hydrocortisone PHA 01/04/25 Logged Succinate Inj 22:00 C-Reactive Protein LAB 01/04/25 In Process 12:06 Date of Service: Jan 04, 2025 Billing Provider: CELINA JIMENEZ MD Common Visit Codes: [id number] CARE 30-74 MIN CELINA JIMENEZ MD Jan 04, 2025 12:30
--- NOTE | 2025-01-04 13:12 | DVH ---
CHEST RADIOGRAPH Indication: Central line placement Technique: Single frontal view of the chest was obtained Comparison: XY CHEST PORTABLE on DOS: 02/07/24, XY CHEST PORTABLE on DOS: 02/17/23, XY CHEST PORTABLE on DOS: 02/15/23 FINDINGS: Lines and Tubes: None Lungs: No focal consolidation. Pleura: No effusion. No pneumothorax. Cardiomediastinal contours: Unremarkable Bones: No acute osseous abnormality. IMPRESSION: 1. Right internal jugular catheter in place with the tip at the cavoatrial junction.
[2025-01-04] MEDS: FAMOTIDINE (10MG/ML) 2ML VL IV SCH (13:45)
[2025-01-04] MEDS: DOXYCYCLINE 100MG/100ML 100 ML IV SCH (13:53)
[2025-01-04] MEDS: SODIUM BICARB 50mEq/50ml Vial 50 ML in SOD CHL 0.45% 1,000 ML IV SCH (14:48)
[2025-01-04 19:15] VITALS: PULSE 114; RESP 30; O2SAT 94
[2025-01-04] MEDS: ONDANSETRON HCL 4 MG/2 ML VIAL IV PRN (20:09)
[2025-01-04] MEDS: DEXTROSE (50%) 50ML SYRG IV PRN (21:15)
[2025-01-04] MEDS: HYDROCORTISONE SOD SUCC 100 MG/2ML INJ VIAL IV SCH (22:45)
[2025-01-04 23:00] VITALS: BP 135/79; PULSE 81; RESP 17; TEMP 98.1; O2SAT 100
[2025-01-05 03:05] LABS: Hematocrit 24.2 % (36.0-46.0); Hemoglobin 8.0 g/dL (12.2-16.2); Mean Corpuscular Hemoglobin 30.5 pg (28.0-32.0); Mean Corpuscular Volume 92.2 fL (80.0-100.0)
[2025-01-05 03:19] LABS: Alanine Aminotransferase 14 U/L (7-40); Albumin 3.3 g/dL (3.2-4.8); Alkaline Phosphatase 86 U/L (46-116); Anion Gap 11 (5-15); BUN/Creatinine Ratio 15.1 (10.0-20.0); Carbon Dioxide 21 mmol/L (20-31); Chloride 105 mmol/L (98-107); Glucose 105 mg/dL (74-106); Potassium 4.1 mmol/L (3.5-5.1); Sodium 137 mmol/L (136-145); Total Protein 6.3 g/dL (5.7-8.2)
[2025-01-05 03:20] LABS: Bilirubin, Total 0.4 mg/dL (0.2-1.0)
[2025-01-05 03:23] LABS: Blood Urea Nitrogen 24 mg/dL (9-23); Calcium 8.3 mg/dL (8.7-10.4)
[2025-01-05 03:34] VITALS: PULSE 117; RESP 27; O2SAT 96
[2025-01-05 07:30] VITALS: PULSE 132; RESP 19; O2SAT 92
[2025-01-05 07:44] LABS: RBC Morphology Normal; Total Cells Counted 100.0 (100)
--- NOTE | 2025-01-05 10:28 | DVHPN2 ---
Progress Note Date Seen: Jan 05, 2025 Medical Necessity Reason Pt with a Central, PICC or Fol: No Subjective Patient reports: Feels better Other Systems: Patient seen and examined by myself today in follow-up Objective vital signs Vital Sign Date Time Temp Pulse Resp B/P (MAP) Pulse Ox O2 Delivery O2 Flow Rate FiO2 01/05/25 09:00 121 20 133/61 (85) 95 01/05/25 07:30 Room Air* 0 21 01/05/25 07:30 100.4 100.4 Total Intake and Output 01/04/25 01/04/25 01/05/25 14:59 22:59 06:59 Intake Total 300 ml 800 ml Output Total 950 ml Balance -650 ml 800 ml medications Current Medications Medications Dose Ordered Sig/Alisha Route Start Time Stop Time Status Last Admin Dose Admin Famotidine 20 mg DAILY IV 01/04/25 10:00 01/04/25 13:45 20 MG Diagnostic Test (Pha) 1 strip IQ4HR 01/04/25 08:00 01/05/25 08:00 1 STRIP Insulin Human Regular IQ4HR SC 01/04/25 08:00 01/04/25 09:15 2 UNITS Dextrose 50 ml UD PRN IV 01/04/25 04:15 01/05/25 00:43 50 ML Sodium Chloride 10 ml Q8HR IV 01/04/25 06:00 01/05/25 06:54 10 ML Acetaminophen/ Hydrocodone Bitart 1 tab Q4HP PRN PO 01/04/25 04:15 Ondansetron HCl 4 mg Q4HP PRN IV 01/04/25 04:15 01/04/25 20:09 4 MG Docusate Sodium 100 mg BIDPRN PRN PO 01/04/25 04:15 Acetaminophen 650 mg Q6HP PRN PO 01/04/25 04:15 01/04/25 18:39 650 MG Midodrine 10 mg TID@0600,1200,1800 PO 01/04/25 06:00 01/05/25 06:54 10 MG Nitroglycerin 0.4 mg Q5MINP PRN SL 01/04/25 05:15 Morphine Sulfate 2 mg Q30M PRN IV 01/04/25 05:15 Norepinephrine Bitartrate 250 ml @ 3.75 mls/hr Q24H IV 01/04/25 08:15 01/04/25 08:15 3.75 MLS/HR Sodium Bicarbonate 50 ml/ Sodium Chloride 1,050 ml @ 100 mls/hr [id number] IV 01/04/25 09:45 01/05/25 02:01 100 MLS/HR Cefepime HCl 50 ml @ 12.5 mls/hr DAILY IV 01/05/25 10:00 Metronidazole 100 ml @ 100 mls/hr Q8HR IV 01/04/25 14:00 01/04/25 22:45 100 MLS/HR Doxycycline Hyclate 100 ml @ 50 mls/hr Q12H IV 01/04/25 12:00 01/05/25 00:33 50 MLS/HR Hydrocortisone Sodium Succinate 100 mg Q12HR IV 01/04/25 22:00 Hydroxychloroquine Sulfate 200 mg DAILY PO 01/05/25 10:00 Examination: LUNGS:Normal, CVS:Normal, MSK:Normal laboratory and microbiology Laboratory Tests 01/05/25 02:23 Test 01/05/25 02:23 Range/Units Serum Glucose 105 74-106 mg/dL Microbiology Date/Time Source Procedure Growth Status 01/04/25 10:47 Urine - [place] Urine Culture - Preliminary Resulted 01/03/25 22:22 Blood Blood Culture - Preliminary Resulted Problem List/Assessment/Plan Problem List/Assessment/Plan Acute kidney injury superimposed Chronic Kidney Disease secondary hemodynamic mediated 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
[2025-01-05] MEDS: CEFEPIME 1GM/50ML 50 ML IV SCH (10:33)
--- NOTE | 2025-01-05 11:05 | DVHSR ---
APPROVED REPORT EXAM: Two-dimensional and M-mode echocardiogram with Doppler and color Doppler. Blood Pressure: 74/42 mmHg INDICATION CHF Sepsis RISK FACTORS Height: 5' 1", Weight: 161 DIMENSIONS LVDd 4.1 (3.8-5.7cm) LA (2D) 3.3 (1.9-4.0cm) Aortic Root 2.9 (2.0-3.7cm) LVDs 2.9 (2.5-4.0cm) LA (MM) (1.9-4.0cm) Aortic Cusp Exc 1.3 (1.5-2.0cm) EF (%) 55.0 (55-70%) Rt. Atrium 3.6 (1.9-4.0cm) Asc. Aorta cm IVSd 0.8 (0.7-1.1cm) RV (D) (1.8-2.4cm) PWd 0.8 (0.7-1.1cm) Mitral Valve Mitral Mitral Stenosis E wave 1.30m/s MV Mean GR. mmHg A wave 1.10m/s MV Peak GR. mmHg E/A ratio 1.2 2D MVA cm2 Aortic Valve Aortic Valve Aortic Stenosis V1 1.00m/s AO Mean GR. 8mmHg V2 1.90m/s AO Peak GR. 16mmHg LVOT Diameter 1.9 (1.8-2.4cm) Doppler RAMIRO 1.49cm2 AI P 1/2 Time 280.31ms Pulmonic Valve V2 0.80m/s Tricuspid Valve TR Velocity 2.60m/s RVSP 35mmHg Conclusion EF 50-55% MILD AI
--- NOTE | 2025-01-05 15:53 | DVHPN2 ---
Reviewed: H&P Changes from previous H/P or p: No Changes (On the room 105) General: Per HPI Eyes: No Pain, No Vision change, No Conjunctivae inflammation, No Eyelid inflammation, No Other, No Redness ENT: No Ear pain, No Ear discharge, No Nose pain, No Nose discharge, No Nose congestion, No Mouth pain, No Mouth swelling, No Throat pain, No Throat swelling, No Other Cardiovascular: No Chest Pain, No Palpitations, No Orthopnea, No Paroxysmal Noc. Dyspnea, No Edema, No Lt Headedness, No Other Respiratory: No Cough, No Dry, No Shortness of breath, No SOB with excertion, No Wheezing, No Hemoptysis, No Pleuritic Pain, No Sputum, No Other Gastrointestinal: No Nausea, No Vomiting, No Abdominal Pain, No Diarrhea, No Constipation, No Melena, No Hematochezia, No Other Genitourinary: No Dysuria, No Frequency, No Incontinence, No Hematuria, No Retention, No Other Musculoskeletal: No other, No neck pain, No shoulder pain, No arm pain, No back pain, No hand pain, No leg pain, No foot pain Skin: No Rash, No Lesions, No Jaundice, No Bruising, No Other Objective Vitals Vital Signs Date Time Temp Pulse Resp B/P (MAP) Pulse Ox O2 Delivery O2 Flow Rate FiO2 01/05/25 15:21 97 22 122/77 (92) 97 01/05/25 11:27 99.6 99.6 01/05/25 07:30 Room Air* 0 21 Intake/Output Intake and Output 01/05/25 07:00 Intake Total 1100 ml Output Total 950 ml Balance 150 ml Intake IV Total 1100 ml Output Urine Total 800 ml Emesis 150 ml Exam GEN: Healthy appearing, well-developed, NAD. HEENT: NC/AT; MMM. Bilateral cheek rash CV: RRR, no m/r/g. LUNGS: Rales bilaterally ABD: Soft, NT/ND, hypoactive bowel sounds, no masses or organomegaly. EXT: skin Warm, well perfused. no rashes. No clubbing, cyanosis, or edema. NEURO: Ambulating with no limitations. No focal deficits. Medications Current Medications Medications Dose Ordered Sig/Alisha Route Start Time Stop Time Status Last Admin Dose Admin Famotidine 20 mg DAILY IV 01/04/25 10:00 01/05/25 10:34 20 MG Diagnostic Test (Pha) 1 strip IQ4HR 01/04/25 08:00 01/05/25 12:15 1 STRIP Insulin Human Regular IQ4HR SC 01/04/25 08:00 01/04/25 09:15 2 UNITS Dextrose 50 ml UD PRN IV 01/04/25 04:15 01/05/25 00:43 50 ML Sodium Chloride 10 ml Q8HR IV 01/04/25 06:00 01/05/25 14:10 10 ML Acetaminophen/ Hydrocodone Bitart 1 tab Q4HP PRN PO 01/04/25 04:15 Ondansetron HCl 4 mg Q4HP PRN IV 01/04/25 04:15 01/04/25 20:09 4 MG Docusate Sodium 100 mg BIDPRN PRN PO 01/04/25 04:15 Acetaminophen 650 mg Q6HP PRN PO 01/04/25 04:15 01/04/25 18:39 650 MG Midodrine 10 mg TID@0600,1200,1800 PO 01/04/25 06:00 01/05/25 12:07 10 MG Nitroglycerin 0.4 mg Q5MINP PRN SL 01/04/25 05:15 Morphine Sulfate 2 mg Q30M PRN IV 01/04/25 05:15 Norepinephrine Bitartrate 250 ml @ 3.75 mls/hr Q24H IV 01/04/25 08:15 01/04/25 08:15 3.75 MLS/HR Sodium Bicarbonate 50 ml/ Sodium Chloride 1,050 ml @ 100 mls/hr [id number] IV 01/04/25 09:45 01/05/25 15:00 100 MLS/HR Cefepime HCl 50 ml @ 12.5 mls/hr DAILY IV 01/05/25 10:00 01/05/25 10:33 12.5 MLS/HR Metronidazole 100 ml @ 100 mls/hr Q8HR IV 01/04/25 14:00 01/05/25 14:10 100 MLS/HR Doxycycline Hyclate 100 ml @ 50 mls/hr Q12H IV 01/04/25 12:00 01/05/25 12:15 50 MLS/HR Hydrocortisone Sodium Succinate 100 mg Q12HR IV 01/04/25 22:00 01/05/25 10:47 100 MG Hydroxychloroquine Sulfate 200 mg DAILY PO 01/05/25 10:00 01/05/25 10:33 200 MG Laboratory Results Laboratory Tests 01/05/25 02:23 Chemistry Test 01/05/25 02:23 Albumin 3.3 g/dL (3.2-4.8) Calcium Level 8.3 mg/dL (8.7-10.4) L Total Protein 6.3 g/dL (5.7-8.2) LFT Test 01/05/25 02:23 Alanine Aminotransferase (ALT) 14 U/L (7-40) Alkaline Phosphatase 86 U/L (46-116) Aspartate Amino Transferase (AST) 26 U/L (13-40) Total Bilirubin 0.4 mg/dL (0.2-1.0) Urinalysis Test 01/04/25 07:10 Urine Color Colorless (Yellow) Urine Clarity Turbid (Clear) H Urine pH 7.0 (5.0-9.0) Urine Specific [place] 1.013 (1.001-1.035) Urine Protein 1+ (Negative) H Urine Ketones Negative (Negative) Urine Blood 1+ /uL (Negative) H Urine Nitrite 1+ (Negative) H Urine Bilirubin Negative (Negative) Urine Urobilinogen Normal mg/dL (Negative) Urine Leukocyte Esterase 3+ /uL (Negative) Urine RBC 5 /hpf (0 - 4) Urine WBC Clumps Present /hpf (None Seen) Urine Microscopic WBC 329 /HPF (0-5) H Urine Squamous Epithelial Cells Few /hpf (<5) Urine Bacteria Few /hpf (None Seen) H Urine Creatinine 97.84 mg/dL (30.0-125.0) Urine Protein/Creatinine Ratio 1.02 Urine Sodium 92 mmol/L (40-220) Urine Glucose Normal mg/dL (Normal) Urine Total Protein 99.4 mg/dL (1-14) H Microbiology Microbiology Date/Time Source Procedure Growth Status 01/04/25 10:47 Urine - [place] Urine Culture - Preliminary Resulted 01/03/25 22:22 Blood Blood Culture - Preliminary Resulted Labs and/or images reviewed: Labs reviewed by me (5 renal 5), Image(s) reviewed by me Assessment/Plan Assessment/Plan Getting better 44-year-old female with past medical history of CHF and diabetes mellitus who presented to [facility] ED with complaint of generalized weakness for the past 3 days. Patient reports she has been experiencing generalized weakness, associated with fatigue, unable to get out of bed, getting worse that prompted this visit. She had home health nurse come out in the morning today to assess her chronic foot wound on the right. 01/04: here for sepsis. source pneumonia vs uti versus gastroenteritis. Patient could also be having flare-up of SLE, has LALA could be lupus nephritis, getting labs C3-C4 ESR CRP. Patient is seen Levophed, putting a central line left EJ, puitting in right IJ. Starting broad-spectrum cefepime, doxycycline, Flagyl,. Continue home Plaquenil. If concern for lupus flare continues we will start Solu-Medrol. Otherwise continue home meds. Patient has positive blood culture Gram-negative rods, repeat blood culture. 01/05: Blood culture positive Gram-negative arlen, urine culture positive but only more than 20 K Gram-negative arlen, likely urosepsis. But also has right foot wound, could be diabetic foot possible source, we will get right foot CT non-con to eval. Wound Care onboard, no need for podiatry at this time unless is osteomyelitis., We will rule out osteomyelitis. ESR CRP significant elevation, patient remains on hydrocortisone injection to keep her out of shock, patient has been off of Levophed for 24 hour, we will deescalate care for telemetry. Source could be foot versus urine. Patient has SLE has malar rash, ESR CRP elevated could also have if lupus flare-up, we will start Solu-Medrol, nephrology onboard. Continue current management, repeat blood cultures. Continue cefepime/doxy/Flagyl. Starting Solu-Medrol 40 IV b.i.d. diagnosis: Sepsis, unspecified organism Severe sepsis with septic shock, requiring vasopressor support History of SLE, SLE flare-up, in acute exacerbation likely Rule out lupus nephritis Pneumonia, Gram-negative Gram-positive possible UTI acute cystitis Gastroenteritis possible, infectious etiology likely Acute kidney failure, unspecified, rule out lupus nephritis Type 2 diabetes mellitus with hyperglycemia Generalized weakness Plan: Vasopressor support maintain map more than 60 , off vasopressors Continue to follow up labs daily Continue broad-spectrum antibiotics cefepime doxycycline Flagyl Continue home meds Plaquenil Appreciate nephrology follow up Deescalate care to telemetry D OU Full code Plan discussed with: Patient My Orders Orders - CELINA JIMENEZ MD Procedure Category Date Status Time Transfer Orders XFER 01/04/25 Transmitted 16:14 Hydroxychloroquine PHA 01/05/25 In Process Tablet (Plaquenil Tab 10:00 Apply: JOSELYN 01/05/25 In Process 10:05 Blood Culture KALIA 01/05/25 Logged 15:42 Abg W/ Co-Ox RT 01/05/25 Logged 15:42 Ct R Foot Wo Contrast CT 01/05/25 Logged 15:42 Date of Service: Jan 05, 2025 Billing Provider: CELINA JIMENEZ MD Common Visit Codes: [id number] CARE 30-74 MIN CELINA JIMENEZ MD Jan 05, 2025 15:53
--- NOTE | 2025-01-05 16:53 | DVH ---
EXAM: CT CT R FOOT WO CONTRAST INDICATION: TOE WOUND TECHNIQUE: Axial images of right foot without contrast have been obtained along with coronal and sagittal reformatted images. All CT scans at this facility use dose modulation, iterative reconstruction, and/or weight based dosing when appropriate to reduce radiation dose to as low as reasonably achievable. COMPARISON: None FINDINGS: BONES: Transversely oriented distal tuft/ distal phalangeal fracture of the great toe. Finding likely pathologic in association with overlying soft tissue ulceration and maintain elevated concern for osteomyelitis clawtoe deformities. MUSCLES: No abnormal attenuation. JOINT SPACES: No joint effusion. TENDONS/LIGAMENTS: Intact. OTHER: None. IMPRESSION: 1. Transversely oriented distal tuft/ distal phalangeal fracture of the great toe. 2. Finding likely pathologic in association with overlying soft tissue ulceration and maintain elevated concern for osteomyelitis.
[2025-01-05 22:15] VITALS: PULSE 85; RESP 18; O2SAT 100
[2025-01-05] MEDS: methylPREDNISolone SOD SUCC 40 MG/ML VL IV SCH (22:29)
[2025-01-05 22:47] VITALS: BP 110/64; PULSE 66; RESP 17; TEMP 98.7; O2SAT 97
[2025-01-06] VITALS (8 sets, daily range): BP systolic 109–155; BP diastolic 66–90; PULSE 75–88; RESP 15–18; TEMP 97.7–98.4; O2SAT 98–100
[2025-01-06] MEDS ORDERED: SPIR25TA8 PO (00:02)
[2025-01-06] MEDS ORDERED: LISI10TA34 PO (00:02)
[2025-01-06] MEDS ORDERED: METO200T42 PO (00:02)
[2025-01-06] MEDS ORDERED: ASPI-325 PO (00:02)
[2025-01-06] MEDS ORDERED: MYCO500T3 PO (00:02)
[2025-01-06] MEDS ORDERED: GAB100C PO (00:02)
[2025-01-06] MEDS ORDERED: GLIP2.5T9 PO (00:02)
[2025-01-06] MEDS ORDERED: ATOR10TA52 PO (00:02)
[2025-01-06 06:02] LABS: Hemoglobin 8.4 g/dL (12.2-16.2); Nucleated Red Blood Cells % 0.0 %
[2025-01-06 06:05] LABS: Hematocrit 24.5 % (36.0-46.0); Mean Corpuscular Hemoglobin 31.2 pg (28.0-32.0); Mean Corpuscular Volume 91.0 fL (80.0-100.0)
[2025-01-06 06:27] LABS: Alanine Aminotransferase 12 U/L (7-40); Albumin 3.4 g/dL (3.2-4.8); Alkaline Phosphatase 76 U/L (46-116); Anion Gap 9 (5-15); BUN/Creatinine Ratio 16.2 (10.0-20.0); Bilirubin, Total 0.5 mg/dL (0.2-1.0); Blood Urea Nitrogen 19 mg/dL (9-23); Carbon Dioxide 23 mmol/L (20-31); Chloride 103 mmol/L (98-107); Potassium 4.2 mmol/L (3.5-5.1); Total Protein 6.3 g/dL (5.7-8.2)
[2025-01-06 06:30] LABS: Sodium 135 mmol/L (136-145)
[2025-01-06 06:31] LABS: Calcium 8.4 mg/dL (8.7-10.4); Glucose 182 mg/dL (74-106)
--- NOTE | 2025-01-06 15:44 | DVHPN2 ---
Reviewed: H&P Changes from previous H/P or p: No Changes General: Per HPI Eyes: No Pain, No Vision change, No Conjunctivae inflammation, No Eyelid inflammation, No Other, No Redness ENT: No Ear pain, No Ear discharge, No Nose pain, No Nose discharge, No Nose congestion, No Mouth pain, No Mouth swelling, No Throat pain, No Throat swelling, No Other Cardiovascular: No Chest Pain, No Palpitations, No Orthopnea, No Paroxysmal Noc. Dyspnea, No Edema, No Lt Headedness, No Other Respiratory: No Cough, No Dry, No Shortness of breath, No SOB with excertion, No Wheezing, No Hemoptysis, No Pleuritic Pain, No Sputum, No Other Gastrointestinal: No Nausea, No Vomiting, No Abdominal Pain, No Diarrhea, No Constipation, No Melena, No Hematochezia, No Other Genitourinary: No Dysuria, No Frequency, No Incontinence, No Hematuria, No Retention, No Other Musculoskeletal: No other, No neck pain, No shoulder pain, No arm pain, No back pain, No hand pain, No leg pain, No foot pain Skin: No Rash, No Lesions, No Jaundice, No Bruising, No Other Objective Vitals Vital Signs Date Time Temp Pulse Resp B/P (MAP) Pulse Ox O2 Delivery O2 Flow Rate FiO2 01/06/25 12:54 97.9 75 16 115/75 (88) 98 97.9 01/06/25 08:00 Room Air* 0 21 Intake/Output Intake and Output 01/06/25 07:00 Intake Total 3150.0 ml Output Total 1400 ml Balance 1750.0 ml Intake Oral 500 ml IV Total 2650.0 ml Output Urine Total 1400 ml Exam GEN: Healthy appearing, well-developed, NAD. HEENT: NC/AT; MMM. Bilateral cheek rash CV: RRR, no m/r/g. LUNGS: Rales bilaterally ABD: Soft, NT/ND, hypoactive bowel sounds, no masses or organomegaly. EXT: skin Warm, well perfused. no rashes. No clubbing, cyanosis, or edema. NEURO: Ambulating with no limitations. No focal deficits. Medications Current Medications Medications Dose Ordered Sig/Alisha Route Start Time Stop Time Status Last Admin Dose Admin Famotidine 20 mg DAILY IV 01/04/25 10:00 01/06/25 09:59 20 MG Diagnostic Test (Pha) 1 strip IQ4HR 01/04/25 08:00 01/06/25 13:09 1 STRIP Insulin Human Regular IQ4HR SC 01/04/25 08:00 01/06/25 13:08 3 UNITS Dextrose 50 ml UD PRN IV 01/04/25 04:15 01/05/25 00:43 50 ML Sodium Chloride 10 ml Q8HR IV 01/04/25 06:00 01/06/25 14:03 10 ML Acetaminophen/ Hydrocodone Bitart 1 tab Q4HP PRN PO 01/04/25 04:15 Ondansetron HCl 4 mg Q4HP PRN IV 01/04/25 04:15 01/04/25 20:09 4 MG Docusate Sodium 100 mg BIDPRN PRN PO 01/04/25 04:15 Acetaminophen 650 mg Q6HP PRN PO 01/04/25 04:15 01/04/25 18:39 650 MG Midodrine 10 mg TID@0600,1200,1800 PO 01/04/25 06:00 01/06/25 12:26 10 MG Nitroglycerin 0.4 mg Q5MINP PRN SL 01/04/25 05:15 Morphine Sulfate 2 mg Q30M PRN IV 01/04/25 05:15 Sodium Bicarbonate 50 ml/ Sodium Chloride 1,050 ml @ 100 mls/hr [id number] IV 01/04/25 09:45 01/06/25 04:07 100 MLS/HR Cefepime HCl 50 ml @ 12.5 mls/hr DAILY IV 01/05/25 10:00 01/06/25 09:58 12.5 MLS/HR Metronidazole 100 ml @ 100 mls/hr Q8HR IV 01/04/25 14:00 01/06/25 13:56 100 MLS/HR Doxycycline Hyclate 100 ml @ 50 mls/hr Q12H IV 01/04/25 12:00 01/06/25 12:26 50 MLS/HR Hydroxychloroquine Sulfate 200 mg DAILY PO 01/05/25 10:00 01/06/25 09:59 200 MG Methylprednisolone Sodium Succinate 40 mg BID IV 01/05/25 22:00 01/06/25 09:58 40 MG Laboratory Results Laboratory Tests 01/06/25 05:42 Chemistry Test 01/06/25 05:42 Albumin 3.4 g/dL (3.2-4.8) Calcium Level 8.4 mg/dL (8.7-10.4) L Total Protein 6.3 g/dL (5.7-8.2) LFT Test 01/06/25 05:42 Alanine Aminotransferase (ALT) 12 U/L (7-40) Alkaline Phosphatase 76 U/L (46-116) Aspartate Amino Transferase (AST) 19 U/L (13-40) Total Bilirubin 0.5 mg/dL (0.2-1.0) Urinalysis Test 01/04/25 07:10 Urine Color Colorless (Yellow) Urine Clarity Turbid (Clear) H Urine pH 7.0 (5.0-9.0) Urine Specific [place] 1.013 (1.001-1.035) Urine Protein 1+ (Negative) H Urine Ketones Negative (Negative) Urine Blood 1+ /uL (Negative) H Urine Nitrite 1+ (Negative) H Urine Bilirubin Negative (Negative) Urine Urobilinogen Normal mg/dL (Negative) Urine Leukocyte Esterase 3+ /uL (Negative) Urine RBC 5 /hpf (0 - 4) Urine WBC Clumps Present /hpf (None Seen) Urine Microscopic WBC 329 /HPF (0-5) H Urine Squamous Epithelial Cells Few /hpf (<5) Urine Bacteria Few /hpf (None Seen) H Urine Creatinine 97.84 mg/dL (30.0-125.0) Urine Protein/Creatinine Ratio 1.02 Urine Sodium 92 mmol/L (40-220) Urine Glucose Normal mg/dL (Normal) Urine Total Protein 99.4 mg/dL (1-14) H Microbiology Microbiology Date/Time Source Procedure Growth Status 01/04/25 10:47 Urine - [place] Urine Culture - Preliminary Escherichia coli Resulted 01/03/25 22:22 Blood Blood Culture - Preliminary Escherichia coli Resulted Labs and/or images reviewed: Labs reviewed by me, Image(s) reviewed by me Assessment/Plan Assessment/Plan 44-year-old female with past medical history of CHF and diabetes mellitus who presented to [facility] ED with complaint of generalized weakness for the past 3 days. Patient reports she has been experiencing generalized weakness, associated with fatigue, unable to get out of bed, getting worse that prompted this visit. She had home health nurse come out in the morning today to assess her chronic foot wound on the right. 01/04: here for sepsis. source pneumonia vs uti versus gastroenteritis. Patient could also be having flare-up of SLE, has LALA could be lupus nephritis, getting labs C3-C4 ESR CRP. Patient is seen Levophed, putting a central line left EJ, puitting in right IJ. Starting broad-spectrum cefepime, doxycycline, Flagyl,. Continue home Plaquenil. If concern for lupus flare continues we will start Solu-Medrol. Otherwise continue home meds. Patient has positive blood culture Gram-negative rods, repeat blood culture. 01/05: Blood culture positive Gram-negative arlen, urine culture positive but only more than 20 K Gram-negative arlen, likely urosepsis. But also has right foot wound, could be diabetic foot possible source, we will get right foot CT non-con to eval. Wound Care onboard, no need for podiatry at this time unless is osteomyelitis., We will rule out osteomyelitis. ESR CRP significant elevation, patient remains on hydrocortisone injection to keep her out of shock, patient has been off of Levophed for 24 hour, we will deescalate care for telemetry. Source could be foot versus urine. Patient has SLE has malar rash, ESR CRP elevated could also have if lupus flare-up, we will start Solu-Medrol, nephrology onboard. Continue current management, repeat blood cultures. Continue cefepime/doxy/Flagyl. Starting Solu-Medrol 40 IV b.i.d. 01/06: Continuing IV antibiotics, blood cultures urine culture positive for E coli pansensitive. Patient's sources could include urinary, gastroenteritis, which have made to bacteremia. Continue IV antibiotics ceftriaxone Flagyl. Continue IV Solu-Medrol for possible lupus flare-up. Continue other present management. diagnosis: Sepsis, urosepsis, due to E coli, pansensitive Severe sepsis with septic shock, requiring vasopressor support Urosepsis History of SLE, SLE flare-up, in acute exacerbation likely Rule out lupus nephritis Pneumonia, Gram-negative Gram-positive possible , ruled out UTI acute cystitis, E coli, pansensitive Gastroenteritis possible, infectious etiology likely Acute kidney failure, unspecified, rule out lupus nephritis Type 2 diabetes mellitus with hyperglycemia Generalized weakness Plan: Vasopressor support maintain map more than 60 , off vasopressors Continue to follow up labs daily Ceftriaxone Flagyl, prior broad-spectrum antibiotics cefepime doxycycline Flagyl Continue home meds Plaquenil Appreciate nephrology follow up Deescalate care to telemetry BROCK Full code Plan discussed with: Patient My Orders Orders - CELINA JIMENEZ MD Procedure Category Date Status Time Blood Culture KALIA 01/05/25 In Process 15:42 Ct R Foot Wo Contrast CT 01/05/25 Resulted 15:42 Abg W/ Co-Ox RT 01/05/25 Logged 16:27 Methylprednisolone PHA 01/05/25 In Process Sod Succ (Solu Medrol 22:00 Date of Service: Jan 06, 2025 Billing Provider: CELINA JIMENEZ MD Common Visit Codes: [id number] INP/OBS CARE(HIGH) CELINA JIMENEZ MD Jan 06, 2025 15:44
--- NOTE | 2025-01-06 15:49 | DVHPN2 ---
Progress Note Date Seen: Jan 06, 2025 Medical Necessity Reason Pt with a Central, PICC or Fol: No Subjective Patient reports: No new complaints, Feels better Review of Systems: Deferred Objective vital signs Vital Sign Date Time Temp Pulse Resp B/P (MAP) Pulse Ox O2 Delivery O2 Flow Rate FiO2 01/06/25 12:54 97.9 75 16 115/75 (88) 98 97.9 01/06/25 08:00 Room Air* 0 21 Total Intake and Output 01/05/25 01/05/25 01/06/25 15:00 23:00 07:00 Intake Total 850.0 ml 500 ml 1800 ml Output Total 1400 ml Balance 850.0 ml 500 ml 400 ml medications Current Medications Medications Dose Ordered Sig/Alisha Route Start Time Stop Time Status Last Admin Dose Admin Famotidine 20 mg DAILY IV 01/04/25 10:00 01/06/25 09:59 20 MG Diagnostic Test (Pha) 1 strip IQ4HR 01/04/25 08:00 01/06/25 13:09 1 STRIP Insulin Human Regular IQ4HR SC 01/04/25 08:00 01/06/25 13:08 3 UNITS Dextrose 50 ml UD PRN IV 01/04/25 04:15 01/05/25 00:43 50 ML Sodium Chloride 10 ml Q8HR IV 01/04/25 06:00 01/06/25 14:03 10 ML Acetaminophen/ Hydrocodone Bitart 1 tab Q4HP PRN PO 01/04/25 04:15 Ondansetron HCl 4 mg Q4HP PRN IV 01/04/25 04:15 01/04/25 20:09 4 MG Docusate Sodium 100 mg BIDPRN PRN PO 01/04/25 04:15 Acetaminophen 650 mg Q6HP PRN PO 01/04/25 04:15 01/04/25 18:39 650 MG Midodrine 10 mg TID@0600,1200,1800 PO 01/04/25 06:00 01/06/25 12:26 10 MG Nitroglycerin 0.4 mg Q5MINP PRN SL 01/04/25 05:15 Morphine Sulfate 2 mg Q30M PRN IV 01/04/25 05:15 Sodium Bicarbonate 50 ml/ Sodium Chloride 1,050 ml @ 100 mls/hr [id number] IV 01/04/25 09:45 01/06/25 04:07 100 MLS/HR Cefepime HCl 50 ml @ 12.5 mls/hr DAILY IV 01/05/25 10:00 01/06/25 09:58 12.5 MLS/HR Metronidazole 100 ml @ 100 mls/hr Q8HR IV 01/04/25 14:00 01/06/25 13:56 100 MLS/HR Doxycycline Hyclate 100 ml @ 50 mls/hr Q12H IV 01/04/25 12:00 01/06/25 12:26 50 MLS/HR Hydroxychloroquine Sulfate 200 mg DAILY PO 01/05/25 10:00 01/06/25 09:59 200 MG Methylprednisolone Sodium Succinate 40 mg BID IV 01/05/25 22:00 01/06/25 09:58 40 MG laboratory and microbiology Laboratory Tests 01/06/25 05:42 Test 01/06/25 05:42 Range/Units Serum Glucose 182 H 74-106 mg/dL Microbiology Date/Time Source Procedure Growth Status 01/04/25 10:47 Urine - [place] Urine Culture - Preliminary Escherichia coli Resulted 01/03/25 22:22 Blood Blood Culture - Preliminary Escherichia coli Resulted Problem List/Assessment/Plan Problem List/Assessment/Plan Acute kidney injury superimposed Chronic Kidney Disease secondary hemodynamic mediated 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
[2025-01-06] MEDS: MIDODRINE HCL 10 MG TAB PO SCH (21:27)
[2025-01-07 01:00] VITALS: BP 151/97; PULSE 75; RESP 17; TEMP 98.3; O2SAT 99
[2025-01-07 05:00] VITALS: BP 149/88; PULSE 74; RESP 17; TEMP 98.3; O2SAT 99
[2025-01-07 05:43] LABS: Hematocrit 25.7 % (36.0-46.0); Hemoglobin 8.5 g/dL (12.2-16.2); Mean Corpuscular Hemoglobin 30.2 pg (28.0-32.0); Mean Corpuscular Volume 91.9 fL (80.0-100.0); Nucleated Red Blood Cells % 0.0 %
[2025-01-07 05:59] LABS: Alanine Aminotransferase 11 U/L (7-40); Albumin 3.4 g/dL (3.2-4.8); Alkaline Phosphatase 70 U/L (46-116); Anion Gap 11 (5-15); BUN/Creatinine Ratio 18.0 (10.0-20.0); Carbon Dioxide 23 mmol/L (20-31); Chloride 102 mmol/L (98-107); Potassium 3.9 mmol/L (3.5-5.1); Sodium 136 mmol/L (136-145); Total Protein 6.3 g/dL (5.7-8.2)
[2025-01-07 06:00] LABS: Bilirubin, Total 0.5 mg/dL (0.2-1.0)
[2025-01-07 06:05] LABS: Blood Urea Nitrogen 25 mg/dL (9-23); Calcium 8.4 mg/dL (8.7-10.4); Glucose 176 mg/dL (74-106)
[2025-01-07 08:00] VITALS: PULSE 76
[2025-01-07 09:00] VITALS: BP 135/87; PULSE 74; RESP 16; TEMP 97.8; O2SAT 98
--- NOTE | 2025-01-07 10:22 | DVHDS2 ---
Discharge Summary Date of Admission Jan 04, 2025 at 05:13 Date of Discharge: Jan 07, 2025 Labs/Diagnostic Data: Laboratory Results Test 01/07/25 08:30 01/07/25 05:28 01/05/25 02:23 01/04/25 13:04 POC Glucose 161 mg/dl (70-106) White Blood Count 6.3 10^3/uL (4.4-10.8) Red Blood Count 2.80 10^6/uL (4.0-5.20) Hemoglobin 8.5 g/dL (12.2-16.2) Hematocrit 25.7 % (36.0-46.0) Mean Corpuscular Volume 91.9 fL (80.0-100.0) Mean Corpuscular Hemoglobin 30.2 pg (28.0-32.0) Mean Corpuscular Hemoglobin Concent 32.9 g/dL (32.0-36.0) Red Cell Distribution Width 13.7 % (11.8-14.3) Platelet Count 104 10^3/uL (140-450) Mean Platelet Volume 7.8 fL (6.9-10.8) Neutrophils (%) (Auto) 88.3 % (37.0-80.0) Lymphocytes (%) (Auto) 5.4 % (10.0-50.0) Monocytes (%) (Auto) 6.1 % (0.0-12.0) Eosinophils (%) (Auto) 0.0 % (0.0-7.0) Basophils (%) (Auto) 0.2 % (0.0-2.0) Neutrophils # (Auto) 5.5 10 ^3/uL (1.6-8.6) Lymphocytes # (Auto) 0.3 10 ^3/uL (0.4-5.4) Monocytes # (Auto) 0.4 10 ^3/uL (0-1.3) Eosinophils # (Auto) 0 10 ^3/uL (0-0.8) Basophils # (Auto) 0 10 ^3/uL (0-0.2) Nucleated Red Blood Cells 0.0 % Sodium Level 136 mmol/L (136-145) Potassium Level 3.9 mmol/L (3.5-5.1) Chloride Level 102 mmol/L (98-107) Carbon Dioxide Level 23 mmol/L (20-31) Anion Gap 11 (5-15) Blood Urea Nitrogen 25 mg/dL (9-23) Creatinine 1.39 mg/dL (0.550-1.02) Glomerular Filtration Rate Calc 48 mL/min (>90) BUN/Creatinine Ratio 18.0 (10.0-20.0) Serum Glucose 176 mg/dL (74-106) Calcium Level 8.4 mg/dL (8.7-10.4) Total Bilirubin 0.5 mg/dL (0.2-1.0) Aspartate Amino Transferase (AST) 17 U/L (13-40) Alanine Aminotransferase (ALT) 11 U/L (7-40) Alkaline Phosphatase 70 U/L (46-116) Total Protein 6.3 g/dL (5.7-8.2) Albumin 3.4 g/dL (3.2-4.8) Differential Total Cells Counted 100.0 (100) Neutrophils % (Manual) 81 (37.0-80.0) Band Neutrophils % (Manual) 5 Lymphocytes % (Manual) 4 (10.0-50.0) Monocytes % (Manual) 9 (0-12) Eosinophils % (Manual) 1 (0-7) Basophils % (Manual) 0 (0.0-2.0) Metamyelocytes % (manual) 0 Myelocytes % (Manual) 0 Promyelocytes % (Manual) 0 Blast Cells % (Manual) 0 Reactive Lymphocytes 0 Platelet Estimate Decreased Red Blood Cell Morphology Normal Random Vancomycin Level 6.2 ug/mL (5-10) Erythrocyte Sedimentation Rate 126 mm/hr (0-20) Lactic Acid Level 1.0 mmol/L (0.4-2.0) Complement C3 126 mg/dL (82-167) Complement C4 33 mg/dL (12-38) Test 01/04/25 07:10 01/04/25 04:55 Urine Color Colorless (Yellow) Urine Clarity Turbid (Clear) Urine pH 7.0 (5.0-9.0) Urine Specific [place] 1.013 (1.001-1.035) Urine Protein 1+ (Negative) Urine Ketones Negative (Negative) Urine Blood 1+ /uL (Negative) Urine Nitrite 1+ (Negative) Urine Bilirubin Negative (Negative) Urine Urobilinogen Normal mg/dL (Negative) Urine Leukocyte Esterase 3+ /uL (Negative) Urine RBC 5 /hpf (0 - 4) Urine WBC Clumps Present /hpf (None Seen) Urine Microscopic WBC 329 /HPF (0-5) Urine Squamous Epithelial Cells Few /hpf (<5) Urine Bacteria Few /hpf (None Seen) Urine Creatinine 97.84 mg/dL (30.0-125.0) Urine Protein/Creatinine Ratio 1.02 Urine Sodium 92 mmol/L (40-220) Urine Glucose Normal mg/dL (Normal) Urine Total Protein 99.4 mg/dL (1-14) Hemoglobin A1c 6.4 % A1C (<5.7) Uric Acid 7.1 mg/dL (3.1-7.8) Phosphorus Level 3.0 mg/dL (2.4-5.1) Magnesium Level 2.1 mg/dL (1.6-2.6) C-Reactive Protein High Sensitivity > 20.00 mg/dL (<1.0) B-Type Natriuretic Peptide 29.27 pg/mL (0-100) Amylase Level 94 U/L (30-118) Vitamin D 25-Hydroxy 17.1 ng/mL (30.0-100) Parathyroid Hormone (Intact) 53.9 pg/mL (18.4-80.1) Other Laboratory Tests 01/07/25 05:28 Brief Hx & Hospital Course: 44-year-old female with past medical history of CHF and diabetes mellitus who presented to [facility] ED with complaint of generalized weakness for the past 3 days. Patient reports she has been experiencing generalized weakness, associated with fatigue, unable to get out of bed, getting worse that prompted this visit. She had home health nurse come out in the morning today to assess her chronic foot wound on the right. 01/04: here for sepsis. source pneumonia vs uti versus gastroenteritis. Patient could also be having flare-up of SLE, has LALA could be lupus nephritis, getting labs C3-C4 ESR CRP. Patient is seen Levophed, putting a central line left EJ, puitting in right IJ. Starting broad-spectrum cefepime, doxycycline, Flagyl,. Continue home Plaquenil. If concern for lupus flare continues we will start Solu-Medrol. Otherwise continue home meds. Patient has positive blood culture Gram-negative rods, repeat blood culture. 01/05: Blood culture positive Gram-negative arlen, urine culture positive but only more than 20 K Gram-negative arlen, likely urosepsis. But also has right foot wound, could be diabetic foot possible source, we will get right foot CT non-con to eval. Wound Care onboard, no need for podiatry at this time unless is osteomyelitis., We will rule out osteomyelitis. ESR CRP significant elevation, patient remains on hydrocortisone injection to keep her out of shock, patient has been off of Levophed for 24 hour, we will deescalate care for telemetry. Source could be foot versus urine. Patient has SLE has malar rash, ESR CRP elevated could also have if lupus flare-up, we will start Solu-Medrol, nephrology onboard. Continue current management, repeat blood cultures. Continue cefepime/doxy/Flagyl. Starting Solu-Medrol 40 IV b.i.d. 01/06: Continuing IV antibiotics, blood cultures urine culture positive for E coli pansensitive. Patient's sources could include urinary, gastroenteritis, which have made to bacteremia. Continue IV antibiotics ceftriaxone Flagyl. Continue IV Solu-Medrol for possible lupus flare-up. Continue other present management. 01/07: Patient does not feel safe being discharge at this point, ESR CRP are elevated but C3-C4 are normal. Patient was here for septic shock requiring Levophed, we are weaning off midodrine and hydrocortisone, patient could use 2 more days of IV antibiotics while shock steroids get weaned off, needs to go to in [facility] facility to complete treatment. Stable for discharge today to [facility]. diagnosis: Sepsis, urosepsis, due to E coli, pansensitive Severe sepsis with septic shock, requiring vasopressor support Urosepsis History of SLE, SLE flare-up, in acute exacerbation likely Rule out lupus nephritis Pneumonia, Gram-negative Gram-positive possible , ruled out UTI acute cystitis, E coli, pansensitive Gastroenteritis possible, infectious etiology likely Acute kidney failure, unspecified, rule out lupus nephritis Type 2 diabetes mellitus with hyperglycemia Generalized weakness plan: - continuing IV antibiotics Holding off for the steroids Needs2 more days of IV antibiotics, stable for discharge to in [facility] facility. Condition at Discharge: Fair Final Diagnosis/Problems List Sepsis, urosepsis, due to E coli, pansensitive Severe sepsis with septic shock, requiring vasopressor support Urosepsis History of SLE, SLE flare-up, in acute exacerbation likely Rule out lupus nephritis Pneumonia, Gram-negative Gram-positive possible , ruled out UTI acute cystitis, E coli, pansensitive Gastroenteritis possible, infectious etiology likely Acute kidney failure, unspecified, rule out lupus nephritis Type 2 diabetes mellitus with hyperglycemia Generalized weakness Discharge Disposition: Home Discharge Instruct/Medications Scheduled Acetaminophen (Tylenol 8 Hour Arthritis), 650 MG PO TID Acetaminophen W/ Codeine (Acetaminophen/Codeine #2), 1 TAB PO Q6HPRN, (Reported) Amlodipine Besylate (Amlodipine Besylate), 1 TAB PO DAILY, (Reported) Aspirin (Aspirin Low Dose), 1 TAB PO DAILY, (Reported) Atorvastatin Calcium (Atorvastatin Calcium), 1 TAB PO DAILY, (Reported) Cephalexin (Keflex Capsule), 1 CAP PO TID, (Reported) Cetirizine HCl (Cetirizine Hydrochloride), 1 TAB PO DAILY, (Reported) Cyclobenzaprine HCl (Cyclobenzaprine Hydrochlo), 1 TAB PO BID, (Reported) Hydroxychloroquine Sulfate (Plaquenil), 1 TAB PO DAILY, (Reported) Lisinopril (Lisinopril), 1 TAB PO BID, (Reported) Magnesium Oxide (Magnesium Oxide), 2 TAB PO BID, (Reported) Metformin Hydrochloride (Metformin Hcl Er), 2 TAB PO BID, (Reported) Metoprolol Succinate (Metoprolol Succinate Er), 1 TAB PO DAILY, (Reported) Metoprolol Tartrate (Metoprolol Tartrate), 1 TAB PO BID, (Reported) Mupirocin (Pseudomonas Fluores (Mupirocin), 1 APPLIC TOP BID, (Reported) Mycophenolate Mofetil (Mycophenolate Mofetil), 2 TAB PO BID, (Reported) Naproxen (Naprosyn Tablet), 1 TAB PO BID, (Reported) Omeprazole (Cvs Omeprazole Odt), 40 MG PO DAILY, (Reported) Prednisone (Prednisone), TAB PO UD, (Reported) Sulfamethoxazole W/Trimethopri (Bactrim Ds Tablet), 1 TAB PO BID Miscellaneous Medications Ferrous Sulfate (Ferosul), 325 MG PO, (Reported) Gabapentin (Gabapentin), PO, (Reported) Glipizide (Glipizide Er), PO, (Reported) Insulin NPH Isophane & Reg (Hu (Humulin 70/30 Kwikpen (70-30) 100 Unit/ml), 10 UNITS SC, (Reported) Spironolactone (Spironolactone), TAB PO, (Reported) Discharge Statement: "Patient was advised to return to the ER or call 911 if any headaches, dizziness, shortness of breath, chest pain, abdominal pain, bleeding, fevers, or worsening of medical condition. Patient was counseled about treatment plan, medications, possible side effects, patientverbalized understanding. All questions were answered to the best of my ability. This discharge took greater then 30 minutes in planning, reviewing documentation, counseling the patient, and discussing with other team members." ASSESSMENT ASSESSMENT Assessment Date of Service: Jan 07, 2025 Billing Provider: CELINA JIMENEZ MD Common Visit Codes: [id number] DISCH DAY >30min CELINA JIMENEZ MD Jan 07, 2025 10:22
[2025-01-07 13:00] VITALS: BP 106/65; PULSE 64; RESP 18; TEMP 98.9; O2SAT 100
--- NOTE | 2025-01-07 14:46 | DVHPN2 ---
Progress Note Date Seen: Jan 07, 2025 Medical Necessity Reason Pt with a Central, PICC or Fol: No Subjective Patient reports: No new complaints, Feels better Review of Systems: Deferred Objective vital signs Vital Sign Date Time Temp Pulse Resp B/P (MAP) Pulse Ox O2 Delivery O2 Flow Rate FiO2 01/07/25 13:00 98.9 64 18 106/65 (79) 100 98.9 01/06/25 20:00 Room Air* 0 21 Total Intake and Output 01/06/25 01/06/25 01/07/25 15:00 23:00 07:00 Intake Total 250 ml 1300 ml 418 ml Output Total 590 ml Balance 250 ml 710 ml 418 ml medications Current Medications Medications Dose Ordered Sig/Alisha Route Start Time Stop Time Status Last Admin Dose Admin Famotidine 20 mg DAILY IV 01/04/25 10:00 01/07/25 10:26 20 MG Diagnostic Test (Pha) 1 strip IQ4HR 01/04/25 08:00 01/07/25 12:00 1 STRIP Insulin Human Regular IQ4HR SC 01/04/25 08:00 01/07/25 12:45 3 UNITS Dextrose 50 ml UD PRN IV 01/04/25 04:15 01/05/25 00:43 50 ML Sodium Chloride 10 ml Q8HR IV 01/04/25 06:00 01/07/25 05:49 10 ML Acetaminophen/ Hydrocodone Bitart 1 tab Q4HP PRN PO 01/04/25 04:15 Ondansetron HCl 4 mg Q4HP PRN IV 01/04/25 04:15 01/04/25 20:09 4 MG Docusate Sodium 100 mg BIDPRN PRN PO 01/04/25 04:15 Acetaminophen 650 mg Q6HP PRN PO 01/04/25 04:15 01/04/25 18:39 650 MG Nitroglycerin 0.4 mg Q5MINP PRN SL 01/04/25 05:15 Morphine Sulfate 2 mg Q30M PRN IV 01/04/25 05:15 Metronidazole 100 ml @ 100 mls/hr Q8HR IV 01/04/25 14:00 01/07/25 05:49 100 MLS/HR Hydroxychloroquine Sulfate 200 mg DAILY PO 01/05/25 10:00 01/07/25 10:26 200 MG Midodrine 10 mg BID PO 01/06/25 22:00 01/06/25 21:27 10 MG Ceftriaxone Sodium 50 ml @ 100 mls/hr DAILY@09 IV 01/06/25 15:45 01/07/25 10:25 100 MLS/HR Examination: GENERAL:Normal, HEENT:Normal, NECK:Normal, LUNGS:Normal, CVS:Normal, ABDOMEN:Normal, MSK:Normal, SKIN:Normal, NEURO:Normal, :Normal laboratory and microbiology Laboratory Tests 01/07/25 05:28 Test 01/07/25 05:28 Range/Units Serum Glucose 176 H 74-106 mg/dL Microbiology Date/Time Source Procedure Growth Status 01/05/25 17:52 Blood Blood Culture - Preliminary NO GROWTH AFTER 24 HOURS OF INCUBATION. 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
== END 2025-01-07 14:40 | disposition short-term general hospital (02) | DRG 720 ==
LOC: EDBD 18:33 → ER 18:33 → OVERFLOW 01-04 05:13 → TELE-EAST 01-05 21:55
PROVIDERS: ADMIT Student in an Organized Health Care Education/Training Program; ATTEND Student in an Organized Health Care Education/Training Program
DX: A41.51 Sepsis due to Escherichia coli [E. coli] (principal); R65.21 Severe sepsis with septic shock; E87.20 Acidosis, unspecified; M32.14 Glomerular disease in systemic lupus erythematosus; E86.0 Dehydration; N17.9 Acute kidney failure, unspecified; N30.00 Acute cystitis without hematuria; I50.42 Chronic combined systolic (congestive) and diastolic (congestive) heart failure; E11.65 Type 2 diabetes mellitus with hyperglycemia; N18.32 Chronic kidney disease, stage 3b; A09 Infectious gastroenteritis and colitis, unspecified; E11.22 Type 2 diabetes mellitus with diabetic chronic kidney disease; Z83.3 Family history of diabetes mellitus
CPT/HCPCS: 36415; 36600; 71045; 73700; 74176; 80048; 80053; 80202; 81001; 82150; 82306; 82570; 82805; 82962; 83036; 83605; 83735; 83880; 83970; 84100; 84156; 84300; 84550; 85007; 85025; 85027; 85652; 86141; 86160; 87040; 87077; 87086; 87088; 87186; 93005; 93306; 96365; G0378; J1815; J2405; J2543; J3490